=== PATIENT | female | born 1940 | race Caucasian/White ===

== ENCOUNTER 2022-11-15 21:26 | Inpatient (IN) | payer MEDICARE, OTHER, SELFPAY ==
--- NOTE | ~2022-11-15 | XR_ITS ---
EXAMINATION: XR CHEST CLINICAL INFORMATION: Cough COMPARISON: None available. TECHNIQUE: Frontal view of the chest was obtained. FINDINGS: Central density associated with the right hilum. This may represent atelectasis or infiltrate or possibly hilar increase. Central lesion cannot be excluded. The left lung is grossly clear. There is no effusion. No failure. XR/XR chest 1V IMPRESSION: Central density associated with the right hilum could represent central atelectasis or infiltrate. Hilar increase would need to be considered here. Central lesion cannot be excluded. I would in the least recommend a follow-up film after treatment to assess for resolution 4-6 weeks.
--- NOTE | ~2022-11-15 | XR_ITS ---
EXAMINATION: XR KNEE, LEFT CLINICAL INFORMATION: Pain, swelling COMPARISON: None available. TECHNIQUE: Two views of the left knee. FINDINGS: Degenerative changes. Most noted in the patellofemoral compartment. Meniscal calcifications are noted. Some calcification superior to the patellofemoral articulation could represent capsular calcification or loose body formation. Probable small effusion. XR/XR knee LT 2V IMPRESSION: Degenerative changes and probable small effusion. No acute fracture or dislocation. If further evaluation is warranted recommend MR
[2022-11-15 22:06] VITALS: BP 128/60; BP 160/70; PULSE 70; PULSE 81; RESP 18; TEMP 36.9; O2SAT 98; BMI 31.2
--- NOTE | 2022-11-15 22:06 | ECG_ITS ---
Test Reason : FATIGUE Blood Pressure : / mmHG Vent. Rate : 076 BPM Atrial Rate : 076 BPM P-R Int : 166 ms QRS Dur : 124 ms QT Int : 398 ms P-R-T Axes : 054 -29 078 degrees QTc Int : 447 ms Normal sinus rhythm Left ventricular hypertrophy with QRS widening and repolarization abnormality ( R in aVL , Polo product , Romhilt-Barrera ) Abnormal ECG When compared with ECG of 28-FEB-2019 01:11, No significant change was found Referred By: Gabriela Crowe Electronically Signed By:DAMION MAST MD
--- NOTE | 2022-11-15 22:21 | ED.URI ---
HPI - URI/Sore Throat General Chief Complaint: Upper Respiratory Symptoms Stated Complaint: Weakness/ cough Time Seen by Provider: 11/15/22 21:40 Source: patient Mode of arrival: EMS Limitations: no limitations History of Present Illness HPI Narrative: Patient comes to the emergency room complaining of cough for a week. Patient states that she has been coughing cream sputum, denies any significant shortness of breath. Patient denies fever or chills. Patient tried 2 bottles of [id number] [employer] brand cough syrup without any relief. Patient states that she is usually very active, but over last few days, she has been too weak to do her exercises. Today, patient went to use the restroom in the morning, patient was too weak to even sit up which is not like her. Patient called 911, she was helped up, she was offered to come to the hospital but she declined. Then, at night, after the patient spoke with her neighbor, son and the on-call nurse from her insurance, she was urged to come to the emergency room which she did. Related Data Allergies Allergy/AdvReac Type Severity Reaction Status Date / Time aspirin Allergy Unknown Verified 01/20/20 00:00 No Known Allergies Allergy Unverified 03/02/20 17:22 [No Known Allergies*] Review of Systems Review of Systems: Constitutional : No Weight loss, No Fever, No Chills, No Night Sweats, complaining of fatigue ENT/Mouth : No Hearing loss, No Ear Pain, No Nasal Congestion, No Sinus Pain, No Hoarseness, No sore throat, No Rhinorrhea, No Swallowing Difficulty Eyes: No Eye Pain, No Swelling, No Redness, No Foreign Body, No Discharge, No Vision Changes Cardiovascular : No Chest Pain, No SOB, No Dyspnea on Exertion, No Orthopnea, No Edema, No Palpitations Respiratory : Complaining of cough with green sputum, No Wheezing, No Smoke Exposure, No Dyspnea Gastrointestinal : No Nausea, No Vomiting, No Diarrhea, No Constipation, No abdominal Pain, No Hematochezia, No Melena Genitourinary : no irregular bleeding, No Dysuria, No Urinary Frequency, No Hematuria, No Urinary Incontinence, No Urgency, No Flank Pain, No Urinary Flow Changes, No Hesitancy Musculoskeletal : No joint pain, No Myalgias, No Joint Swelling Skin : No Skin Lesions, No rash Neuro : No Weakness, No Numbness, No Paresthesias, No Loss of Consciousness, No Dizziness, No Headache Psych : No Anxiety/Panic, No Depression, No SI/HI/AH/VH, No Social Issues, Heme/Lymph: No Bruising, No Bleeding,No Lymphadenopathy Endocrine : No Polyuria, No Polydipsia, No Temperature Intolerance [facility] Past Medical History Medical History (Updated 11/15/22 @ 23:19 by Gabriela Crowe MD) Hypertension Physical Exam Vital Signs: Vital Signs: Last Vital Signs Temp 98.4 F 11/15/22 22:06 Pulse 81 11/15/22 22:25 Resp 12 11/15/22 22:25 BP 128/60 11/15/22 22:25 Pulse Ox 98 11/15/22 22:25 O2 Del Method Room Air 11/15/22 22:25 BMI result Body Mass Index 31.2 Const: Other: Appearance: Alert. Oriented X3. No acute distress. Eyes: Pupils equal, round and reactive to light. ENT: Pharynx normal. Neck: Normal inspection. Neck supple. No lymph nodes noted. No crepitus CVS: Normal heart rate and rhythm. Pulses normal. Normal S1 and S2 Respiratory: No respiratory distress. Breath sounds normal. No Wheezing. No rales Abdomen: Soft and nontender. No rigidity. No distention. Skin: Skin warm and dry. Normal skin color. Normal skin turgor. Extremities: No lower extremity edema. No Lacerations. No Rash Neuro: Oriented X 3. No motor deficit. No sensory deficit. Moving all extremities. No slurred speech. CN 2 through 12 grossly intact Psych: calm, cooperative, normal affect Course Course Course Narrative: -all of patient's labs and imaging pending Medical Decision Making Medical Decision Making [facility] Narrative: -my interpretation of chest x-ray: Possible pneumonia -patient's white blood cell count 14.7, CT scan shows pneumonia. Patient was given ceftriaxone and azithromycin. Patient does not have a fever, sepsis not suspected. -patient is usually a very active lady, does yoga everyday. Today, she could not even get up from a seated position. -I discussed the patient with Dr. Rausch, patient being admitted Admission/Observation Consideration of admission/observation: Escalation of care including admission/observation considered Consult Healthcare Provider Management of the patient was discussed with: Hospitalist Lab Data [facility] Lab Attestation statement: I reviewed the patient's lab results. 11/15/22 22:39 11/15/22 22:39 Labs: Lab Results 11/15/22 11/15/22 11/15/22 Range/Units 22:39 22:39 22:39 WBC 14.7 H (4.8-10.8) X10*3/uL RBC 3.76 L (4.20-5.50) X10*6/uL Hgb 11.1 L (12.0-16.0) g/dl Hct 33.2 L (37.0-47.0) % MCV 88.3 (80.0-98.0) fL MCH 29.5 (27.0-33.0) pg MCHC 33.4 (31.0-35.0) g/dl RDW 13.8 (11.0-16.0) % Plt Count 215 (160-400) X10*3/uL MPV 9.6 (9.4-12.3) fL Immature Gran % (Auto) 0.7 H (0.0-0.4) % Neut % (Auto) 71.8 (45-73) % Lymph % (Auto) 11.9 L (20-40) % Fountain % (Auto) 13.8 H (2-11) % Eos % (Auto) 1.6 (0-4) % Baso % (Auto) 0.2 (0-2) % Lymph # (Auto) 1.8 (1.2-4.9) X10*3/uL Fountain # (Auto) 2.0 H (0.1-1.2) X10*3/uL Eos # (Auto) 0.2 (0.0-0.4) X10*3/uL Baso # (Auto) 0.0 (0.0-0.2) X10*3/uL Abs Immat Gran (auto) 0.10 H (0.00-0.03) X10*3/uL Absolute Neuts (auto) 10.6 H (2.0-8.3) x10*3/uL Absolute Nucleated RBC 0.000 (0.0-0.012) X10*3/uL Nucleated RBC % (auto) 0.0 (0.0-0.2) /100WBC PT (10.0-13.1) SEC INR (0.9-1.1) VBG pH (7.32-7.43) VBG pCO2 mmHg VBG pO2 mmHg VBG HCO3 (22-26) mmol/L VBG O2 Saturation % VBG Base Excess mmol/L Sodium 129 L (135-145) mmol/L Potassium 4.1 (3.3-5.1) mmol/L Chloride 95 L (96-108) mmol/L Carbon Dioxide 25 (22-29) mmol/L Anion Gap 13 (12-20) BUN 22 H (9-16) mg/dL Creatinine 0.93 (0.5-1.4) mg/dL Estim Creat Clear Calc 40.0 Estimated GFR 57 Random Glucose 108 (60-115) mg/dL Lactic Acid (0.5-2.0) mmol/L Calcium 9.2 (8.4-10.2) mg/dL Troponin I High Sens 7.6 (<3.5-17.0) ng/L B-Natriuretic Peptide (<100) pg/mL 11/15/22 11/15/22 11/15/22 Range/Units 22:39 22:39 22:39 WBC (4.8-10.8) X10*3/uL RBC (4.20-5.50) X10*6/uL Hgb (12.0-16.0) g/dl Hct (37.0-47.0) % MCV (80.0-98.0) fL MCH (27.0-33.0) pg MCHC (31.0-35.0) g/dl RDW (11.0-16.0) % Plt Count (160-400) X10*3/uL MPV (9.4-12.3) fL Immature Gran % (Auto) (0.0-0.4) % Neut % (Auto) (45-73) % Lymph % (Auto) (20-40) % Fountain % (Auto) (2-11) % Eos % (Auto) (0-4) % Baso % (Auto) (0-2) % Lymph # (Auto) (1.2-4.9) X10*3/uL Fountain # (Auto) (0.1-1.2) X10*3/uL Eos # (Auto) (0.0-0.4) X10*3/uL Baso # (Auto) (0.0-0.2) X10*3/uL Abs Immat Gran (auto) (0.00-0.03) X10*3/uL Absolute Neuts (auto) (2.0-8.3) x10*3/uL Absolute Nucleated RBC (0.0-0.012) X10*3/uL Nucleated RBC % (auto) (0.0-0.2) /100WBC PT 13.0 (10.0-13.1) SEC INR 1.1 (0.9-1.1) VBG pH (7.32-7.43) VBG pCO2 mmHg VBG pO2 mmHg VBG HCO3 (22-26) mmol/L VBG O2 Saturation % VBG Base Excess mmol/L Sodium (135-145) mmol/L Potassium (3.3-5.1) mmol/L Chloride (96-108) mmol/L Carbon Dioxide (22-29) mmol/L Anion Gap (12-20) BUN (9-16) mg/dL Creatinine (0.5-1.4) mg/dL Estim Creat Clear Calc Estimated GFR Random Glucose (60-115) mg/dL Lactic Acid 0.7 (0.5-2.0) mmol/L Calcium (8.4-10.2) mg/dL Troponin I High Sens (<3.5-17.0) ng/L B-Natriuretic Peptide 168 H (<100) pg/mL 11/15/22 Range/Units 22:44 WBC (4.8-10.8) X10*3/uL RBC (4.20-5.50) X10*6/uL Hgb (12.0-16.0) g/dl Hct (37.0-47.0) % MCV (80.0-98.0) fL MCH (27.0-33.0) pg MCHC (31.0-35.0) g/dl RDW (11.0-16.0) % Plt Count (160-400) X10*3/uL MPV (9.4-12.3) fL Immature Gran % (Auto) (0.0-0.4) % Neut % (Auto) (45-73) % Lymph % (Auto) (20-40) % Fountain % (Auto) (2-11) % Eos % (Auto) (0-4) % Baso % (Auto) (0-2) % Lymph # (Auto) (1.2-4.9) X10*3/uL Fountain # (Auto) (0.1-1.2) X10*3/uL Eos # (Auto) (0.0-0.4) X10*3/uL Baso # (Auto) (0.0-0.2) X10*3/uL Abs Immat Gran (auto) (0.00-0.03) X10*3/uL Absolute Neuts (auto) (2.0-8.3) x10*3/uL Absolute Nucleated RBC (0.0-0.012) X10*3/uL Nucleated RBC % (auto) (0.0-0.2) /100WBC PT (10.0-13.1) SEC INR (0.9-1.1) VBG pH 7.41 (7.32-7.43) VBG pCO2 44 mmHg VBG pO2 45 mmHg VBG HCO3 28 H (22-26) mmol/L VBG O2 Saturation 74.0 % VBG Base Excess 3.9 mmol/L Sodium (135-145) mmol/L Potassium (3.3-5.1) mmol/L Chloride (96-108) mmol/L Carbon Dioxide (22-29) mmol/L Anion Gap (12-20) BUN (9-16) mg/dL Creatinine (0.5-1.4) mg/dL Estim Creat Clear Calc Estimated GFR Random Glucose (60-115) mg/dL Lactic Acid (0.5-2.0) mmol/L Calcium (8.4-10.2) mg/dL Troponin I High Sens (<3.5-17.0) ng/L B-Natriuretic Peptide (<100) pg/mL Radiology Impression Discussion of test interpretation with radiology: I have reviewed the radiologist's reading. Radiologist Impression: FINDINGS: Central density associated with the right hilum. This may represent atelectasis or infiltrate or possibly hilar increase. Central lesion cannot be excluded. The left lung is grossly clear. There is no effusion. No failure. XR/XR chest 1V IMPRESSION: Central density associated with the right hilum could represent central atelectasis or infiltrate. Hilar increase would need to be considered here. Central lesion cannot be excluded. I would in the least recommend a follow-up film after treatment to assess for resolution 4-6 weeks. Critical Care Time Critical Care Time Critical Care Time: Yes Total Critical Care Time: 60 Attestation: I have personally provided critical care time. Time includes review of lab data, radiology results, discussion with consultants, and monitoring for potential decompensation. Intervention performed as documented. Discharge Plan Discharge Clinical Impression: Pneumonia, Weakness, Chronic hyponatremia Patient Disposition: Admitted As Inpatient
[2022-11-15 22:25] VITALS: BP 128/60; PULSE 81; RESP 12; O2SAT 98
[2022-11-15 22:47] LABS: Basophils Percent Auto 0.2 % (0-2); Eosinophils Absolute Auto 0.2 X10*3/uL (0.0-0.4); Eosinophils Percent Auto 1.6 % (0-4); Hematocrit 33.2 % (37.0-47.0); Hemoglobin 11.1 g/dl (12.0-16.0); Imm Gran Pct Auto 0.7 % (0.0-0.4); Lymphocytes Absolute Auto 1.8 X10*3/uL (1.2-4.9); Lymphocytes Percent Auto 11.9 % (20-40); MANUAL DIFF FLAG SCAN; Mean Corpuscular HGB Conc 33.4 g/dl (31.0-35.0); Mean Corpuscular Hemoglobin 29.5 pg (27.0-33.0); Mean Corpuscular Volume 88.3 fL (80.0-98.0); Mean Platelet Volume 9.6 fL (9.4-12.3); Monocytes Percent Auto 13.8 % (2-11); Neutrophils Absolute Auto 10.6 x10*3/uL (2.0-8.3); Neutrophils Percent Auto 71.8 % (45-73); Platelet Count 215 X10*3/uL (160-400); Red Blood Count 3.76 X10*6/uL (4.20-5.50); Red Cell Distribution Width 13.8 % (11.0-16.0); SCAN SMEAR FLAG 1; White Blood Count 14.7 X10*3/uL (4.8-10.8)
[2022-11-15 22:52] LABS: INTERNATIONAL NORM RATIO 1.1 (0.9-1.1)
[2022-11-15 22:54] LABS: VBG Base Excess 3.9 mmol/L; VBG HCO3 28 mmol/L (22-26); VBG pCO2 44 mmHg; VBG pH 7.41 (7.32-7.43); VBG pO2 45 mmHg
[2022-11-15 23:02] LABS: Lactic Acid 0.7 mmol/L (0.5-2.0)
[2022-11-15 23:05] LABS: Anion Gap 13 (12-20); Blood Urea Nitrogen 22 mg/dL (9-16); Calcium 9.2 mg/dL (8.4-10.2); Carbon Dioxide 25 mmol/L (22-29); Chloride 95 mmol/L (96-108); Estimated Glomerular Filt Rate 57; Glucose Random 108 mg/dL (60-115); Potassium 4.1 mmol/L (3.3-5.1); Sodium 129 mmol/L (135-145)
[2022-11-15 23:06] LABS: Venous Blood Gas Refer to POC result
[2022-11-15 23:09] LABS: B Type Natriuretic Peptide 168 pg/mL (<100); Troponin-I High Sensitivity 7.6 ng/L (<3.5-17.0)
[2022-11-15] MEDS: Benzonatate 100 MG CAPSULE PO (23:19)
[2022-11-15 23:22] LABS: COVID-19 Test Negative (Negative); IDNOW Serial# 08D9AD1C; IDNOW Serial# BCCEAD1C; Influenza A Negative (Negative); Influenza B2 Negative (Negative)
[2022-11-15] MEDS: Azithromycin 500 MG in 0.9 % Sodium Chloride 250 ML 125 MG IV (23:28)
[2022-11-15] MEDS: cefTRIAXone sodium 1 GM in 0.9 % Sodium Chloride 50 ML IV ×2 (23:29→23:33)
[2022-11-15] MEDS: 0.9 % Sodium Chloride 1,000 ML 999 ML IVCONT (23:30)
[2022-11-16 00:01] LABS: SLIDE REVIEW VERIFIED
[2022-11-16 00:09] LABS: Appearance Urine Clear; Color Urine Yellow; Glucose Urine UA Negative (Negative); Leukocyte Esterase Urine Negative (Negative); Nitrite Urine Negative (Negative); PH 5.5 (5.0-9.0); Specific Gravity - Urine <= 1.005 (1.005-1.025); Urine Blood Negative (Negative); Urine Ketones Negative (Negative); Urine Protein Trace mg/dL (Neg-Trace)
[2022-11-16 01:00] VITALS: PULSE 77; O2SAT 98
[2022-11-16 01:04] LABS: Uric Acid 5.3 mg/dL (2.4-5.7)
[2022-11-16 01:53] VITALS: BMI 29.5
--- NOTE | 2022-11-16 02:11 | PC.NURSE ---
Addendum entered by Jaqui Banegas RN 11/16/22 02:27: patient receiving nurse was notified of the medication occurence Original Note: patient report was given to the receiving nurse patient was [id number] patient had no complaints of pain at this time patient was stable and clear to be transferred safely to the receiving unit
--- NOTE | 2022-11-16 02:23 | PC.NURSE ---
Patient received one order of ceftraixone 1g only not two dosages pharmacy was notified of the occurrence pharmacy advised to write a note due to the error could not be corrected at this time infusion began at [id number] 15, 2022 as noted in the mar and please disregard cancelled order for 2329November 15, 2022
[2022-11-16] MEDS: traMADoL HCL 50 MG TABLET PO (02:45)
[2022-11-16] MEDS: traZODone HCL 50 MG TABLET PO ×2 (02:45→21:49)
[2022-11-16] MEDS: guaiFENesin DM 100/10/5 ML 5 ML SYRUP PO ×3 (02:46→12:04)
[2022-11-16] MEDS: Benzonatate 100 MG CAPSULE PO ×4 (02:46→21:49)
[2022-11-16] MEDS: Erythromycin Base 0.5% Oph Oin 1 GM TUBE 1 CM EYE-BOTH ×3 (02:48→21:49)
[2022-11-16 02:59] VITALS: BP 148/64; PULSE 73; RESP 16; TEMP 37.2; O2SAT 96
--- NOTE | 2022-11-16 06:19 | P.HPHOSP_ITS ---
History of Present Illness Date of Service: 11/15/22 Chief Complaint: Cough 82-year-old female with past medical history of hypertension, depression, neurogenic bladder, chronic pain presents the hospital with complaints of cough for the past 1 week. Patient reports that her cough has worsened, she has also had shortness of breath, and worsening weakness to the point that now she has difficulty ambulating from her chair to the kitchen. Patient lives alone, is usually completely independent. Patient denies any fever no chills, no chest pain, no abdominal pain, no nausea or vomiting, no diarrhea constipation, no urinary symptoms, no lower extremity edema. Patient is complaining of left knee pain and swelling, status chronic arthritis On arrival to the ED patient hemodynamically stable no significant abnormal vitals Labs are significant for WBC count of 14.7, hemoglobin of 11.1, hematocrit 33.2, sodium of 129 which is chronically in the same range, BNP of 168, COVID-19, and influenza negative X-ray of the knee shows central density associated with right hilum which can represent infiltrate, mass cannot be ruled out, recommended repeat imaging after resolution of pneumonia and for 6 weeks Review of Systems Review of Systems: Yes all other systems are reviewed and are negative [facility] Medical History Arthritis Chronic pain Hypertension Neurogenic bladder Surgical History (Updated 11/16/22 @ 06:25 by Lizbeth Galdamez MD) Previous back surgery Social History Alcohol intake: never Patient Tobacco Use Status: Never used Tobacco Smoked in Last 30 Days: No Use of substances other than those prescribed or required for medical reasons: No Advance Directives: No Advance Directives Information Provided: Yes Nutrition Risks: No Nutritional Risk Meds Allergies Allergy/AdvReac Type Severity Reaction Status Date / Time aspirin Allergy Unknown Hives Verified 11/15/22 23:25 Active Medications: Current Medications Acetaminophen (Acetaminophen 325 Mg Tablet) 650 mg PO Q6H PRN PRN Reason: Pain, Mild (Pain Scale 1-3) Amlodipine Besylate (Amlodipine Besylate 5 Mg Tablet) 5 mg PO DAILY [facility] Benzonatate (Benzonatate 100 Mg Capsule) 100 mg PO TID [facility] Last Admin: 11/16/22 02:46 Dose: 100 mg Carvedilol (Carvedilol 6.25 Mg Tablet) 6.25 mg PO BID [facility]; Protocol Celecoxib (Celecoxib 200 Mg Capsule) 200 mg PO DAILY [facility] Docusate Sodium (Docusate Sodium 100 Mg Capsule) 100 mg PO DAILY PRN PRN Reason: Constipation Enoxaparin Sodium (Enoxaparin Sodium 40 Mg/0.4 Ml Syringe) 40 mg SUBCUT Q24H [facility] Erythromycin (Erythromycin Base 0.5% Oph Oin 1 Gm Tube) 1 cm EYE-BOTH BID [facility] Last Admin: 11/16/22 02:48 Dose: 1 cm Escitalopram Oxalate (Escitalopram Oxalate 20 Mg Tablet) 20 mg PO DAILY [facility] Guaifenesin/Dextromethorphan (Guaifenesin Dm 100/10/5 Ml 5 Ml Syrup) 5 ml PO Q4H PRN PRN Reason: couh Last Admin: 11/16/22 02:46 Dose: 5 ml Hydralazine HCl (Hydralazine Hcl 10 Mg Tablet) 10 mg PO BID [facility]; Protocol Hydroxyzine HCl (Hydroxyzine Hcl 10 Mg Tablet) 10 mg PO BID [facility] Azithromycin 500 mg/ Sodium (Chloride) 250 mls @ 125 mls/hr IV Q24H [facility] Ceftriaxone Sodium 1 gm/ (Sodium Chloride) 50 mls @ 100 mls/hr IV Q24H [facility] Lisinopril (Lisinopril 20 Mg Tablet) 20 mg PO DAILY [facility] Mirabegron (Mirabegron 50 Mg Tab.Er.24h) 50 mg PO DAILY [facility] Omeprazole (Omeprazole 40 Mg Capsule.Dr) 40 mg PO DAILY [facility] Ondansetron HCl (Ondansetron Hcl 4 Mg/2 Ml Vial) 4 mg IVPUSH Q8H PRN PRN Reason: Nausea and Vomiting Pharmacy Consult (Consult Rx Perform Med Rec) 1 each MISCELLANE ONCE PRN PRN Reason: Consult order Pravastatin Sodium (Pravastatin Sodium 40 Mg Tablet) 40 mg PO DAILY [facility] Sodium Chloride (0.9 % Sodium Chloride Flush 3 Ml Syringe) 3 ml IVFLUSH QSHIFT [facility] Last Admin: 11/16/22 00:27 Dose: Not Given Tramadol HCl (Tramadol Hcl 50 Mg Tablet) 50 mg PO QID PRN PRN Reason: Pain, Severe (Pain Scale 7-10) Last Admin: 11/16/22 02:45 Dose: 50 mg Trazodone HCl (Trazodone Hcl 50 Mg Tablet) 50 mg PO BEDTIME [facility] Last Admin: 11/16/22 02:45 Dose: 50 mg Home Medications Medication Instructions Recorded Confirmed Last Taken Type amlodipine 5 mg-benazepril 20 mg 1 cap PO DAILY 11/16/22 11/16/22 Unknown History capsule benzonatate 100 mg capsule 100 mg PO TID 11/16/22 11/16/22 Unknown History carvedilol 6.25 mg tablet 6.25 mg PO BID 11/16/22 11/16/22 Unknown History celecoxib 200 mg capsule 200 mg PO DAILY 11/16/22 11/16/22 Unknown History citalopram 40 mg tablet 40 mg PO DAILY 11/16/22 11/16/22 Unknown History hydralazine 10 mg tablet 10 mg PO BID 11/16/22 11/16/22 Unknown History hydroxyzine HCl 10 mg tablet 10 mg PO BID 11/16/22 11/16/22 Unknown History ketoconazole 1 % shampoo (Nizoral topical Q3D 11/16/22 Unknown History A-D) mirabegron 50 mg tablet,extended 50 mg PO DAILY 11/16/22 11/16/22 Unknown History release 24 hr (Myrbetriq) omeprazole 40 mg capsule,delayed 40 mg PO DAILY 11/16/22 11/16/22 Unknown History release pravastatin 40 mg tablet 40 mg PO DAILY 11/16/22 11/16/22 Unknown History tramadol 50 mg tablet 50 mg PO QID PRN pain 11/16/22 11/16/22 Unknown History trazodone 50 mg tablet 50 mg PO BEDTIME 11/16/22 11/16/22 Unknown History Physical Exam Vital Signs and Narrative: Vital Signs: Last Vital Signs Temp 99 F 11/16/22 02:59 Pulse 73 11/16/22 02:59 Resp 16 11/16/22 02:59 BP 148/64 H 11/16/22 02:59 Pulse Ox 96 11/16/22 02:59 O2 Del Method Room Air 11/16/22 02:59 BMI result Body Mass Index 29.5 Const: General: cooperative and no acute distress Orientation/consciousness: patient oriented x3 Eyes: General: appearance normal, both eyes and all related structures Resp: Effort & Inspection: normal respiratory effort Auscultation: clear to auscultation bilaterally Cardio: Rate: regular rate Rhythm: regular rhythm GI: Palpation (GI): Soft to palpation Auscultation: normal bowel sounds Skin: General skin exam: no rashes or lesions noted Neuro: General: patient oriented x3 Cognition (Neuro): normal cognition Extrem: Other: Left knee mild tenderness, warm, slightlyedematous, no erythema General: Yes normal to inspection and Yes no pedal edema Results Labs 11/15/22 22:39 11/15/22 22:39 Labs: Laboratory Results - last 24 hr 11/15/22 11/15/22 11/15/22 22:39 22:39 22:39 MCV 88.3 MCH 29.5 MCHC 33.4 RDW 13.8 Plt Count 215 MPV 9.6 Immature Gran % (Auto) 0.7 H Neut % (Auto) 71.8 Lymph % (Auto) 11.9 L [place] % (Auto) 13.8 H Eos % (Auto) 1.6 Baso % (Auto) 0.2 Lymph # (Auto) 1.8 [place] # (Auto) 2.0 H Eos # (Auto) 0.2 Baso # (Auto) 0.0 Abs Immat Gran (auto) 0.10 H Absolute Neuts (auto) 10.6 H Absolute Nucleated RBC 0.000 Nucleated RBC % (auto) 0.0 Smear Tech's Comments VERIFIED PT INR VBG pH VBG pCO2 VBG pO2 VBG HCO3 VBG O2 Saturation VBG Base Excess Anion Gap 13 Estim Creat Clear Calc 40.0 Estimated GFR 57 Random Glucose 108 Lactic Acid Uric Acid Calcium 9.2 Troponin I High Sens 7.6 B-Natriuretic Peptide Urine Color Urine Appearance Urine pH Ur Specific [place] Urine Protein Urine Glucose (UA) Urine Ketones Urine Blood Urine Nitrite Ur Leukocyte Esterase COVID-19 ([facility]) COVID-19 Clin Com Influenza Type A (FITZ) Influenza Type B (FITZ) Influenza A & B Note 11/15/22 11/15/22 11/15/22 22:39 22:39 22:39 MCV MCH MCHC RDW Plt Count MPV Immature Gran % (Auto) Neut % (Auto) Lymph % (Auto) [place] % (Auto) Eos % (Auto) Baso % (Auto) Lymph # (Auto) [place] # (Auto) Eos # (Auto) Baso # (Auto) Abs Immat Gran (auto) Absolute Neuts (auto) Absolute Nucleated RBC Nucleated RBC % (auto) Smear Tech's Comments PT 13.0 INR 1.1 VBG pH VBG pCO2 VBG pO2 VBG HCO3 VBG O2 Saturation VBG Base Excess Anion Gap Estim Creat Clear Calc Estimated GFR Random Glucose Lactic Acid 0.7 Uric Acid Calcium Troponin I High Sens B-Natriuretic Peptide Urine Color Urine Appearance Urine pH Ur Specific [place] Urine Protein Urine Glucose (UA) Urine Ketones Urine Blood Urine Nitrite Ur Leukocyte Esterase COVID-19 ([facility]ANTI) Negative COVID-19 Clin Com See Note Influenza Type A (FITZ) Influenza Type B (FITZ) Influenza A & B Note 11/15/22 11/15/22 11/15/22 22:39 22:39 22:44 MCV MCH MCHC RDW Plt Count MPV Immature Gran % (Auto) Neut % (Auto) Lymph % (Auto) [place] % (Auto) Eos % (Auto) Baso % (Auto) Lymph # (Auto) [place] # (Auto) Eos # (Auto) Baso # (Auto) Abs Immat Gran (auto) Absolute Neuts (auto) Absolute Nucleated RBC Nucleated RBC % (auto) Smear Tech's Comments PT INR VBG pH 7.41 VBG pCO2 44 VBG pO2 45 VBG HCO3 28 H VBG O2 Saturation 74.0 VBG Base Excess 3.9 Anion Gap Estim Creat Clear Calc Estimated GFR Random Glucose Lactic Acid Uric Acid Calcium Troponin I High Sens B-Natriuretic Peptide 168 H Urine Color Urine Appearance Urine pH Ur Specific [place] Urine Protein Urine Glucose (UA) Urine Ketones Urine Blood Urine Nitrite Ur Leukocyte Esterase COVID-19 ([facility]ANTI) COVID-19 Clin Com Influenza Type A (FITZ) Negative Influenza Type B (FITZ) Negative Influenza A & B Note See Note 11/15/22 11/16/22 23:49 00:33 MCV MCH MCHC RDW Plt Count MPV Immature Gran % (Auto) Neut % (Auto) Lymph % (Auto) [place] % (Auto) Eos % (Auto) Baso % (Auto) Lymph # (Auto) [place] # (Auto) Eos # (Auto) Baso # (Auto) Abs Immat Gran (auto) Absolute Neuts (auto) Absolute Nucleated RBC Nucleated RBC % (auto) Smear Tech's Comments PT INR VBG pH VBG pCO2 VBG pO2 VBG HCO3 VBG O2 Saturation VBG Base Excess Anion Gap Estim Creat Clear Calc Estimated GFR Random Glucose Lactic Acid Uric Acid 5.3 Calcium Troponin I High Sens B-Natriuretic Peptide Urine Color Yellow Urine Appearance Clear Urine pH 5.5 Ur Specific [place] <= 1.005 Urine Protein Trace Urine Glucose (UA) Negative Urine Ketones Negative Urine Blood Negative Urine Nitrite Negative Ur Leukocyte Esterase Negative COVID-19 ([facility]ANTI) COVID-19 Clin Com Influenza Type A (FITZ) Influenza Type B (FITZ) Influenza A & B Note Imaging Radiologist's Impressions: Impressions Chest X-Ray 11/15/22 22:14 IMPRESSION: Central density associated with the right hilum could represent central atelectasis or infiltrate. Hilar increase would need to be considered here. Central lesion cannot be excluded. I would in the least recommend a follow-up film after treatment to assess for resolution 4-6 weeks. Knee X-Ray 11/16/22 00:15 IMPRESSION: Degenerative changes and probable small effusion. No acute fracture or dislocation. If further evaluation is warranted recommend MR Chest Xray : XR/XR chest 1V IMPRESSION: Central density associated with the right hilum could represent central atelectasis or infiltrate. Hilar increase would need to be considered here. Central lesion cannot be excluded. I would in the least recommend a follow-up film after treatment to assess for resolution 4-6 weeks. ? Assessment and Plan (1) Pneumonia: Status: Acute (2) Weakness: Status: Acute (3) Chronic hyponatremia: Status: Acute Plan 82-year-old female past medical history of hypertension presents the hospital with complaints cough, shortness of breath found to have pneumonia # community-acquired pneumonia - CURB-62: 2 - no leukocytosis, chest x-ray findings as above - treat with IV antibiotics - follow cultures - recommend repeating x-ray in 4-6 weeks to evaluate for the hilum density # generalized weakness - secondary to acute illness - physical therapy consulted # chronic hyponatremia - started on some NS - follow BMP # knee pain - likely secondary to osteoarthritis - knee x-ray negative, uric acid normal - recommend outpatient follow-up - if continues to have pain while inpatient, can consider ortho evaluation - Tylenol p.r.n. # hypertension - stable - continue home antihypertensives # neurogenic bladder - continue myrbetriq DVT prophylaxis: Lovenox Given patient's need for IV antibiotics as well as evaluation by Physical therapy for significant weakness unable to take care of herself at home patient require minimum 2 nights inpatient hospital stay for further management and monitoring Time Spent With Patient Time: Total time managing care of this patient today ____ minutes. Quality Stroke Does the patient have a stroke diagnosis?: No VTE Prior VTE?: No VTE Risk Level:: Medical - moderate - high VTE Device Contraindication: Treatment Not Indicated VTE Drug Contraindication: N/A - Med Ordered
[2022-11-16 06:32] LABS: Basophils Percent Auto 0.2 % (0-2); Eosinophils Absolute Auto 0.1 X10*3/uL (0.0-0.4); Eosinophils Percent Auto 1.1 % (0-4); Hematocrit 28.2 % (37.0-47.0); Hemoglobin 9.4 g/dl (12.0-16.0); Imm Gran Pct Auto 0.8 % (0.0-0.4); Lymphocytes Absolute Auto 1.6 X10*3/uL (1.2-4.9); Lymphocytes Percent Auto 13.1 % (20-40); MANUAL DIFF FLAG SCAN; Mean Corpuscular HGB Conc 33.3 g/dl (31.0-35.0); Mean Corpuscular Hemoglobin 29.8 pg (27.0-33.0); Mean Corpuscular Volume 89.5 fL (80.0-98.0); Mean Platelet Volume 10.3 fL (9.4-12.3); Monocytes Absolute Auto 1.7 X10*3/uL (0.1-1.2); Monocytes Percent Auto 13.8 % (2-11); Neutrophils Absolute Auto 8.9 x10*3/uL (2.0-8.3); Platelet Count 202 X10*3/uL (160-400); Red Blood Count 3.15 X10*6/uL (4.20-5.50); Red Cell Distribution Width 13.6 % (11.0-16.0); SCAN SMEAR FLAG 1; White Blood Count 12.5 X10*3/uL (4.8-10.8)
[2022-11-16 06:43] LABS: Anion Gap 11 (12-20); Blood Urea Nitrogen 17 mg/dL (9-16); Calcium 8.5 mg/dL (8.4-10.2); Carbon Dioxide 25 mmol/L (22-29); Chloride 101 mmol/L (96-108); Creatinine Clr Calc Pharmacy 48.2; Estimated Glomerular Filt Rate > 60; Glucose Random 109 mg/dL (60-115); Potassium 3.9 mmol/L (3.3-5.1); Sodium 133 mmol/L (135-145)
--- NOTE | 2022-11-16 07:39 | PHA.MEDREC ---
med rec completed by nursing overnight, reviewed by pharmacy Pharmacy Consult ? Medication Reconciliation Pharmacy has completed the medication reconciliation.
[2022-11-16 07:46] VITALS: BP 172/75; PULSE 79; RESP 18; TEMP 36.8; O2SAT 97
[2022-11-16] MEDS: Lidocaine 4 % Patch ADH..PATCH 1 PATCH TRANSDERMA (08:10)
[2022-11-16] MEDS: Acetaminophen 325 MG TABLET 975 MG PO ×2 (08:11→15:39)
[2022-11-16] MEDS: Pravastatin Sodium 40 MG TABLET PO (08:12)
[2022-11-16] MEDS: Celecoxib 200 MG CAPSULE PO (08:12)
[2022-11-16] MEDS: Enoxaparin Sodium 40 MG/0.4 ML SYRINGE SUBCUT (08:12)
[2022-11-16] MEDS: Escitalopram Oxalate 20 MG TABLET PO (08:12)
[2022-11-16] MEDS: Mirabegron 50 MG TAB.ER.24H PO (08:12)
[2022-11-16] MEDS: hydrALAZINE HCl 10 MG TABLET PO ×2 (08:12→21:49)
[2022-11-16] MEDS: Docusate Sodium 100 MG CAPSULE PO (08:12)
[2022-11-16] MEDS: amLODIPine Besylate 5 MG TABLET PO (08:12)
[2022-11-16] MEDS: Omeprazole 40 MG CAPSULE.DR PO (08:13)
[2022-11-16] MEDS: hydrOXYzine HCL 10 MG TABLET PO ×2 (08:13→21:49)
[2022-11-16] MEDS: carvediloL 6.25 MG TABLET PO (08:13)
[2022-11-16] MEDS: 0.9 % Sodium Chloride Flush 3 ML SYRINGE IVFLUSH ×2 (08:13→15:40)
[2022-11-16] MEDS: lisinopriL 20 MG TABLET PO (08:13)
[2022-11-16 09:42] VITALS: BP 172/75; PULSE 79; O2SAT 97
--- NOTE | 2022-11-16 11:29 | P.PNIM_ITS ---
Subjective Subjective Date of Service: 11/16/22 Interval History: community-acquired pneumonia Review of Systems Patient feel shortness of breath with minimal exertion, generalized very weak, has aggressive cough. Denies any chest pain or nausea vomiting or abdominal pain. No fever or chills. Blood pressure elevated. Physical Exam Vital Signs: Vital Signs: Last Vital Signs Temp 98.3 F 11/16/22 07:46 Pulse 79 11/16/22 09:42 Resp 18 11/16/22 07:46 BP 172/75 H 11/16/22 09:42 Pulse Ox 97 11/16/22 09:42 O2 Del Method Room Air 11/16/22 07:46 BMI result Body Mass Index 29.5 Appearance: Alert.? Oriented X3.? cvs: rrr, [id number] . res: Air entry fair, slightly diminished on the right side. No wheezing or rales abd: no rebound or guarding ,nt, bs present. ext pulses present , no cyanosis . neuro: axo3 , nonfocal. Objective Data Active Medications Acetaminophen (Acetaminophen 325 Mg Tablet) 975 mg PO Q8H [facility] Last Admin: 11/16/22 08:11 Dose: 975 mg Documented By: [email or web address].COTEMA Amlodipine Besylate (Amlodipine Besylate 5 Mg Tablet) 5 mg PO DAILY [facility] Last Admin: 11/16/22 08:12 Dose: 5 mg Documented By: AURELIA.COTEMA Benzonatate (Benzonatate 100 Mg Capsule) 100 mg PO TID [facility] Last Admin: 11/16/22 08:13 Dose: 100 mg Documented By: AURELIA.COTEMA Capsaicin (Capsaicin 0.025% Cream 60 Gm Tube) 1 appl TOPICAL TID PRN; Protocol PRN Reason: Pain, Mild (Pain Scale 1-3) Celecoxib (Celecoxib 200 Mg Capsule) 200 mg PO DAILY [facility] Last Admin: 11/16/22 08:12 Dose: 200 mg Documented By: AURELIA.COTEMA Docusate Sodium (Docusate Sodium 100 Mg Capsule) 100 mg PO DAILY PRN PRN Reason: Constipation Last Admin: 11/16/22 08:12 Dose: 100 mg Documented By: AURELIA.COTEMA Enoxaparin Sodium (Enoxaparin Sodium 40 Mg/0.4 Ml Syringe) 40 mg SUBCUT Q24H [facility] Last Admin: 11/16/22 08:12 Dose: 40 mg Documented By: HO.COTEMA Erythromycin (Erythromycin Base 0.5% Oph Oin 1 Gm Tube) 1 cm EYE-BOTH BID [facility] Last Admin: 11/16/22 08:12 Dose: 1 cm Documented By: COTEMA Escitalopram Oxalate (Escitalopram Oxalate 20 Mg Tablet) 20 mg PO DAILY [facility] Last Admin: 11/16/22 08:12 Dose: 20 mg Documented By: COTEMA Guaifenesin/Dextromethorphan (Guaifenesin Dm 100/10/5 Ml 5 Ml Syrup) 5 ml PO Q4H PRN PRN Reason: couh Last Admin: 11/16/22 08:11 Dose: 5 ml Documented By: COTEMA Hydralazine HCl (Hydralazine Hcl 10 Mg Tablet) 10 mg PO BID [facility]; Protocol Last Admin: 11/16/22 08:12 Dose: 10 mg Documented By: AURELIA.COTEMA Hydroxyzine HCl (Hydroxyzine Hcl 10 Mg Tablet) 10 mg PO BID [facility] Last Admin: 11/16/22 08:13 Dose: 10 mg Documented By: COTEMA Azithromycin 500 mg/ Sodium (Chloride) 250 mls @ 125 mls/hr IV Q24H [facility] Ceftriaxone Sodium 1 gm/ (Sodium Chloride) 50 mls @ 100 mls/hr IV Q24H [facility] Lidocaine (Lidocaine 4 % Patch Adh..Patch) 1 patch TRANSDERMA DAILY [facility]; Protocol Last Admin: 11/16/22 08:10 Dose: 1 patch Documented By: COTEMA Lisinopril (Lisinopril 20 Mg Tablet) 20 mg PO DAILY [facility] Last Admin: 11/16/22 08:13 Dose: 20 mg Documented By: COTEMA Mirabegron (Mirabegron 50 Mg Tab.Er.24h) 50 mg PO DAILY [facility] Last Admin: 11/16/22 08:12 Dose: 50 mg Documented By: COTEMA Omeprazole (Omeprazole 40 Mg Capsule.Dr) 40 mg PO DAILY [facility] Last Admin: 11/16/22 08:13 Dose: 40 mg Documented By: COTEMA Ondansetron HCl (Ondansetron Hcl 4 Mg/2 Ml Vial) 4 mg IVPUSH Q8H PRN PRN Reason: Nausea and Vomiting Pharmacy Consult (Consult Rx Perform Med Rec) 1 each MISCELLANE ONCE PRN PRN Reason: Consult order Pravastatin Sodium (Pravastatin Sodium 40 Mg Tablet) 40 mg PO DAILY [facility] Last Admin: 11/16/22 08:12 Dose: 40 mg Documented By: COTEMA Sodium Chloride (0.9 % Sodium Chloride Flush 3 Ml Syringe) 3 ml IVFLUSH QSHIFT [facility] Last Admin: 11/16/22 08:13 Dose: 3 ml Documented By: COTEMA Tramadol HCl (Tramadol Hcl 50 Mg Tablet) 50 mg PO QID PRN PRN Reason: Pain, Severe (Pain Scale 7-10) Last Admin: 11/16/22 02:45 Dose: 50 mg Documented By: JOSE Trazodone HCl (Trazodone Hcl 50 Mg Tablet) 50 mg PO BEDTIME [facility] Last Admin: 11/16/22 02:45 Dose: 50 mg Documented By: JOSE Labs 11/16/22 05:29 11/16/22 05:29 Labs: Laboratory Results - last 24 hr 11/15/22 11/15/22 11/15/22 22:39 22:39 22:39 MCV 88.3 MCH 29.5 MCHC 33.4 RDW 13.8 Plt Count 215 MPV 9.6 Immature Gran % (Auto) 0.7 H Neut % (Auto) 71.8 Lymph % (Auto) 11.9 L [place] % (Auto) 13.8 H Eos % (Auto) 1.6 Baso % (Auto) 0.2 Lymph # (Auto) 1.8 [place] # (Auto) 2.0 H Eos # (Auto) 0.2 Baso # (Auto) 0.0 Abs Immat Gran (auto) 0.10 H Absolute Neuts (auto) 10.6 H Absolute Nucleated RBC 0.000 Nucleated RBC % (auto) 0.0 Smear Tech's Comments VERIFIED PT INR VBG pH VBG pCO2 VBG pO2 VBG HCO3 VBG O2 Saturation VBG Base Excess Anion Gap 13 Estim Creat Clear Calc 40.0 Estimated GFR 57 Random Glucose 108 Lactic Acid Uric Acid Calcium 9.2 Troponin I High Sens 7.6 B-Natriuretic Peptide Urine Color Urine Appearance Urine pH Ur Specific [place] Urine Protein Urine Glucose (UA) Urine Ketones Urine Blood Urine Nitrite Ur Leukocyte Esterase COVID-19 ([facility]) COVID-19 Clin Com Influenza Type A ([facility]) Influenza Type B ([facility]) Influenza A & B Note 11/15/22 11/15/22 11/15/22 22:39 22:39 22:39 MCV MCH MCHC RDW Plt Count MPV Immature Gran % (Auto) Neut % (Auto) Lymph % (Auto) [place] % (Auto) Eos % (Auto) Baso % (Auto) Lymph # (Auto) [place] # (Auto) Eos # (Auto) Baso # (Auto) Abs Immat Gran (auto) Absolute Neuts (auto) Absolute Nucleated RBC Nucleated RBC % (auto) Smear Tech's Comments PT 13.0 INR 1.1 VBG pH VBG pCO2 VBG pO2 VBG HCO3 VBG O2 Saturation VBG Base Excess Anion Gap Estim Creat Clear Calc Estimated GFR Random Glucose Lactic Acid 0.7 Uric Acid Calcium Troponin I High Sens B-Natriuretic Peptide Urine Color Urine Appearance Urine pH Ur Specific [place] Urine Protein Urine Glucose (UA) Urine Ketones Urine Blood Urine Nitrite Ur Leukocyte Esterase COVID-19 ([facility]I) Negative COVID-19 Clin Com See Note Influenza Type A ([facility]Z) Influenza Type B ([facility]) Influenza A & B Note 11/15/22 11/15/22 11/15/22 22:39 22:39 22:44 MCV MCH MCHC RDW Plt Count MPV Immature Gran % (Auto) Neut % (Auto) Lymph % (Auto) [place] % (Auto) Eos % (Auto) Baso % (Auto) Lymph # (Auto) [place] # (Auto) Eos # (Auto) Baso # (Auto) Abs Immat Gran (auto) Absolute Neuts (auto) Absolute Nucleated RBC Nucleated RBC % (auto) Smear Tech's Comments PT INR VBG pH 7.41 VBG pCO2 44 VBG pO2 45 VBG HCO3 28 H VBG O2 Saturation 74.0 VBG Base Excess 3.9 Anion Gap Estim Creat Clear Calc Estimated GFR Random Glucose Lactic Acid Uric Acid Calcium Troponin I High Sens B-Natriuretic Peptide 168 H Urine Color Urine Appearance Urine pH Ur Specific [place] Urine Protein Urine Glucose (UA) Urine Ketones Urine Blood Urine Nitrite Ur Leukocyte Esterase COVID-19 ([facility]I) COVID-19 Clin Com Influenza Type A ([facility]) Negative Influenza Type B ([facility]Z) Negative Influenza A & B Note See Note 11/15/22 11/16/22 11/16/22 23:49 00:33 05:29 MCV 89.5 MCH 29.8 MCHC 33.3 RDW 13.6 Plt Count 202 MPV 10.3 Immature Gran % (Auto) 0.8 H Neut % (Auto) 71.0 Lymph % (Auto) 13.1 L [place] % (Auto) 13.8 H Eos % (Auto) 1.1 Baso % (Auto) 0.2 Lymph # (Auto) 1.6 [place] # (Auto) 1.7 H Eos # (Auto) 0.1 Baso # (Auto) 0.0 Abs Immat Gran (auto) 0.10 H Absolute Neuts (auto) 8.9 H Absolute Nucleated RBC 0.000 Nucleated RBC % (auto) 0.0 Smear Tech's Comments PT INR VBG pH VBG pCO2 VBG pO2 VBG HCO3 VBG O2 Saturation VBG Base Excess Anion Gap Estim Creat Clear Calc Estimated GFR Random Glucose Lactic Acid Uric Acid 5.3 Calcium Troponin I High Sens B-Natriuretic Peptide Urine Color Yellow Urine Appearance Clear Urine pH 5.5 Ur Specific [place] <= 1.005 Urine Protein Trace Urine Glucose (UA) Negative Urine Ketones Negative Urine Blood Negative Urine Nitrite Negative Ur Leukocyte Esterase Negative COVID-19 ([facility]ANTI) COVID-19 Clin Com Influenza Type A ([facility]Z) Influenza Type B ([facility]) Influenza A & B Note 11/16/22 05:29 MCV MCH MCHC RDW Plt Count MPV Immature Gran % (Auto) Neut % (Auto) Lymph % (Auto) [place] % (Auto) Eos % (Auto) Baso % (Auto) Lymph # (Auto) [place] # (Auto) Eos # (Auto) Baso # (Auto) Abs Immat Gran (auto) Absolute Neuts (auto) Absolute Nucleated RBC Nucleated RBC % (auto) Smear Tech's Comments PT INR VBG pH VBG pCO2 VBG pO2 VBG HCO3 VBG O2 Saturation VBG Base Excess Anion Gap 11 L Estim Creat Clear Calc 48.2 Estimated GFR > 60 Random Glucose 109 Lactic Acid Uric Acid Calcium 8.5 D Troponin I High Sens B-Natriuretic Peptide Urine Color Urine Appearance Urine pH Ur Specific [place] Urine Protein Urine Glucose (UA) Urine Ketones Urine Blood Urine Nitrite Ur Leukocyte Esterase COVID-19 (SANTI) COVID-19 Clin Com Influenza Type A (FITZ) Influenza Type B (FITZ) Influenza A & B Note Assessment and Plan (1) Pneumonia: Status: Acute (2) Weakness: Status: Acute Plan 82-year-old female past medical history of hypertension presents the hospital with complaints cough, shortness of breath found to have pneumonia community-acquired pneumonia: curb-1, sob with minimum excersion ,generalised weak. no leukocytosis, chest x-ray : possible pna,blood cultures pending treat with IV antibiotics-ceftriaxone /azithomycin (start date 11/15/22), recommend repeating x-ray in 4-6 weeks to evaluate for the hilum density generalized weakness- secondary to acute illness physical therapy consulted chronic hyponatremia- sodium 133 no need for further fluids,follow BMP as needed. knee pain- thougtht to likely secondary to osteoarthritis knee x-ray negative, uric acid normal recommend outpatient [id number] ,capscian cream/licocaine patch,tramadol prn PT eval. hypertension uncontrolled- adjusted coreg ,comtine ROMERO & amlodipine. neurogenic bladder- continue myrbetriq DVT prophylaxis: Lovenox ongoing inpatient need : pneumonia -not improving -need IV antibiotics as well as evaluation by Physical therapy for significant weakness unable to take care of herself at home . Time Spent With Patient Time: Total time managing care of this patient today ____ minutes. Quality Stroke Does the patient have a stroke diagnosis?: No VTE Prior VTE?: No VTE Risk Level:: Medical - moderate - high VTE Device Contraindication: Treatment Not Indicated VTE Drug Contraindication: N/A - Med Ordered
[2022-11-16 12:22] LABS: Procalcitonin 0.04 ng/mL
[2022-11-16] MEDS: guaiFENesin 100 MG/5 ML LIQUID 10 ML PO ×2 (15:40→21:48)
[2022-11-16 16:10] VITALS: BP 150/66; PULSE 61; RESP 18; TEMP 36.4; O2SAT 97
[2022-11-16 20:00] VITALS: BP 170/77; PULSE 75; RESP 17; TEMP 36.7; O2SAT 98
[2022-11-16] MEDS: carvediloL 12.5 MG TABLET PO (21:49)
[2022-11-16] MEDS: cefTRIAXone sodium 1 GM in 0.9 % Sodium Chloride 50 ML IV (21:50)
[2022-11-16] MEDS: Azithromycin 500 MG in 0.9 % Sodium Chloride 250 ML 125 MG IV (21:51)
[2022-11-17 03:25] VITALS: BP 150/50; PULSE 63; RESP 14; TEMP 36.6; O2SAT 96
[2022-11-17] MEDS: guaiFENesin 100 MG/5 ML LIQUID 10 ML PO ×4 (03:28→20:26)
[2022-11-17 08:00] VITALS: BP 170/60; PULSE 73; RESP 18; TEMP 36.8; O2SAT 97
[2022-11-17] MEDS: Enoxaparin Sodium 40 MG/0.4 ML SYRINGE SUBCUT (08:49)
[2022-11-17] MEDS: Mirabegron 50 MG TAB.ER.24H PO (08:49)
[2022-11-17] MEDS: hydrOXYzine HCL 10 MG TABLET PO ×2 (08:49→20:26)
[2022-11-17] MEDS: Celecoxib 200 MG CAPSULE PO (08:49)
[2022-11-17] MEDS: amLODIPine Besylate 5 MG TABLET PO (08:50)
[2022-11-17] MEDS: hydrALAZINE HCl 10 MG TABLET PO ×2 (08:50→20:26)
[2022-11-17] MEDS: Omeprazole 40 MG CAPSULE.DR PO (08:50)
[2022-11-17] MEDS: Acetaminophen 325 MG TABLET 975 MG PO ×2 (08:50→16:10)
[2022-11-17] MEDS: Pravastatin Sodium 40 MG TABLET PO (08:50)
[2022-11-17] MEDS: Escitalopram Oxalate 20 MG TABLET PO (08:50)
[2022-11-17] MEDS: carvediloL 12.5 MG TABLET PO ×2 (08:50→20:26)
[2022-11-17] MEDS: lisinopriL 20 MG TABLET PO (08:50)
[2022-11-17] MEDS: Erythromycin Base 0.5% Oph Oin 1 GM TUBE 1 CM EYE-BOTH ×2 (08:51→20:27)
[2022-11-17] MEDS: Lidocaine 4 % Patch ADH..PATCH 1 PATCH TRANSDERMA (08:51)
[2022-11-17] MEDS: 0.9 % Sodium Chloride Flush 3 ML SYRINGE IVFLUSH ×2 (09:01→16:11)
[2022-11-17] MEDS: Benzonatate 100 MG CAPSULE PO ×3 (09:01→20:26)
--- NOTE | 2022-11-17 11:47 | MHC.CM.PN ---
PT REPORTS SHE LIVES ALONE AND IS INDEPENDENT WITH CARE SHE HAS NO SERVICES AND USES A CANE TO AMBULATE SHE SAYS HER SON IS HER HCP-COPY REQUESTED PCP: DR DEGROOT IMM DELIVERED CURRENT DC PLAN IS HOME WITH NO SERVICES PT WILL ARRANGE TRANSPORT
--- NOTE | 2022-11-17 12:25 | P.PNIM_ITS ---
Subjective Subjective Date of Service: 11/17/22 Interval History: Pneumonia, cough, uncontrolled hypertension. Review of Systems Patient still feeling generalized weak, denies any fever or chills Having short of breath with minimal exertion, aggressive cough. Physical Exam Vital Signs: Vital Signs: Last Vital Signs Temp 98.2 F 11/17/22 08:00 Pulse 73 11/17/22 08:00 Resp 18 11/17/22 08:00 BP 170/60 H 11/17/22 08:00 Pulse Ox 97 11/17/22 08:00 O2 Del Method Room Air 11/17/22 08:00 BMI result Body Mass Index 29.5 Appearance: Alert.? Oriented X3.? cvs: rrr, [id number] . res:? Air entry fair, slightly diminished on the right side.? No wheezing or rales abd: no rebound or guarding ,nt, bs present. ext pulses present , no cyanosis . neuro: axo3 , nonfocal Objective Data Active Medications Acetaminophen (Acetaminophen 325 Mg Tablet) 975 mg PO Q8H [facility] Last Admin: 11/17/22 08:50 Dose: 975 mg Documented By: LUDA Amlodipine Besylate (Amlodipine Besylate 5 Mg Tablet) 5 mg PO DAILY [facility] Last Admin: 11/17/22 08:50 Dose: 5 mg Documented By: LUDA Benzonatate (Benzonatate 100 Mg Capsule) 100 mg PO TID [facility] Last Admin: 11/17/22 09:01 Dose: 100 mg Documented By: LUDA Capsaicin (Capsaicin 0.025% Cream 60 Gm Tube) 1 appl TOPICAL TID PRN; Protocol PRN Reason: Pain, Mild (Pain Scale 1-3) Carvedilol (Carvedilol 12.5 Mg Tablet) 12.5 mg PO BID [facility]; Protocol Last Admin: 11/17/22 08:50 Dose: 12.5 mg Documented By: LUDA Celecoxib (Celecoxib 200 Mg Capsule) 200 mg PO DAILY [facility] Last Admin: 11/17/22 08:49 Dose: 200 mg Documented By: LUDA Docusate Sodium (Docusate Sodium 100 Mg Capsule) 100 mg PO DAILY PRN PRN Reason: Constipation Last Admin: 11/16/22 08:12 Dose: 100 mg Documented By: COTEMA Enoxaparin Sodium (Enoxaparin Sodium 40 Mg/0.4 Ml Syringe) 40 mg SUBCUT Q24H [facility] Last Admin: 11/17/22 08:49 Dose: 40 mg Documented By: LUDA Erythromycin (Erythromycin Base 0.5% Oph Oin 1 Gm Tube) 1 cm EYE-BOTH BID [facility] Last Admin: 11/17/22 08:51 Dose: 1 cm Documented By: LUDA Escitalopram Oxalate (Escitalopram Oxalate 20 Mg Tablet) 20 mg PO DAILY [facility] Last Admin: 11/17/22 08:50 Dose: 20 mg Documented By: LUDA Guaifenesin (Guaifenesin 100 Mg/5 Ml Liquid) 10 ml PO Q4H [facility] Last Admin: 11/17/22 12:00 Dose: 10 ml Documented By: JOSE FRANCISCO Guaifenesin/Dextromethorphan (Guaifenesin Dm 100/10/5 Ml 5 Ml Syrup) 5 ml PO Q4H PRN PRN Reason: couh Last Admin: 11/16/22 12:04 Dose: 5 ml Documented By: COTNORI Hydralazine HCl (Hydralazine Hcl 10 Mg Tablet) 10 mg PO BID [facility]; Protocol Last Admin: 11/17/22 08:50 Dose: 10 mg Documented By: LUDA Hydroxyzine HCl (Hydroxyzine Hcl 10 Mg Tablet) 10 mg PO BID [facility] Last Admin: 11/17/22 08:49 Dose: 10 mg Documented By: LUDA Azithromycin 500 mg/ Sodium (Chloride) 250 mls @ 125 mls/hr IV Q24H [facility] Last Infusion: 11/17/22 00:57 Dose: 0 mls/hr Documented By: JOSE Ceftriaxone Sodium 1 gm/ (Sodium Chloride) 50 mls @ 100 mls/hr IV Q24H [facility] Last Infusion: 11/16/22 22:56 Dose: 0 mls/hr Documented By: JOSE Lidocaine (Lidocaine 4 % Patch Adh..Patch) 1 patch TRANSDERMA DAILY [facility]; Protocol Last Admin: 11/17/22 08:51 Dose: 1 patch Documented By: LUDA Lisinopril (Lisinopril 20 Mg Tablet) 20 mg PO DAILY [facility] Last Admin: 11/17/22 08:50 Dose: 20 mg Documented By: LUDA Loratadine (Loratadine 10 Mg Tablet) 10 mg PO DAILY [facility] Mirabegron (Mirabegron 50 Mg Tab.Er.24h) 50 mg PO DAILY [facility] Last Admin: 11/17/22 08:49 Dose: 50 mg Documented By: LUDA Omeprazole (Omeprazole 40 Mg Capsule.Dr) 40 mg PO DAILY [facility] Last Admin: 11/17/22 08:50 Dose: 40 mg Documented By: LUDA Ondansetron HCl (Ondansetron Hcl 4 Mg/2 Ml Vial) 4 mg IVPUSH Q8H PRN PRN Reason: Nausea and Vomiting Pharmacy Consult (Consult Rx Perform Med Rec) 1 each MISCELLANE ONCE PRN PRN Reason: Consult order Pravastatin Sodium (Pravastatin Sodium 40 Mg Tablet) 40 mg PO DAILY [facility] Last Admin: 11/17/22 08:50 Dose: 40 mg Documented By: LUDA Sodium Chloride (0.9 % Sodium Chloride Flush 3 Ml Syringe) 3 ml IVFLUSH QSHIFT [facility] Last Admin: 11/17/22 09:01 Dose: 3 ml Documented By: LUDA Tramadol HCl (Tramadol Hcl 50 Mg Tablet) 50 mg PO QID PRN PRN Reason: Pain, Severe (Pain Scale 7-10) Last Admin: 11/16/22 02:45 Dose: 50 mg Documented By: JOSE Trazodone HCl (Trazodone Hcl 50 Mg Tablet) 50 mg PO BEDTIME [facility] Last Admin: 11/16/22 21:49 Dose: 50 mg Documented By: JOSE Labs 11/16/22 05:29 11/16/22 05:29 Microbiology Microbiology Results: Microbiology 11/15/22 23:52 Blood Culture - Preliminary Blood - Venous No growth after 24 hours. 11/15/22 23:52 Blood Culture - Preliminary Blood - Venous No growth after 24 hours. Assessment and Plan (1) Pneumonia: Status: Acute (2) Weakness: Status: Acute Plan 82-year-old female past medical history of hypertension presents the hospital with complaints cough, shortness of breath found to have pneumonia community-acquired pneumonia: curb-1, sob with minimum excersion ,generalised weak. no leukocytosis, chest x-ray : possible pna,blood cultures pending treat with IV antibiotics-ceftriaxone /azithomycin (start date 6/2/23), added loratidine ,cough medication,recommend repeating x-ray in 4-6 weeks to evaluate for the hilum density generalized weakness- secondary to acute illness physical therapy consulted chronic hyponatremia- sodium 133 no need for further fluids,follow BMP as needed. knee pain- thougtht to likely secondary to osteoarthritis knee x-ray negative, uric acid normal recommend outpatient [id number] ,capscian cream/licocaine patch,tramadol prn PT eval. hypertension uncontrolled- adjusted coreg ,comtine ROMERO & amlodipine. neurogenic bladder- continue myrbetriq DVT prophylaxis: Lovenox ongoing inpatient need : pneumonia -not improving -need IV antibiotics as well as evaluation by Physical therapy for significant weakness unable to take care of herself at home . Time Spent With Patient Time: Total time managing care of this patient today ____ minutes. Quality Stroke Does the patient have a stroke diagnosis?: No VTE Prior VTE?: No VTE Risk Level:: Medical - moderate - high VTE Device Contraindication: Treatment Not Indicated VTE Drug Contraindication: N/A - Med Ordered
[2022-11-17] MEDS: amLODIPine Besylate 2.5 MG TABLET PO (13:29)
[2022-11-17] MEDS: guaiFEN/Codeine SF 200/20/10ML 10 ML LIQUID PO (13:36)
[2022-11-17 16:00] VITALS: BP 120/58; TEMP 36.9; O2SAT 97
[2022-11-17 16:15] VITALS: BP 132/50
[2022-11-17 19:21] VITALS: BP 164/50; PULSE 71; RESP 17; TEMP 36.6; O2SAT 98
[2022-11-17] MEDS: traZODone HCL 50 MG TABLET PO (20:26)
[2022-11-17] MEDS: cefTRIAXone sodium 1 GM in 0.9 % Sodium Chloride 50 ML IV (20:51)
[2022-11-17] MEDS: Azithromycin 500 MG in 0.9 % Sodium Chloride 250 ML 125 MG IV (20:53)
[2022-11-17] MEDS: Throat Lozenge, Medicated LOZENGE 1 LOZENGE MUCOUS MEM (22:05)
[2022-11-17] MEDS: traMADoL HCL 50 MG TABLET PO (22:07)
[2022-11-18] MEDS: guaiFENesin 100 MG/5 ML LIQUID 10 ML PO ×3 (02:03→13:12)
[2022-11-18 04:00] VITALS: BP 165/69; PULSE 76; RESP 18; TEMP 36.3; O2SAT 96
[2022-11-18 07:45] VITALS: BP 162/82; PULSE 82; RESP 18; TEMP 37.1; O2SAT 95
[2022-11-18] MEDS: 0.9 % Sodium Chloride Flush 3 ML SYRINGE IVFLUSH (08:10)
[2022-11-18] MEDS: Acetaminophen 325 MG TABLET 975 MG PO (08:11)
[2022-11-18] MEDS: Loratadine 10 MG TABLET PO (08:11)
[2022-11-18] MEDS: Benzonatate 100 MG CAPSULE PO (08:11)
[2022-11-18] MEDS: lisinopriL 20 MG TABLET PO (08:11)
[2022-11-18] MEDS: amLODIPine Besylate 5 MG TABLET PO (08:11)
[2022-11-18] MEDS: Erythromycin Base 0.5% Oph Oin 1 GM TUBE 1 CM EYE-BOTH (08:11)
[2022-11-18] MEDS: Mirabegron 50 MG TAB.ER.24H PO (08:12)
[2022-11-18] MEDS: Omeprazole 40 MG CAPSULE.DR PO (08:12)
[2022-11-18] MEDS: hydrALAZINE HCl 10 MG TABLET PO (08:12)
[2022-11-18] MEDS: Celecoxib 200 MG CAPSULE PO (08:13)
[2022-11-18] MEDS: Pravastatin Sodium 40 MG TABLET PO (08:13)
[2022-11-18] MEDS: Lidocaine 4 % Patch ADH..PATCH 1 PATCH TRANSDERMA (08:13)
[2022-11-18] MEDS: carvediloL 12.5 MG TABLET PO (08:13)
[2022-11-18] MEDS: Escitalopram Oxalate 20 MG TABLET PO (08:13)
[2022-11-18] MEDS: hydrOXYzine HCL 10 MG TABLET PO (08:13)
[2022-11-18] MEDS: Enoxaparin Sodium 40 MG/0.4 ML SYRINGE SUBCUT (08:14)
--- NOTE | 2022-11-18 11:01 | MHC.CM.PN ---
Addendum entered by Jesusita Li RN 11/18/22 11:40: PATIENT ASKS TO SPEAK WITH T/W AGAIN SHE NOW WANTS [facility] REFERRAL. REFERRAL PLACED. Original Note: PATIENT REPORTS THAT SHE DOES NOT WANT ANY P.T. SERVICES IN THE HOME SHE STATES THAT SHE VISITS THE [facility] 4X/WEEK. IF SHE FEELS THE NEED FOR ANY HOME HEALTH AID OR CLEANING SERVICES, SHE CAN ARRANGE THROUGH THE [facility] FRIEND WILL PROVIDE TRANSPORT HOME.
--- NOTE | 2022-11-18 13:15 | MHC.CM.PN ---
[facility] RESPONDED BY [facility]. AGENCY LIKELY TO ACCEPT FOR SERVICES. PATIENT AWARE.
--- NOTE | 2022-11-18 13:26 | W.MHC.F2F ---
Service Date Service Date: 11/18/22 Encounter Date of encounter: 11/18/22 Encounter: PNEUMONIA, GENERALIZED WEAKNESS Reasons for Services Signs and symptoms assessed: Monitor for shortness of breath or cough or any fever. Reason for alf: medication management, medication treatment and teach disease management Reason for physical therapy: home safety and mobility, therapeutic exercises, restore joint function, gait/transfer training, assess need for DME, ADL training, energy conservation and other MD Overseeing Care: Sailaja Shah Homebound: Leaving the home is medically contraindicated at this time without the asist of a device and/or another person due th the listed conditions above and below. Reason homebound: weakness related to hospital stay Homebound supporting statement: Patient has multiple comorbidities came to the hospital because pneumonia, generalized weak post hospitalization stay need help to go to appointments, PT. Certification: Based on the above findings, I certify that this patient is confined to the home and needs intermittent alf care, physical therapy and/or speech therapy, or continues to need occupational therapy. The patient is under my care, and I have initiated the establishment of the plan of care. The patient will be followed by a physician who will periodically review the plan of care. Time Spent With Patient Time: Total time managing care of this patient today ____ minutes.
--- NOTE | 2022-11-18 13:26 | MHC.CM.PN ---
[facility] IS OFFERING RN AND P.T. SKILLS [facility] AND PATIENT MADE AWARE SOC IS FridayNOVEMBER 21, BUT THEY WILL VISIT HER EARLIER IF ABLE
--- NOTE | 2022-11-18 13:33 | MHC.CM.PN ---
PCP IS DR ZELALEM DEGROOT OF [facility]. QUICK TASK UPDATE SENT TO CM OFFICE
--- NOTE | 2022-11-26 12:22 | PM.DS ---
DS: Providers Provider Date of Service: 11/18/22 Date of admission: 11/16/22 06:30 Date of discharge: 11/18/22 Primary care physician: Sailaja Shah MD Attending physician on discharge: Brown Ortiz Discharging clinician: Brown Ortiz DS: Diagnosis Discharge Diagnosis (1) Pneumonia: Status: Acute (2) Weakness: Status: Acute DS: Summary Hospital Course Hospital Course: Date of service and discharge: 11/18/22. 82-year-old female with past medical history of hypertension, depression, neurogenic bladder, chronic pain presents the hospital with complaints of cough for the past 1 week.? Patient reports that her cough has worsened, she has also had shortness of breath, and worsening weakness to the point that now she has difficulty ambulating from her chair to the kitchen.? Patient lives alone, is usually completely independent.? Patient denies any fever no chills, no chest pain, no abdominal pain, no nausea or vomiting, no diarrhea constipation, no urinary symptoms, no lower extremity edema.? Patient is complaining of left knee pain and swelling, status chronic arthritis On arrival to the ED patient hemodynamically stable no significant abnormal vitals Labs are significant for WBC count of 14.7, hemoglobin of 11.1, hematocrit 33.2, sodium of 129 which is chronically in the same range, BNP of 168, COVID-19, and influenza negative X-ray of the knee shows central density associated with right hilum which can represent infiltrate, mass cannot be ruled out, recommended repeat imaging after resolution of pneumonia and for 6 weeks. Hospital course: Patient came to the hospital because of cough, shortness of breath found to have pneumonia-patient was started on IV antibiotics, blood cultures sent. In addition patient has hyponatremia possibly chronic. Knee pain seems to be improved with Tylenol, lidocaine patch. Patient pneumonia brown seems to be improving with antibiotics, blood culture negative at 48 hour, leukocytosis improving , no fevers. Hyponatremia improved with p.o. intake. plan: Patient will go home with 7 days of p.o. antibiotics Ceftin and azithromycin. Monitor BMP out patiently with PCP. htn -adjusted coreg. Follow-up with PCP outpatient for further management, consider repeating chest imaging to see resolution of pneumonia in 3-4 weeks time outpatient. Assessment plan coordination time spent 50 minute. Time Spent with Patient Time attestation: Total time managing care of this patient today ____ minutes. Discharge coordination time: Greater than 30 minutes Quality: Safe Use of Opioids Does Pt have an Active Cancer Diagnosis on the Problem List?: No Quality: Stroke Does the patient have a stroke diagnosis?: No Physical Exam Vital Signs: Vital Signs: Last Vital Signs Temp 98.7 F 11/18/22 07:45 Pulse 82 11/18/22 07:45 Resp 18 11/18/22 07:45 BP 162/82 H 11/18/22 07:45 Pulse Ox 95 11/18/22 07:45 O2 Del Method Room Air 11/18/22 07:45 BMI result Body Mass Index 29.5 Appearance: Alert.? Oriented X3.? cvs: rrr, [id number] . res:? Air entry fair, no rales or wheezing abd: no rebound or guarding ,nt, bs present. ext pulses present , no cyanosis . neuro: axo3 , nonfocal DS: Data Imaging Chest x-ray: Radiologist's impression: ITS Impressions Chest X-Ray 11/15/22 22:14 IMPRESSION: Central density associated with the right hilum could represent central atelectasis or infiltrate. Hilar increase would need to be considered here. Central lesion cannot be excluded. I would in the least recommend a follow-up film after treatment to assess for resolution 4-6 weeks. Knee X-Ray 11/16/22 00:15 IMPRESSION: Degenerative changes and probable small effusion. No acute fracture or dislocation. If further evaluation is warranted recommend MR Discharge Plan Discharge Anticipated Discharge Date/Time: 11/18/22 11:40 Patient Disposition: Home Health Service Discharge Diagnosis: Pneumonia, hyponatremia Referrals: [facility] [Outside] - 1 Week (START OF CARE IS FOR Friday11/21/22. IF AGENCY CAN VISIT EARLIER, THEY WILL CALL AND ARRANGE WITH YOU) Sailaja Shah MD [Primary Care Provider] - 1 Week () Discharge Medications: New cefuroxime axetil 500 mg tablet 500 mg PO BID Qty: 14 0RF azithromycin 500 mg tablet 500 mg PO DAILY 5 Days Qty: 5 0RF loratadine 10 mg Tablet 10 mg PO DAILY Qty: 30 0RF codeine-guaifenesin 10-100 mg/5 mL Liquid 10 ml PO Q4H PRN (Reason: Cough) Qty: 118 0RF acetaminophen 325 mg Tablet 975 mg PO Q8H PRN (Reason: pain) Qty: 14 0RF docusate sodium 100 mg Capsule 100 mg PO DAILY PRN (Reason: Constipation) Qty: 30 0RF lidocaine [Lidocaine Pain Relief] 4 % Adhesive Patch,Medicated 1 patch transdermal DAILY Qty: 1 0RF Protocol: Apply to: Apply to: affected area capsaicin 0.025 % Cream 1 appl topical TID PRN (Reason: Pain, Mild (Pain Scale 1-3)) Qty: 1 0RF Protocol: Apply to: Apply to: pain Continued celecoxib 200 mg capsule 200 mg PO DAILY hydralazine 10 mg tablet 10 mg PO BID citalopram 40 mg tablet 40 mg PO DAILY trazodone 50 mg tablet 50 mg PO BEDTIME pravastatin 40 mg tablet 40 mg PO DAILY omeprazole 40 mg capsule,delayed release(DR/EC) 40 mg PO DAILY tramadol 50 mg tablet 50 mg PO QID PRN (Reason: pain) amlodipine-benazepril 5-20 mg capsule 1 cap PO DAILY benzonatate 100 mg capsule 100 mg PO TID hydroxyzine HCl 10 mg tablet 10 mg PO BID Nizoral A-D 1 % shampoo 1 appl topical Q3D Rx Instructions: TOPICALLY EVERY THIRD DAY OTC Myrbetriq 50 mg tablet extended release 24 hr 50 mg PO DAILY Changed carvedilol 6.25 mg tablet 12.5 mg PO BID Qty: 60 0RF Discharge Orders: Discharge Order (Routine); Ordered 11/18/22 Ordered By: Brown Ortiz Diet: Advance to usual diet Activity on Discharge: As tolerated Stand Alone Forms: Patient Portal Discharge page Care Plan Goals: Patient came to the hospital because of cough, shortness of breath found to have pneumonia-patient was started on IV antibiotics, blood cultures sent. In addition patient has hyponatremia possibly chronic. Knee pain seems to be improved with Tylenol, lidocaine patch. Patient pneumonia brown seems to be improving with antibiotics, blood culture negative at 48 hour, leukocytosis improving , no fevers. Hyponatremia improved with p.o. intake. Health Concerns: Patient will go home with 7 days of p.o. antibiotics Ceftin and azithromycin. Monitor BMP out patiently with PCP Follow-up with PCP outpatient for further management, consider repeating chest imaging to see resolution of pneumonia in 3-4 weeks time outpatient. Plan of Treatment: As above. Assessment: As above. Patient Instructions: Pneumonia (DC) Discharge Date/Time: 11/18/22 15:17
== END 2022-11-18 15:17 | disposition home health service (06) | DRG 194 ==
LOC: HO.ED 23:27 → HO.EDOVER 23:36 → HO.S3 11-16 00:38
PROVIDERS: Admitting Provider Internal Medicine; Emergency Provider Emergency Medicine; PCP Internal Medicine; Visit Provider Internal Medicine
DX: J18.9 Pneumonia, unspecified organism (principal); E87.1 Hypo-osmolality and hyponatremia; I10 Essential (primary) hypertension; M17.12 Unilateral primary osteoarthritis, left knee; N31.9 Neuromuscular dysfunction of bladder, unspecified; Z20.822 Contact with and (suspected) exposure to COVID-19; Z79.899 Other long term (current) drug therapy
CPT/HCPCS: 36415; 71045; 73560; 80048; 81003; 82803; 83605; 83880; 84145; 84484; 84550; 85025; 85610; 87040; 87502; 87635; 93005; 97162; 99285; J0456; J0696; J1650

== ENCOUNTER 2023-03-10 11:02 | Outpatient (AMB) | payer MEDICARE, OTHER, SELFPAY ==
--- NOTE | 2023-03-10 11:24 | AM.OFFWIN_ITS ---
Intake Vital Signs 03/10/23 11:26 Height 5 ft 1 in Weight 132 lb BMI 24.9 BP 146/58 H Blood Pressure Location Rt brachial Position Sitting Pulse 70 Pulse Source Pulse Oximeter Temp 98.0 F Temp Source Temporal Artery Scan Pulse Oximetry (%) 97 Intake Visit Reasons: EP, Left lower arm wound not healing Intake Note: pt is here for c/o left lower arm wound not healing over 2 weeks Patient Tobacco Use Status: Never used Tobacco Allergies aspirin Allergy (Unknown, Verified 03/10/23 12:17) Hives Medication List - Last Reconciled 03/10/23 by Pepe Riojas MD amlodipine-benazepril 5-20 mg 1 cap PO DAILY benzonatate 100 mg PO TID capsaicin 0.025% 1 appl See Protocol topical TID PRN carvedilol 12.5 mg (2 x 6.25 mg) PO BID celecoxib 200 mg PO DAILY citalopram 40 mg PO DAILY codeine-guaifenesin 10-100 mg/5 mL 10 mL PO Q4H PRN docusate sodium 100 mg PO DAILY PRN hydralazine 10 mg PO BID hydroxyzine HCl 10 mg PO BID ketoconazole 1% (Nizoral A-D) 1 appl topical Q3D lidocaine 4% (Lidocaine Pain Relief) 1 patch See Protocol transdermal DAILY loratadine 10 mg PO DAILY mirabegron ER (Myrbetriq) 50 mg PO DAILY omeprazole 40 mg PO DAILY pravastatin 40 mg PO DAILY silver sulfadiazine 1% (Silvadene) 1 appl topical BID tramadol 50 mg PO QID PRN trazodone 50 mg PO BEDTIME Do you need a note to return to daycare/school/sports/work: Yes HPI EP, Left lower arm wound not healing HPI Details 82-year-old female presents to the [facility] for a sick visit. Patient scraped her forearm 2 weeks ago. As she has thin skin, a superficial layer of the skin peeled out. It was bleeding which has subsequently stopped. Patient believes the wound is not healing fast enough. Reports no pain. [facility] Medical History (Updated 03/10/23 @ 12:20 by Pepe Riojas MD) Neurogenic bladder Arthritis Chronic pain Hypertension Surgical History Previous back surgery Social History Alcohol intake: never Patient Tobacco Use Status: Never used Tobacco service: No Current occupational status: retired Physical Exam Vital Signs: Last Vital Signs Temp 98.0 F 03/10/23 11:26 Pulse 70 03/10/23 11:26 BP 146/58 H 03/10/23 11:26 Pulse Ox 97 03/10/23 11:26 BMI result Body Mass Index 24.9 Skin Other: Left forearm: Open area of wound. Healthy granulation tissue. Surrounding edges of the wound are not swollen or edematous. No tenderness. Full range of motion at the elbow joint and wrist joint. Assessment & Plan Assessment & Plan (1) Open wound of left forearm: Code(s): S51.802A - Unspecified open wound of left forearm, initial encounter Qualifiers: Encounter type: initial encounter Qualified Code(s): S51.802A - Unspeci fied open wound of left forearm, initial encounter Plan: Reassurance. Silvadene ointment applied. Keep the area dry and the wound open. Medications: New silver sulfadiazine 1% (Silvadene) apply a 1.5 mm thickness 1 appl topical BID 25 grams 0RF Coding Level of Care Code Est Pt Level 3 (06109) Diagnoses Open wound of left forearm, initial encounter S51.802A Encounter type: initial encounter
[2023-03-10 11:26] VITALS: BP 146/58; PULSE 70; TEMP 36.7; O2SAT 97; BMI 24.9
== END 2023-03-10 12:31 | disposition home or self-care (01) ==
PROVIDERS: PCP Internal Medicine; Visit Provider Internal Medicine
DX: S51.802A Unspecified open wound of left forearm, initial encounter (principal)
CPT/HCPCS: 99213

== ENCOUNTER 2024-03-12 09:51 | Outpatient (AMB) | payer MEDICARE, OTHER, SELFPAY ==
--- NOTE | 2024-03-12 10:57 | AM.OFFWIN_ITS ---
Intake Vital Signs 03/12/24 10:58 Height 5 ft 1 in Weight 136 lb BMI 25.7 BP 110/64 Blood Pressure Location Rt brachial Position Sitting Pulse 68 Pulse Source Pulse Oximeter Pulse Oximetry (%) 98 Oxygen Delivery Method Room Air Intake Visit Reasons: EP-rt ankle pain Intake Note: Patient here because she had a fall about 10 days agp and has a wound with redness around it on right ankle that does not seem to get better. Patient Tobacco Use Status: Never used Tobacco Allergies aspirin Allergy (Unknown, Verified 03/12/24 10:59) Hives Do you need a note to return to daycare/school/sports/work: No HPI HPI Comments History of Present Illness Details This is an 83-year-old female who presented to the walk-in clinic complaining of right ankle pain. Patient states she fell about 10 days ago and scraped her right charles on the porch step. Patient states this was a mechanical fall in which she tripped on 1 step causing her to fall forward. She denies any lightheadedness/dizziness or chest pain/shortness of breath prior to the fall. She denies any head trauma or loss of consciousness. She states she sustained a wound to her right charles, which she has been cleaning with soap and water low the wound is not healing and she started to develop pain, swelling, and erythema of the right leg. She denies any fevers or chills. She reports some mild right ankle pain and somewhat right leg pain. Unrelated, patient is also complaining of an occasionally dry and occasionally productive cough. She denies any shortness of breath. She denies any fevers or chills. She denies any chest pain. She denies any other viral URI symptoms including nasal congestion/rhinorrhea, sore throat, fatigue, or weakness. [facility]LY [facility] Medical History (Updated 03/18/23 @ 00:03 by Loly Rodriguez) Neurogenic bladder Arthritis Chronic pain Hypertension Surgical History Previous back surgery Social History Alcohol intake: never Patient Tobacco Use Status: Never used Tobacco service: No Current occupational status: retired Review of Systems Const All systems reviewed & are unremarkable except as noted in HPI and below Reports no additional complaints Eyes Reports no additional complaints ENT Reports no additional complaints Card Reports no additional complaints Resp Reports no additional complaints GI Reports no additional complaints Reports no additional complaints Musc Reports no additional complaints Skin/Breast Reports system reviewed and no additional complaints, except as documented Neuro Reports no additional complaints Psych Reports no additional complaints Endo Reports no additional complaints Jorge/Lymph Reports no additional complaints Aller/Immun Reports no additional complaints Physical Exam Vital Signs: Last Vital Signs Pulse 68 03/12/24 10:58 BP 110/64 03/12/24 10:58 Pulse Ox 98 03/12/24 10:58 Oxygen Delivery Method Room Air 03/12/24 10:58 BMI result Body Mass Index 25.7 Const Other: Vital signs reviewed. Constitutional: Non-toxic appearing. No acute distress. Well-developed and well-nourished. HEENT: Normocephalic and atraumatic. Skin: There are 2 circular to the anterior right charles with overlying granulation tissue. There is surrounding erythema measuring approximately 9 x 6 cm, which is tender and hot to the touch without fluctuance or induration. Neck: Full and painless range of motion. No cervical lymphadenopathy. Cardio: Regular rate and rhythm. No murmurs, gallops, or rubs. No lower extremity edema. No JVD. Pulmonary: No respiratory distress. No accessory muscle usage. Clear to auscultation bilaterally without wheezing, crackles, or rhonchi. Gastrointestinal: Soft, nontender, and nondistended in all 4 quadrants. Musculoskeletal: There is swelling of the right lower extremity extending from the right ankle up to the right calf. She has tenderness to palpation of the right anterior charles as well as some mild tenderness to palpation of the right lateral/medial malleolus. There is also some tenderness of the right calf. She has full and painless range of motion of the right ankle. No swelling or tenderness to palpation of the right knee. Neuro: Alert and oriented x4. Cranial nerves 2-12 grossly intact. No focal deficits appreciated. Psych: Normal mood and affect. Results Reviewed Results Reviewed: Patient's xray results were reviewed. She has some mild soft tissue edema of the right lower extremity without bony erosion or fracture/dislocation. Her ultrasound was negative for DVT. These results were discussed with the patient in the office prior to her discharge home. Assessment & Plan Assessment & Plan (1) Fall (on) (from) other stairs and steps, initial encounter: Code(s): W10.8XXA - Fall (on) (from) other stairs and steps, initial encounter (2) Wound of right lower extremity: Code(s): S81.801A - Unspecified open wound, right lower leg, initial encounter Qualifiers: Encounter type: initial encounter Qualified Code(s): S81.801A - Unspecified open wound, right lower leg, initial encounter (3) Cellulitis of right lower extremity: Code(s): L03.115 - Cellulitis of right lower limb (4) Cough in adult: Code(s): R05.9 - Cough, unspecified Plan This is an 83-year-old female who presented to the walk-in clinic complaining of a wound, pain, swelling, and erythema of her right lower extremity following a fall that occurred 10 days ago. On physical examination, there are 2 circular wounds to the anterior right charles with overlying granulation tissue with surrounding erythema. She has swelling and tenderness to palpation of the right anterior charles, right calf, and right ankle. Differential diagnoses include fracture versus sprain/strain versus cellulitis versus DVT. Check x-ray of the right tibia/fibula in the right ankle to evaluate for fracture versus deep tissue infection. Check ultrasound venous duplex of the right lower extremity to evaluate for DVT given pain and swelling and recent trauma. Patient sent home on p.o. cephalexin 500 mg 4 times daily x7 days. Patient's wounds were cleansed and wrapped prior to discharge home. She was instructed on how to properly clean and wrap wounds. Patient was instructed to follow-up here in here or proceed directly to the emergency room if she were to develop any development of fevers/chills, any worsening erythema/swelling, or purulent drainage. Patient verbalized understanding and is agreeable with the plan. Patient also complained of an occasional dry and occasionally productive cough for the past 4-5 days. Her lungs are clear to auscultation bilaterally. She denies any fevers or chills or shortness of breath. COVID/flu/RSV. The patient likely has a viral URI. COVID/FLU/RSV sent. Patient presenting with signs and symptoms most consistent with acute respiratory tract infection. Recommended symptomatic management including rest, increased fluids, and over the counter cough suppressants/decongestants. Patient advised to follow up here or go to the emergency room for worsening/persistent symptoms. Patient verbalized understanding and is agreeable with the plan. Orders: Orders XR ankle RT 2V Today M25.571 - Pain in right ankle and joints of right foot US venous duplex LE RT Today M79.89 - Other specified soft tissue disorders XR tibia fibula RT 2V Today M79.604 - Pain in right leg SARS-CoV2/FLU/RSV Today R09.89 - Other specified symptoms and signs involving the circulatory and respiratory systems Medications: New cephalexin 500 mg PO QID 28 caps 0RF 7 days Coding Level of Care Code Est Pt Level 3 (32998) Diagnoses Fall (on) (from) other stairs and steps, initial encounter W10.8XXA Wound of right lower extremity, initial encounter S81.801A Encounter type: initial encounter Cellulitis of right lower extremity L03.115 Cough in adult R05.9
[2024-03-12 10:58] VITALS: BP 110/64; PULSE 68; O2SAT 98; BMI 25.7
== END 2024-03-12 15:27 | disposition home or self-care (01) ==
PROVIDERS: PCP Internal Medicine; Visit Provider Physician Assistant Medical
DX: S81.801A Unspecified open wound, right lower leg, initial encounter (principal); W10.8XXA Fall (on) (from) other stairs and steps, initial encounter; L03.115 Cellulitis of right lower limb; R05.9 Cough, unspecified

== ENCOUNTER → 2024-03-12 09:51 | Outpatient (BNVA) | payer MEDICARE, OTHER, SELFPAY | PROVIDERS: PCP Internal Medicine ==

== ENCOUNTER 2024-03-12 11:42 | Outpatient (REF) | payer MEDICARE, OTHER, SELFPAY ==
--- NOTE | ~2024-03-12 | XR_ITS ---
EXAMINATION: XR ANKLE, RIGHT CLINICAL INFORMATION: Right ankle swelling COMPARISON: None available. TECHNIQUE: AP, lateral, and mortise views of the right ankle. FINDINGS: No fracture. Alignment is anatomic. No erosions. Joint spaces are maintained. Generalized soft tissue edema seen through the distal calf, ankle and foot. Arterial calcinosis is seen within the vessels of the distal calf. XR/XR ankle RT 2V IMPRESSION: No acute osseous process. Soft tissue edema. Electronically signed by: Tyler Perez MD 03/12/2024 01:24 PM EDT RP
--- NOTE | ~2024-03-12 | US_ITS ---
EXAMINATION: US TRIPLEX LOWER EXTREMITY, RIGHT CLINICAL INFORMATION: Right lower extremity swelling, pain COMPARISON: None available. TECHNIQUE: Color-flow triplex imaging with spectral analysis and compression Doppler were performed on the right lower extremity. FINDINGS: Respiratory variation, normal compression and augmented flow are noted throughout the right lower extremity. The visualized common femoral vein, superficial femoral vein, profunda femoral vein, popliteal vein and midcalf peroneal and posterior tibial venous segments show no evidence of deep venous thrombosis. There is no Diamond's cyst. US/US venous duplex LE RT IMPRESSION: No evidence of deep venous thrombosis involving the right lower extremity. Electronically signed by: Tyler Perez MD 03/12/2024 01:23 PM EDT
--- NOTE | ~2024-03-12 | XR_ITS ---
EXAMINATION: XR TIBIA AND FIBULA, RIGHT CLINICAL INFORMATION: Right leg pain and swelling COMPARISON: None available. TECHNIQUE: AP and lateral views of the right tibia and fibula were obtained. FINDINGS: Status post right knee total arthroplasty. Surgical components are well-positioned without evidence of complication. Soft tissue edema is seen within the calf involving the distal two thirds. Osseous structures are otherwise intact XR/XR tibia fibula RT 2V IMPRESSION: Soft tissue edema. No acute osseous process. Electronically signed by: Tyler Perez MD 03/12/2024 01:25 PM EDT RP
[2024-03-12 18:08] LABS: Influenza A PCR NEGATIVE (Negative); Influenza B PCR NEGATIVE (Negative); Resp Syncy Virus RNA Qual PCR NEGATIVE (Negative); SARS COV2 PCR INHOUSE NEGATIVE (Negative)
== END 2024-03-12 11:43 | disposition home or self-care (01) ==
LOC: HO.HMGCX 11:42
PROVIDERS: PCP Internal Medicine; Visit Provider Physician Assistant Medical
DX: M79.89 Other specified soft tissue disorders (principal); M25.571 Pain in right ankle and joints of right foot; M79.604 Pain in right leg; R09.89 Other specified symptoms and signs involving the circulatory and respiratory systems
CPT/HCPCS: 0241U; 73590; 73600; 93971; 99212

== ENCOUNTER 2024-04-01 13:25 | Outpatient (REF) | payer MEDICARE, OTHER, SELFPAY ==
--- NOTE | ~2024-04-01 | MM_ITS ---
EXAMINATION: BONE DENSITOMETRY CLINICAL INDICATION: Osteopenia. COMPARISON: This is the patient's baseline examination. TECHNIQUE: Using a [employer] DXA System (software version: 13.1) manufactured by [employer], dual-energy x-ray absorptiometry was performed of the lumbar spine and left hip. The images are of good technical quality. Summary results are attached. FINDINGS: LEFT FEMUR, NECK: BMD 0.834 g/cm2, Z-score 1.0, T-score -1.5, osteopenia. LEFT FEMUR, TOTAL: BMD 0.857 g/cm2, Z-score 1.2, T-score -1.2, osteopenia. AP SPINE L1-L2 (excluding L3 and L4): The data of L1-L4 has been changed to exclude the L3 and L4 vertebral bodies, because metallic hardware at these levels may cause overestimation of lumbar spine density. BMD 1.049 g/cm2, Z-score 1.1, T-score -1.0, normal. IDENTIFIED RISK FACTORS: Early menopause, secondary osteoporosis, recurrent falls. HISTORY OF FRACTURE: None listed. MEDICATIONS: Calcium, vitamin D. MM/XR DEXA axial skeleton IMPRESSION: 1. DIAGNOSIS: Osteopenia based on the lowest T-score value of -1.5 in the femoral neck applying World Health Organization criteria. 2. 10-YEAR FRACTURE RISK PREDICTION, FRAX: Major osteoporotic fracture (clinical spine, forearm, hip or shoulder) 13.5%. Hip fracture 3.6%. 3. Treatment Recommendations: NOF guidelines recommend consideration for treatment in postmenopausal women and men age 50 and older presenting with the following: -A hip or vertebral (clinical or morphometric) fracture. -T-score less than or equal to -2.5 at the femoral neck or spine after appropriate evaluation to exclude secondary causes. -Low bone mass at the hip or spine and a 10-year fracture probability by FRAX of greater than or equal to 3% for hip fracture or greater than or equal to 20% for major osteoporotic fracture based on the [place] adapted WHO algorithm. 4. Other Recommendations: All treatment decisions require clinical judgment and consideration of individual patient factors, including patient preferences, comorbidities, previous drug use, risk factors not captured in the FRAX model (e.g. frailty, falls, vitamin D deficiency, increased bone turnover, interval significant decline in bone density) and possible under or overestimation of fracture risk by FRAX. Additional medical evaluation for secondary cause of low bone mineral density may be appropriate. FUTURE SCAN RECOMMENDATION: People with diagnosed cases of osteoporosis or at high risk for fracture should have regular bone mineral density tests. For patients eligible for Medicare, routine testing is allowed once every 2 years. The testing frequency can be increased to one year for patients who have rapidly progressing disease, those who are receiving or discontinuing medical therapy to restore bone mass, or have additional risk factors. Electronically signed by: Carlos Smiley MD 04/12/2024 08:07 AM EDT RP
== END 2024-04-01 13:26 | disposition home or self-care (01) ==
LOC: HO.MAMMO 13:25
PROVIDERS: Visit Provider Internal Medicine Rheumatology
DX: Z13.820 Encounter for screening for osteoporosis (principal); M85.89 Other specified disorders of bone density and structure, multiple sites
CPT/HCPCS: 77080

== ENCOUNTER 2024-11-30 12:03 | Outpatient (AMB) | payer MEDICARE, OTHER, SELFPAY ==
[2024-11-30 12:05] VITALS: BP 124/68; PULSE 74; TEMP 36.6; O2SAT 96; BMI 24.6
--- NOTE | 2024-11-30 12:05 | MHC.OFFWIV ---
Intake Vital Signs 11/30/24 12:05 Height 5 ft 1 in Weight 130 lb BMI 24.6 BP 124/68 Blood Pressure Location Lt brachial Position Sitting Pulse 74 Pulse Source Pulse Oximeter Temp 97.8 F Temp Source Oral Pulse Oximetry (%) 96 Oxygen Delivery Method Room Air Intake Visit Reasons: EP-cough, chest/sinus congestion Intake Note: Pt presents to the office today for c/o cough,chest and sinus congestion x3 weeks. Patient Tobacco Use Status: Never used Tobacco Allergies aspirin Allergy (Unknown, Verified 11/30/24 12:05) Hives HPI HPI Comments History of Present Illness Details Patient is an 84-year-old female with a past medical history of hypertension, arthritis and neurogenic bladder complaining of 3 weeks of a cough, chest congestion and constant runny nose. Denies Fevers, ear pain, fatigue or sinus pain. Denies wheezing or shortness of breath. She denies sick contacts Has been taking tylenol with no relief Went to a wedding 3 weeks ago and has been sick since. denies hx of asthma or COPD PFSH Medical History (Updated 11/30/24 @ 12:21 by Ariela Gross PA-C) Neurogenic bladder Arthritis Chronic pain Hypertension Surgical History Previous back surgery Social History Alcohol intake: never Patient Tobacco Use Status: Never used Tobacco service: No Current occupational status: retired Review of Systems Const All systems reviewed & are unremarkable except as noted in HPI and below Physical Exam Vital Signs: Last Vital Signs Temp 97.8 F 11/30/24 12:05 Pulse 74 11/30/24 12:05 BP 124/68 11/30/24 12:05 Pulse Ox 96 11/30/24 12:05 Oxygen Delivery Method Room Air 11/30/24 12:05 BMI result Body Mass Index 24.6 Const General: cooperative, healthy appearing, comfortable and no acute distress Orientation/consciousness: patient oriented x3 Limitations: no limitations HEENT Head: Yes normal to inspection Ears: hearing grossly normal bilaterally, external ears normal and TM's normal bilaterally General nose exam: Normal external nose present, Normal nares present and No nasal discharge present Face and sinus: Yes normal facial exam and Yes sinuses nontender Mouth: Normal oral and palatal mucosa present and moist mucous membranes Throat: Yes tonsils normal, Yes uvula midline and Yes posterior oropharynx abnormal (Erythema) Eyes General: appearance normal, both eyes and all related structures Neck Neck: Yes normal visual inspection Resp Effort & Inspection: normal respiratory effort, able to speak in complete sentences, Actively coughing, no respiratory distress, not tachypneic, no tripod positioning and no use of accessory muscles Auscultation: clear to auscultation bilaterally Cardio Rate: regular rate Rhythm: regular rhythm Heart sounds: normal S1 and S2 Skin General skin exam: no rashes or lesions noted Neuro General: patient oriented x3 Extrem General: Yes normal to inspection and Yes no clubbing, cyanosis or edema Assessment & Plan Assessment & Plan (1) Lower respiratory infection (e.g., bronchitis, pneumonia, pneumonitis, pulmonitis): Code(s): J22 - Unspecified acute lower respiratory infection Plan: Vital signs are stable, patient well-appearing and physical exam unremarkable. No indication for a chest x-ray. Due to the amount of time she has been sick, I will treat her for bacterial respiratory infection with Augmentin. Recommended she use Tessalon Perles at night so she can stop coughing and get some rest. Also recommended she check with her pharmacist to see which allergy pill would not be contraindicated with her medications. As there is likely an allergy component. Medications: New amoxicillin-pot clavulanate 875-125 mg 1 tab PO Q12H 14 tabs 0RF benzonatate 200 mg PO BEDTIME PRN 10 caps 0RF cough Coding Level of Care Code New Pt Level 4 (04765) Diagnoses Lower respiratory infection (e.g., bronchitis, pneumonia, pneumonitis, pulmonitis) J22
--- OUTSIDE RECORDS SUMMARY | 2024-11-30 13:43 | XMS_ITS | Patient Health Record ---
Author Organization [facility] Address [address] [place] [address] Care Team Providers Care Asp Net Developer Name Role Phone Sailaja Shah MD Primary Care Provider Ariadne Mendez Unavailable [phone] Allergies Allergen (clinical drug ingredient) Drug/Non Drug Allergy documented on EMR Reaction Allergy Type Onset Date Status aspirin Aspirin hives Drug Allergy Active erythromycin Erythromycin hives Drug Allergy A ctive Substance with sulfonamide structure and antibacterial mechanism of action (substance) Sulfa Antibiotics hives Drug Allergy Active Reason For Referral No Information Medications Medication SIG (Take, Route, Frequency, Duration) Notes Start Date End Date Status Celecoxib 200 MG 1 capsule with food Orally Once a day Not-Taking Citalopram Hydrobromide 40 MG 0.5 tablet Orally Once a day Active Omeprazole 40 MG 1 capsule 30 minutes before morning meal Orally Once a day Active Pravastatin Sodium 40 MG 1 tablet Orally Once a day Active hydrOXYzine HCl 10 MG 1 tablet as needed Orally Once a day Active Vitamin B12 Active traZODone HCl 50 MG 1 tablet at bedtime as needed Orally Once a day Active Vitamin D3 Active Myrbetriq 50 MG 1 tablet Orally Once a day Active PreserVision AREDS A ctive Benazepril HCl Activ e Multi Vitamin - 1 tablet Orally Once a day Active amLODIPine Benzoate Active Fish Oil 1000 MG 1 capsule Orally Three times a day Active Carvedilol 12.5 MG 1 tablet with food Orally Twice a day Active Spironolactone 25 MG/5ML as directed Orally Active traMADol HCl 50 MG 1 tablet as needed Orally Once a day 4 a day Active traZODone HCl 50 MG 1 tablet at bedtime as needed Orally Once a day Active Social History Tobacco Use: Social History Observation Description Date Details (start date - stop date) Never Smoker NA - NA Alcohol Screen Question Answer Notes Did you have a drink containing alcohol in the p ast year? No Points 0 Interpretation Negative Tobacco use other than smoking: Question Answer Notes Are you an other tobacco user? 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 confirmed Vital Signs Height 5 ft 2 in in 08/31/2024 Weight 130 lbs 08/31/2024 BMI 23.77 kg/m2 08/31/2024 Encounters Encounter Location Date Provider Diagnosis [address] [address] 02/03/2024 Ariadne Perica Fungal infection of nail B35.1 ; Pain in right toe(s) M79.674 and Pain in left toe(s) M79.[address] [address] 05/04/2024 Ariadne Perica Onychomycosis B35.1 ; Pain in right toe(s) M79.674 and Pain in left toe(s) M79.[address] [address] 08/31/2024 Ariadne Perica Onychomycosis B35.1 ; Osteoarthritis of midtarsal joint of left foot M19.072 ; Pain in right toe(s) M79.674 ; Pain in left toe(s) M79.675 ; Pain in left foot M79.672 ; Pain in left ankle and joints of left foot M25.572 and Bursitis of left foot M77.52 Assessments Encounter Date Diagnosis (ICD Code) Assessment Notes Treatment Notes Treatment Clinical Notes Section Notes 02/03/2024 Pain in right toe(s) (ICD-10 - M79.674) 02/03/2024 Fungal infection of nail (ICD-10 - B35.1) 05/04/2024 Pain in right toe(s) (ICD-10 - M79.674) 05/04/2024 Onychomycosis (ICD-10 - B35.1) 08/31/2024 Onychomycosis (ICD-10 - B35.1) 08/31/2024 Osteoarthritis of midtarsal joint of left foot (ICD-10 - M19.072) 05/04/2024 Pain in left toe(s) (ICD-10 - M79.675) 02/03/2024 Pain in left toe(s) (ICD-10 - M79.675) 08/31/2024 Pain in right toe(s) (ICD-10 - M79.674) 08/31/2024 Pain in left toe(s) (ICD-10 - M79.675) 08/31/2024 Pain in left foot (ICD-10 - M79.672) 08/31/2024 Pain in left ankle and joints of left foot (ICD-10 - M25.572) 08/31/2024 Bursitis of left foot (ICD-10 - M77.52) Plan Of Treatment Next Appt Details Provider Name:Ariadne sunshine, 12/28/2024 11:30:00 AM, [address] [facility], [place], [address], Insurance Providers Payer Name Payer Address Payer Phone Subscriber Number Group Number Insured Name Patient Relationship to Insured Coverage Start Date Coverage End Date Medicare [employer] [address] [facility] [place] [address] [id number] [id number] Mitzi Abraham Self - patient is the insured [facility] [address] [place] [address] [id number] Mitzi Abraham Self - patient is the insured Medical (General) History Medical History History ICD Code Arthritis Measles Mumps Chicken pox Joint implants/screws Surgical History Surgery Date(Month/Year) knee replacement 2005 back surgery / Lumbar 2012 back surgery / Lumbar 2013 back surgery / Lumbar 2015
== END 2024-11-30 12:33 | disposition home or self-care (01) ==
PROVIDERS: PCP Internal Medicine; Visit Provider Physician Assistant
DX: J22 Unspecified acute lower respiratory infection (principal)

== ENCOUNTER → 2024-11-30 12:03 | Outpatient (BNVA) | payer MEDICARE, OTHER, SELFPAY | PROVIDERS: PCP Internal Medicine; Visit Provider Physician Assistant | DX: J22 Unspecified acute lower respiratory infection (principal) | CPT/HCPCS: 99202 ==

== ENCOUNTER 2025-05-30 13:05 | Inpatient (IN) | payer MEDICARE, OTHER, SELFPAY ==
--- OUTSIDE RECORDS SUMMARY | 2025-05-28 23:59 | XMS_ITS | Continuity of Care Document ---
Author Organization [facility] Address [address] [place] [address]- Care Team Providers Care Food And Beverage Controller Name Role Phone Alyssa ARORA, Sailaja Primary Care Physician Encounter [facility] Date(s): 04/28/25 - 05/28/25 [facility] [address] [place] [address]- Encounter Type: Triage Allergies, Adverse Reactions, Alerts Substance Criticality Severity Reaction Reaction Severity Status aspirin Active Immunizations Given and Recorded Vaccine Date Status Refusal Reason influenza virus vaccine, inactivated 04/05/24 Give n influenza virus vaccine, inactivated 03/07/23 Bud rded influenza virus vaccine, inactivated 04/14/22 Bud rded influenza virus vaccine, inactivated 03/16/21 Bud rded influenza virus vaccine, inactivated 02/22/21 Bud rded influenza virus vaccine, inactivated 1 03/27/18 Re corded influenza virus vaccine, inactivated 03/20/18 Bud rded influenza virus vaccine, inactivated 2 03/16/17 Re corded influenza virus vaccine, inactivated 03/26/16 Give n influenza virus vaccine, inactivated 3 03/06/15 Re corded influenza virus vaccine, inactivated 03/09/13 Give n influenza virus vaccine, inactivated 4 03/09/12 Gi asha influenza virus vaccine, inactivated 5 03/13/11 Gi asha influenza virus vaccine, inactivated 04/03/10 Give n RSV vaccine preF3, recombinant 04/30/23 Recorded SARS-CoV-2(COVID-19)mRNA-LNP vac([id number]) 03/17/23 Recorded [id number] 12y+ bivalent booster vax 03/20/22 Recorded zoster vaccine, inactivated 02/23/22 Recorded zoster vaccine, inactivated 08/21/21 Recorded SARS-CoV-2 mRNA ([id number]) vax 12/06/21 Recorded SARS-CoV-2 (COVID-19) mRNA BNT-162b2 vac 03/26/21 Recorded SARS-CoV-2 (COVID-19) mRNA BNT-162b2 vac 08/16/20 Recorded SARS-CoV-2 (COVID-19) mRNA BNT-162b2 vac 07/26/20 Recorded Influenza Virus Vaccine (oldterm) 6 03/21/20 Recor ded Influenza Virus Vaccine (oldterm) 03/19/19 Recorde d Influenza Virus Vaccine (oldterm) 7 04/05/08 Given Influenza Virus Vaccine (oldterm) 8 03/31/07 Given Influenza Virus Vaccine (oldterm) 04/18/06 Given Influenza Virus Vaccine (oldterm) 03/18/05 Given tetanus-diphtheria toxoids (Td) 09/01/18 Recorded tetanus-diphtheria toxoids (Td) 08/17/13 Given tetanus-diphtheria toxoids (Td) 10/17/03 Given pneumococcal 13-valent vaccine 05/30/15 Given influ virus vac, H1N1, inactive(oldterm) 07/12/09 Given FluLaval (oldterm) 9 03/03/09 Given Zoster Vaccine Live 10 10/13/07 Given Pneumococcal Vaccine (oldterm) 05/18/04 Given 1Result Comment: [04/27/2018] [facility] 2Result Comment: [03/19/2017] done at [facility] form received HIGH DOSE 3Result Comment: [03/08/2015] high dose given at [facility] form received 4Admin Note: MANUFACTURE BIOMEDICAL VIS SHEET GIVEN (01/08/2011) GIVEN W/O INCIDENT 5Admin Note: given w/o incident 6Result Comment: [facility] 7Admin Note: [employer] 8Admin Note: [employer] 9Admin Note: given w/o incident 10Admin Note: vaccine mixed w/sterile diluent lot #[id number], exp 10/23, inj given w/out incident Medications amlodipine-benazepril 5 mg-40 mg oral capsule 1 capsule, By Mouth, Daily, # 90 capsule, 0 Refills, Maintenance, 05/05/25 4:35:00 PM EST, [facility]/pharmacy #[id number], 90, 1 capsule By Mouth Daily, 154.9, cm, 09/19/25 11:20:00 EDT, Height, 63.4, kg, 03/04/25 11:20:00 EDT, Dry Weight Start Date: 05/05/25 Status: Ordered Medication Dispense Status: Completed Quantity: 90.0 Unit: capsule Total Allowed Fills: 1 Fills Dispensed: 0 carvedilol 12.5 mg oral tablet 1, tablet, By Mouth, 2 times a day, # 180 tablet, Refills 1, Maintenance, 02/03/25 7:28:00 PM EDT, Route to Pharmacy Electronically, [id number], 154.9, cm, 12/13/24 11:38:00 EDT, Height, 62.3, kg, 12/13/24 11:38:00 EDT, Dry Weight Start Date: 02/03/25 Status: Ordered Medication Dispense Status: Completed Quantity: 180.0 Unit: tablet Total Allowed Fills: 1 Fills Dispensed: 0 celecoxib 200 mg oral capsule 0 Refills, 07/02/19 11:06:00 AM EST Start Date: 07/02/19 Status: Ordered Medication Dispense Status: Completed Total Allowed Fills: 1 Fills Dispensed: 0 Centrum Silver By Mouth, Daily, 0 Refills, Maintenance, 12/04/21 10:51:00 AM EDT, Partial fill upon patient requestif the prescription is for a schedule II opioid drug. Start Date: 12/04/21 Status: Ordered Medication Dispense Status: Completed Total Allowed Fills: 1 Fills Dispensed: 0 citalopram 40 mg oral tablet 1 tablet, By Mouth, Daily, # 90 tablet, 1 Refills, Maintenance, 04/09/25 8:18:00 PM EDT, [id number], 154.9, cm, 03/04/25 11:20:00 EDT, Height, 63.4, kg, 03/04/25 11:20:00 EDT, Dry Weight Start Date: 04/09/25 Status: Ordered Medication Dispense Status: Completed Quantity: 90.0 Unit: tablet Total Allowed Fills: 1 Fills Dispensed: 0 Fish Oil By Mouth, 0 Refills, Maintenance, 12/04/21 10:55:00 AM EDT, Partial fill upon patient request if theprescription is for a schedule II opioid drug. Start Date: 12/04/21 Status: Ordered Medication Dispense Status: Completed Total Allowed Fills: 1 Fills Dispensed: 0 hydrOXYzine hydrochloride 10 mg oral tablet 1 tablet, By Mouth, 2 times a day, # 180 tablet, 3 Refills, Maintenance, 02/09/24 2:48:00 PM EDT, [id number], 154.9, cm, 12/30/23 12:42:00 EDT, Height, 64.5, kg, 04/11/22 14:19:00 EDT, Dry Weight Start Date: 02/09/24 Status: Ordered Medication Dispense Status: Completed Quantity: 180.0 Unit: tablet Total Allowed Fills: 1 Fills Dispensed: 0 Myrbetriq 50 mg oral tablet, extended release 1 tablet, By Mouth, Daily, DO NOT CRUSH OR CHEW. PLEASE MAKE APPT TO RECIEVE FURTHER REFILLS, # 90 tablet, 3 Refills, Maintenance, 07/20/24 10:50:00 AM EST, [facility]/pharmacy #[id number], 154.9, cm, 04/05/24 12:48:00 EDT, Height, 62.7, kg, 07/20/24 10:15:00 EST, Dry Weight Start Date: 07/20/24 Status: Ordered Medication Dispense Status: Completed Quantity: 90.0 Unit: tablet Total Allowed Fills: 4 Fills Dispensed: 0 NIZORAL A-D 1% SHAMPOO NIZORAL A-D 1% SHAMPOO, See Instructions, # 125 mL, 0 Refills, Maintenance, TOPICALLY EVERY THIRD DAY OTC, 05/05/23 3:58:00 PM EST, 154.9, cm, 04/22/23 13:05:00 EST, Height, 64.5, kg, 04/11/22 14:19:00 EDT, Dry Weight Start Date: 05/05/23 Status: Ordered Medication Dispense Status: Completed Quantity: 125.0 Unit: mL Total Allowed Fills: 1 Fills Dispensed: 0 omeprazole 40 mg oral enteric coated capsule 1 capsule, By Mouth, Daily, # 90 capsule, 1 Refills, Maintenance, 12/29/24 5:32:00 AM EDT, [id number], 154.9, cm, 12/13/24 11:38:00 EDT, Height, 62.3, kg, 12/13/24 11:38:00 EDT, Dry Weight Start Date: 12/29/24 Status: Ordered Medication Dispense Status: Completed Quantity: 90.0 Unit: capsule Total Allowed Fills: 1 Fills Dispensed: 0 pravastatin 40 mg oral tablet 1 tablet, By Mouth, Daily, # 90 tablet, 1 Refills, Maintenance, 12/24/24 9:45:00 AM EDT, [facility]/pharmacy #[id number], 154.9, cm, 12/13/24 11:38:00 EDT, Height, 62.3, kg, 12/13/24 11:38:00 EDT, Dry Weight Start Date: 12/24/24 Status: Ordered Medication Dispense Status: Completed Quantity: 90.0 Unit: tablet Total Allowed Fills: 2 Fills Dispensed: 0 PreserVision AREDS 2 oral capsule 1 capsule, By Mouth, Daily, 0 Refills, Maintenance, 12/24/18 3:02:31 PM EDT Start Date: 12/24/18 Status: Ordered Medication Dispense Status: Completed Total Allowed Fills: 1 Fills Dispensed: 0 spironolactone 25 mg oral tablet 1, tablet, By Mouth, Daily, # 90 tablet, Refills 1, Maintenance, 12/29/24 5:32:00 AM EDT, Route to Pharmacy Electronically, [id number], 154.9, cm, 12/13/24 11:38:00 EDT, Height, 62.3, kg, 12/13/24 11:38:00 EDT, Dry Weight Start Date: 12/29/24 Status: Ordered Medication Dispense Status: Completed Quantity: 90.0 Unit: tablet Total Allowed Fills: 1 Fills Dispensed: 0 Tramadol = 50 mg, By Mouth, Every 6 hours, 0 Refills, Maintenance, 01/04/16 11:48:04 AM EDT Start Date: 01/04/16 Status: Ordered Medication Dispense Status: Completed Total Allowed Fills: 1 Fills Dispensed: 0 traZODone 50 mg oral tablet 1, tablet, By Mouth, Daily at bedtime, # 90 tablet, Refills 1, Maintenance, 05/25/25 11:20:00 AM EST, Route to Pharmacy Electronically, [id number], 154.9, cm, 03/04/25 11:20:00 EDT, Height, 63.4, kg, 03/04/25 11:20:00 EDT, Dry Weight Start Date: 05/25/25 Status: Ordered Medication Dispense Status: Completed Quantity: 90.0 Unit: tablet Total Allowed Fills: 1 Fills Dispensed: 0 Vitamin D3 2000 intl units oral capsule 1 capsule = 2,000 International_Units, By Mouth, Daily, 0 Refills, Maintenance, 11/26/10 3:00:26 PM EDT Start Date: 11/26/10 Status: Ordered Medication Dispense Status: Completed Total Allowed Fills: 1 Fills Dispensed: 0 Problem List Condition Confirmation Course Effective Dates Status Health Status Informant 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 Active Anxiety depression Confirmed Active Carpal tunnel syndrome Confirmed Active Common migraine Confirmed Active Hypercholesterolemia Confirmed 09/08/12 Active HLD (hyperlipidemia) Confirmed Active Hypertension Confirmed Active IBS - Irritable bowel syndrome Confirmed Active Mixed incontinence Confirmed Active Major depression Confirmed Active Nocturia Confirmed Active Ocular migraine Confirmed Active Osteoarthritis Confirmed Active Spinal stenosis s/p L3-L5 LUMBER DECOMPRESSION at [facility] 1 Confirmed Active Synovial cyst of lumbar spine 2 Confirmed Active Varicose vein Confirmed Active 1s/p L3-4 Laminectomy and spinal fusion 2L3-4 s/p l34 hemilaminectomy, partial facetectomy, repair of incidental duratomy Social History Social History Type Response Sexual Sexually involved in last 6 months: No. Smoking Status Never smoker entered on: 02/21/14 Sex Sex Representation Female (finding) Patient Care team information Care Team Personnel Name: Sailaja Shah MD Position: [facility] Physician - Primary Care Member Role: PCP Address: [address] [place] [address] [facility] [address] Telecom: Care Team Related Persons Name: MALINI COOPER Insurance Providers Guarantor name: ABDON COOPER Health Plan Information #: 1 Payer: MEDICARE B Payer Identifier: PRIMITIVO Member Number: [id number] Group Number: [id number] Subscriber Identifier: PRIMITIVO Relationship to Subscriber: self Coverage Type: NA Coverage Verification Date: NA Telecom: NA Address: NA Health Plan Information #: 2 [facility] Payer Identifier: PRIMITIVO Member Number: [id number] Group Number: [id number] Subscriber Identifier: NA Relationship to Subscriber: self Coverage Type: Commercial Indemnity Coverage Verification Date: NA Telecom: NA Address: NA
--- NOTE | ~2025-05-30 | XR_ITS ---
EXAMINATION: XR HIP, RIGHT CLINICAL INFORMATION: pain, injury COMPARISON: None available. TECHNIQUE: AP pelvis, AP supine, and frog-leg lateral views of the right hip. FINDINGS: There is severe axial joint space narrowing in the right hip with visible chondrocalcinosis involving lateral articular cartilage of the femoral head. There are minute marginal osteophytes involving fovea, femoral head, and acetabular roof. Left hip demonstrates subtle axial joint space narrowing and chondrocalcinosis lateral to the hip joint. There is also chondrocalcinosis in the pubic symphysis joint. Again seen is a fracture on the lateral view involving the distal right femur. XR/XR hip RT w PEL1V IMPRESSION: Nondisplaced fracture of the distal right femur. 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 Mild left hip osteoarthritis also likely secondary to CPPD arthropathy. Electronically signed by: Maurizio Donis MD 05/30/2025 02:52 PM EST
--- NOTE | ~2025-05-30 | XR_ITS ---
EXAMINATION: XR CHEST CLINICAL INFORMATION: pre-op COMPARISON: None available. TECHNIQUE: Frontal view of the chest was obtained. FINDINGS: The cardiac, hilar, and mediastinal contours are normal. Aortic mural calcifications. The lungs are clear bilaterally. No pneumothorax or effusion. No focal osseous or soft tissue abnormality. XR/XR chest 1V IMPRESSION: No active pulmonary disease. Electronically signed by: Brandon Spears MD 05/30/2025 02:48 PM EST
--- NOTE | ~2025-05-30 | XR_ITS ---
EXAMINATION: XR FEMUR, RIGHT CLINICAL INFORMATION: pain, injury COMPARISON: None available. TECHNIQUE: AP and lateral views of the right femur were obtained. FINDINGS: The right hip is mostly imaged. There is moderate to severe axial joint space narrowing, minimal marginal sites, and chondrocalcinosis. Total knee arthroplasty has been performed. There is an osseous fragment along the deep proximal portion of patella, likely chronic. On lateral view, there is subtle lucency obliquely extending from the anterior distal femur, just cephalad to the femoral prosthesis, and exiting posteriorly at the junction of the mid third and distal third femoral diaphysis. Fracture line is not clearly evident on the frontal view. XR/XR femur RT 2V IMPRESSION: There is a nondisplaced oblique fracture through the distal femoral diaphysis is visible in the lateral view. It extends from the anterior distal cortex, just deep to the superior pole patella, and exits posterior mid third to distal third diaphysis of the femur. Electronically signed by: Maurizio Donis MD 05/30/2025 02:49 PM MATIAS
--- NOTE | ~2025-05-30 | XR_ITS ---
EXAMINATION: XR KNEE, RIGHT CLINICAL INFORMATION: pain, injury, right femur fracture COMPARISON: None available. TECHNIQUE: AP and lateral with bilateral oblique views of the right knee. FINDINGS: Total knee arthroplasty has been performed. No visible loosening of hardware is identified. There is a fracture line extending deep to the cortex just cephalad to the femoral component in the anterior distal femur. Fracture line courses obliquely in a cephalad direction extending the posterior cortex of the junction of middle third and distal third femur. On the frontal x-ray, fracture line extends from the midline of the femoral metaphysis toward the lateral side. There is a joint effusion. XR/XR knee RT 4V IMPRESSION: There is an acute fracture of the distal right femur that extends to the anterior superior margin of the femoral component of the total knee arthroplasty. Fracture traverses in a cephalad direction exiting the posterior femoral cortex of the junction of middle third and distal third diaphysis. There is also lucency in the posterior cortex in the middle third diaphysis of the femur extending to junction with the proximal third diaphysis femur. This could represent extension of the fracture into the proximal femur versus a vascular channel. Knee joint effusion. Electronically signed by: Maurizio Donis MD 05/30/2025 03:01 PM [facility]
--- NOTE | ~2025-05-30 | FL_ITS ---
EXAMINATION: XR FLUOROSCOPY WITH IMAGES CLINICAL INFORMATION: Fracture right femur COMPARISON: None available. TECHNIQUE: DAP: 11.1 mGy Images: 4 FINDINGS: Fluoroscopy provided for internal fixation of a femoral fracture. No radiologist present. FL/FL guidance in OR IMPRESSION: Fluoroscopy provided for procedure. See surgical report for details. Electronically signed by: Alfred Leonard MD 06/01/2025 07:41 AM EST
--- NOTE | ~2025-05-30 | CT_ITS ---
EXAMINATION: CT ABDOMEN AND PELVIS WITHOUT CONTRAST CLINICAL INFORMATION: Diarrhea and abdominal pain. COMPARISON: No prior CT available. TECHNIQUE: Multidetector volumetric imaging was performed from the superior aspect of the liver through the pubic symphysis. Sagittal and coronal reformatted images were obtained on the technologist's workstation. This CT examination was performed using dose optimization techniques as appropriate, variously including the following: *Automated exposure control *Adjustment of mA and/or kV according to patient size (this includes techniques or standardized protocols for targeted exams where dose is matched to indication/reason for exam; i.e. extremities or head) *Use of iterative reconstruction technique FINDINGS: LUNG BASES: Lung bases are clear. There is a calcified granuloma in the medial right lower lobe. Heart size is normal. There are heavy coronary calcifications present, and there is heavy mitral annular calcification present. No effusions are present. LIVER, GALLBLADDER, AND BILIARY TREE: The unenhanced liver is normal in size, shape, and attenuation. No focal hepatic lesion or biliary ductal dilatation is present. The gallbladder is somewhat contracted but grossly has a normal appearance. There is trace perihepatic ascites in the subhepatic recess. PANCREAS: Unenhanced pancreas is grossly unremarkable. SPLEEN: Unenhanced spleen is normal. There is a small volume of perisplenic ascites. ADRENAL GLANDS: Mild hyperplasia of the left. The right appears normal. KIDNEYS AND URETERS: The kidneys are normal in size, shape, and attenuation. No hydronephrosis, hydroureter, or calculi seen. No perinephric stranding. BLADDER: Well-distended and normal in appearance. GASTROINTESTINAL TRACT: Beginning in the mid transverse colon, there is wall thickening and inflammation of the colon, extending to involve the splenic flexure, descending colon, most proximal sigmoid colon. Findings are consistent with segmental colitis. There is mild to moderate diverticulosis of the sigmoid colon. There is no rectal abnormality. There is minimal dilation of small bowel with some fluid-filled loops, most likely on the basis of ileus given the process in the left colon. No small bowel obstruction is apparent. There is no evidence of appendicitis. A mobile cecum is incidentally noted. PERITONEUM/RETROPERITONEUM: There is no free intraperitoneal air. There is small volume intraperitoneal ascites most notable in the pelvic recesses. ABDOMINAL WALL: No significant hernia or mass. Minimum anasarca of the flank regions is present. There is probable pelvic floor weakness. There has been prior lumbar surgery. LYMPH NODES: No pathologic lymphadenopathy is present. VASCULAR: There is no aneurysm. There is moderate to heavy calcification of the aorta and iliac arteries. PELVIC VISCERA: The senescent uterus and adnexa are unremarkable. OSSEOUS STRUCTURES: There is no suspicious lytic or blastic bone lesion. There are spinal degenerative changes. And there are moderate hip joint degenerative changes present with chondrocalcinosis bilaterally. Extensive postop changes are present in the lower lumbar spine with fusion of L3-S1 with transpedicular screws and posterior connecting rods. The hardware creates significant streak artifact, obscuring locally adjacent structures. There appear to have been associated laminectomies of L3-S1. CT/CT abdomen pelvis wo IV con IMPRESSION: 1. Segmental colitis involving the mid transverse colon, splenic flexure, descending colon and proximal sigmoid colon. This could be infectious, inflammatory, or possibly ischemic in etiology given distribution of involvement. 2. There is small volume intraperitoneal ascites. 3. There are heavy vascular calcifications present, including coronary calcifications. 4. There are ancillary findings as discussed in the body of the report. Electronically signed by: Brandon Spears MD 06/03/2025 11:19 AM [facility]
--- NOTE | ~2025-05-30 | XR_ITS ---
EXAMINATION: XR KNEE, RIGHT CLINICAL INFORMATION: post op COMPARISON: X-ray 05/30/2025. Fluoroscopy 05/31/2025 TECHNIQUE: Two views of the right knee. FINDINGS: Postsurgical changes from internal fixation of a distal femoral fracture. Hardware is intact. Fracture alignment is anatomic. Redemonstrated total knee arthroplasty, with expected positioning and alignment of the arthroplastic components. There are skin kody along the lateral and anterior aspect of the knee. Mild soft tissue swelling. No significant joint effusion is seen. XR/XR knee RT 2V IMPRESSION: Postsurgical changes from internal fixation of a distal femoral fracture. Electronically signed by: Alfred Leonard MD 06/02/2025 11:32 AM [facility]
[2025-05-30 13:49] VITALS: BP 176/84; BP 198/81; PULSE 58; PULSE 68; RESP 16; TEMP 36.7; O2SAT 98; BMI 27.3
[2025-05-30 14:51] VITALS: BP 211/84; PULSE 66; RESP 18; TEMP 37.1
[2025-05-30 14:54] LABS: MANUAL DIFF FLAG NO
[2025-05-30 14:56] LABS: Hematocrit 35.8 % (37.0-47.0); Hemoglobin 11.7 g/dl (12.0-16.0); Imm Gran Abs Auto 0.04 X10*3/uL (0.00-0.03); Imm Gran Pct Auto 0.3 % (0.0-0.4); Lymphocytes Absolute Auto 1.7 X10*3/uL (1.2-4.9); Mean Corpuscular HGB Conc 32.7 g/dl (31.0-35.0); Mean Corpuscular Hemoglobin 30.9 pg (27.0-33.0); Mean Corpuscular Volume 94.5 fL (80.0-98.0); NRBC Abs Auto 0.000 X10*3/uL (0.0-0.012); NRBC Pct Auto 0.0 /100WBC (0.0-0.2); Platelet Count 242 X10*3/uL (160-400); Red Blood Count 3.79 X10*6/uL (4.20-5.50); White Blood Count 11.6 X10*3/uL (4.8-10.8)
[2025-05-30 15:02] LABS: INTERNATIONAL NORM RATIO 1.0 (0.9-1.1); Prothrombin Time 12.6 SEC (11.2-13.5)
[2025-05-30 15:10] LABS: Alanine Aminotransferase 20 U/L (0-31); Albumin Level 4.7 g/dL (3.5-5.0); Alkaline Phosphatase 75 U/L (39-117); Anion Gap 12 (12-20); Aspartate Amino Transferase 28 U/L (5-31); Blood Urea Nitrogen 24 mg/dL (9-16); Calcium 10.2 mg/dL (8.4-10.2); Carbon Dioxide 26 mmol/L (22-29); Chloride 105 mmol/L (96-108); Creatinine Clr Calc Pharmacy 37.9; Estimated Glomerular Filt Rate 55; Potassium 5.1 mmol/L (3.3-5.1); Sodium 138 mmol/L (135-145); Total Protein 7.1 g/dL (6.5-8.0)
--- NOTE | 2025-05-30 16:06 | ED.FALL ---
HPI - Fall General Chief Complaint: Fall Stated Complaint: FALL/OUTSIDE,R KNEE PAIN/SWELLING,-THINNER,-HS Time Seen by Provider: 05/30/25 15:07 Source: patient, RN notes reviewed and old records reviewed Mode of arrival: EMS Limitations: no limitations History of Present Illness ED Provider: MARIA DEL ROSARIO Jackson HPI Narrative: 84-year-old female with medical history of osteoarthritis, hypertension, neurogenic bladder presents to the ED after a mechanical slip and fall on her garage stairs. Patient states she fell onto her R knee and leg and pushed her life alert for assistance as she could not get up or bear weight on the R leg due to severe pain. Patient states she did not hit her head or loose consciousness. Patient reports she did not experience lightheadedness, dizziness, syncope prior to the fall and simply tripped over the stairs. Patient denies chest pain, shortness of breath, abdominal pain, nausea, vomiting, dizziness, lightheadedness, headaches, visual changes, confusion, urinary symptoms Related Data Home Medications ?Medication ?Instructions ?Recorded ?Confirmed amlodipine 5 mg-benazepril 20 mg 1 cap PO DAILY 11/16/22 11/16/22 capsule citalopram 40 mg tablet 40 mg PO DAILY 11/16/22 11/16/22 hydralazine 10 mg tablet 10 mg PO BID 11/16/22 11/16/22 hydroxyzine HCl 10 mg tablet 10 mg PO BID 11/16/22 11/16/22 ketoconazole 1 % shampoo (Nizoral 1 appl topical Q3D 11/16/22 11/16/22 A-D) mirabegron 50 mg tablet,extended 50 mg PO DAILY 11/16/22 11/16/22 release 24 hr (Myrbetriq) omeprazole 40 mg capsule,delayed 40 mg PO DAILY 11/16/22 11/16/22 release pravastatin 40 mg tablet 40 mg PO DAILY 11/16/22 11/16/22 tramadol 50 mg tablet 50 mg PO QID PRN pain 11/16/22 11/16/22 trazodone 50 mg tablet 50 mg PO BEDTIME 11/16/22 11/16/22 spironolactone 25 mg tablet 25 mg PO DAILY 03/12/24 Previous Rx's ?Medication ?Instructions ?Recorded capsaicin 0.025 % topical cream 1 appl topical TID PRN Pain, Mild 11/18/22 (Pain Scale 1-3) #1 g carvedilol 6.25 mg tablet 12.5 mg (2 x 6.25 mg) PO BID #60 11/18/22 tabs docusate sodium 100 mg capsule 100 mg PO DAILY PRN Constipation 11/18/22 #30 caps lidocaine 4 % topical patch 1 patch transdermal DAILY #1 ea 11/18/22 (Lidocaine Pain Relief) loratadine 10 mg tablet 10 mg PO DAILY #30 tabs 11/18/22 silver sulfadiazine 1 % topical 1 appl topical BID #25 grams 03/10/23 cream (Silvadene) amoxicillin 875 mg-potassium 1 tab PO Q12H #14 tabs 11/30/24 clavulanate 125 mg tablet benzonatate 200 mg capsule 200 mg PO BEDTIME PRN cough #10 11/30/24 caps Allergies Allergy/AdvReac Type Severity Reaction Status Date / Time aspirin Allergy Unknown Hives Verified 05/30/25 13:52 Review of Systems Review of Systems: Yes all other systems are reviewed and are negative PMFSH Past Medical History Attestation statement: The following information was validated with the patient. Source: old records reviewed and nursing notes reviewed Medical History Neurogenic bladder Arthritis Chronic pain Hypertension Surgical History Previous back surgery Social History Social History Alcohol intake: never Patient Tobacco Use Status: Never used Tobacco Smoked in Last 30 Days: No Use of substances other than those prescribed or required for medical reasons: No Advance Directives: Yes Advance Directives Information Provided: Yes Advance Directives on File: No service: No Current occupational status: retired Physical Exam Vital Signs: Vital Signs: Last Vital Signs Temp 98.7 F 05/30/25 14:51 Pulse 66 05/30/25 14:51 Resp 18 05/30/25 14:51 BP 211/84 H 05/30/25 14:51 Pulse Ox 98 05/30/25 13:49 O2 Del Method Room Air 05/30/25 13:49 BMI result Body Mass Index 27.3 GENERAL APPEARANCE: ?AxOx4, generally well-appearing, no acute distress. HEENT: ?NC, AT. MMM. EOMI, clear conjunctiva, oropharynx clear. NECK: ?Supple without lymphadenopathy.? No stiffness or restricted ROM. HEART:? Normal rate and regular rhythm, normal S1/S2, no m/r/g LUNGS:? CTAB, moving air well. No crackles or wheezes are heard. ABDOMEN: ?Soft, nontender, nondistended BACK: No CVAT, no obvious deformity. EXTREMITIES: ?Without cyanosis, clubbing or edema. TTP of L superior knee into the distal femur, with moderate edema, no ecchymosis, erythema or warmth to the limb, the limb is neurovascularly intact, patient has pain with ROM NEUROLOGICAL: ?Grossly nonfocal. Alert and oriented, moving all 4 extremities. Observed to ambulate with normal gait. Skin: ?Warm and dry without any rash. Medical Decision Making Medical Decision Making MDM Narrative: 84-year-old female with medical history of osteoarthritis, hypertension, neurogenic bladder presents to the ED after a mechanical slip and fall on her garage stairs falling onto the R knee/leg and was unable to get up due to pain. Patient was sitting on her steps for about 10 minutes after she pushed her life alert. Denies dizziness, lightheadedness, syncope before her fall. VS on initial observation-BP 211/84, pulse rate of 66, respiratory rate of 18, afebrile with oral temp of 98.7?, O2 saturation 98% on room air. On physical exam patient is well-appearing, the head is normocephalic and atraumatic, EOMI, no tenderness of the cervical spine, no tenderness of the thoracic or lumbar spine, patient has tenderness to the right superior patella and of the distal femur, with mild edema, no ecchymosis, erythema or warmth to the area, reduced ROM due to pain Plan: Labs, XR R femur, XR R hip, XR R knee, XR chest Labs reveal leukocytosis of 11.6 with a left shift of 74.8, normocytic stable anemia with a hemoglobin of 11.7, and hematocrit of 35.8, no electrolyte abnormalities XR imaging reveals nondisplaced oblique fracture through the distal femoral diaphysis. Lab Data 05/30/25 14:45 05/30/25 14:45 Labs: Lab Results 05/30/25 Range/Units 14:45 WBC 11.6 H (4.8-10.8) X10*3/uL RBC 3.79 L D (4.20-5.50) X10*6/uL Hgb 11.7 L D (12.0-16.0) g/dl Hct 35.8 L D (37.0-47.0) % MCV 94.5 (80.0-98.0) fL MCH 30.9 (27.0-33.0) pg MCHC 32.7 (31.0-35.0) g/dl RDW 13.2 (11.0-16.0) % Plt Count 242 (160-400) X10*3/uL MPV 9.1 L (9.4-12.3) fL Immature Gran % (Auto) 0.3 (0.0-0.4) % Neut % (Auto) 74.8 H (45-73) % Lymph % (Auto) 14.8 L (20-40) % Guthrie % (Auto) 7.4 (2-11) % Eos % (Auto) 2.3 (0-4) % Baso % (Auto) 0.4 (0-2) % Lymph # (Auto) 1.7 (1.2-4.9) X10*3/uL Guthrie # (Auto) 0.9 (0.1-1.2) X10*3/uL Eos # (Auto) 0.3 (0.0-0.4) X10*3/uL Baso # (Auto) 0.1 (0.0-0.2) X10*3/uL Abs Immat Gran (auto) 0.04 H (0.00-0.03) X10*3/uL Absolute Neuts (auto) 8.7 H (2.0-8.3) x10*3/uL Absolute Nucleated RBC 0.000 (0.0-0.012) X10*3/uL Nucleated RBC % (auto) 0.0 (0.0-0.2) /100WBC PT 12.6 (11.2-13.5) SEC INR 1.0 (0.9-1.1) Sodium 138 (135-145) mmol/L Potassium 5.1 (3.3-5.1) mmol/L Chloride 105 (96-108) mmol/L Carbon Dioxide 26 (22-29) mmol/L Anion Gap 12 (12-20) BUN 24 H (9-16) mg/dL Creatinine 0.96 (0.5-1.4) mg/dL Estim Creat Clear Calc 37.9 Estimated GFR 55 Random Glucose 111 (60-115) mg/dL Calcium 10.2 D (8.4-10.2) mg/dL Total Bilirubin 0.5 (0.0-1.0) mg/dL AST 28 (5-31) U/L ALT 20 (0-31) U/L Alkaline Phosphatase 75 (39-117) U/L Total Protein 7.1 (6.5-8.0) g/dL Albumin 4.7 (3.5-5.0) g/dL Blood Type A Positive Antibody Screen NEGATIVE Discharge Plan Discharge Prescriptions: No Action hydralazine 10 mg tablet 10 mg PO BID citalopram 40 mg tablet 40 mg PO DAILY trazodone 50 mg tablet 50 mg PO BEDTIME pravastatin 40 mg tablet 40 mg PO DAILY omeprazole 40 mg capsule,delayed release(DR/EC) 40 mg PO DAILY tramadol 50 mg tablet 50 mg PO QID PRN (Reason: pain) amlodipine-benazepril 5-20 mg capsule 1 cap PO DAILY hydroxyzine HCl 10 mg tablet 10 mg PO BID Nizoral A-D 1 % shampoo 1 appl topical Q3D Rx Instructions: TOPICALLY EVERY THIRD DAY OTC Myrbetriq 50 mg tablet extended release 24 hr 50 mg PO DAILY loratadine 10 mg Tablet 10 mg PO DAILY Qty: 30 0RF carvedilol 6.25 mg tablet 12.5 mg PO BID Qty: 60 0RF docusate sodium 100 mg Capsule 100 mg PO DAILY PRN (Reason: Constipation) Qty: 30 0RF lidocaine [Lidocaine Pain Relief] 4 % Adhesive Patch,Medicated 1 patch transdermal DAILY Qty: 1 0RF Protocol: Apply to: Apply to: affected area capsaicin 0.025 % Cream 1 appl topical TID PRN (Reason: Pain, Mild (Pain Scale 1-3)) Qty: 1 0RF Protocol: Apply to: Apply to: pain silver sulfadiazine [Silvadene] 1 % cream 1 appl topical BID Qty: 25 0RF Rx Instructions: apply a 1.5 mm thickness spironolactone 25 mg tablet 25 mg PO DAILY amoxicillin-pot clavulanate 875-125 mg tablet 1 tab PO Q12H Qty: 14 0RF benzonatate 200 mg capsule 200 mg PO BEDTIME PRN (Reason: cough) Qty: 10 0RF Print Language: Pakistani
[2025-05-30 16:58] VITALS: BP 184/65; PULSE 68; RESP 18; TEMP 37.2; O2SAT 95
--- NOTE | 2025-05-30 17:17 | PM.IMHP ---
History of Present Illness Date of Service: 05/30/25 Chief Complaint: Fall 84-year-old female with medical history of osteoarthritis, hypertension, neurogenic bladder presented to the ED after a mechanical slip and fall on her garage stairs. She was about to open the door and she fell to the side. She denied LOC or head trauma. She was able to use her medical alert button and called EMS. Patient denied chest pain, shortness of breath, nausea, vomiting, diarrhea, recent illness, sick contacts. She reports that she lives alone and has family but none live in town. She is very independent and still drives. At this time she reports pain only with movement. Hip and pelvis x-ray shows nondisplaced fracture of the distal right femur. Blood pressure is noted to be elevated and probably pain is contributing to this. Plan will be to admit patient for further management and treatment of acute femur fracture. Review of Systems Review of Systems: Denies any recent fever chills or decrease in appetite respiratory denies any shortness of breath or cough cardiovascular denied chest pain gastrointestinal denies any dysphagia abdominal pain nausea vomiting or diarrhea genitourinary denies any dysuria frequency or hematuria musculoskeletal see HPI neuropsych denies any weakness or seizures all other systems reviewed are negative [facility] Medical History (Updated 05/30/25 @ 17:52 by Rula Can NP) Depression Neurogenic bladder Arthritis Chronic pain Hypertension Surgical History Previous back surgery Social History Alcohol intake: never Patient Tobacco Use Status: Never used Tobacco Smoked in Last 30 Days: No Use of substances other than those prescribed or required for medical reasons: No Advance Directives: Yes Advance Directives Information Provided: Yes Advance Directives on File: No Nutrition Risks: No Nutritional Risk service: No Current occupational status: retired Meds Allergies Allergy/AdvReac Type Severity Reaction Status Date / Time aspirin Allergy Unknown Hives Verified 05/30/25 13:52 Home Medications ?Medication ?Instructions ?Recorded ?Confirmed ?Last Taken ?Type amlodipine 5 mg-benazepril 20 mg 1 cap PO DAILY 11/16/22 11/16/22 Unknown History capsule citalopram 40 mg tablet 40 mg PO DAILY 11/16/22 11/16/22 Unknown History hydralazine 10 mg tablet 10 mg PO BID 11/16/22 11/16/22 Unknown History hydroxyzine HCl 10 mg tablet 10 mg PO BID 11/16/22 11/16/22 Unknown History ketoconazole 1 % shampoo (Nizoral 1 appl topical Q3D 11/16/22 11/16/22 Unknown History A-D) mirabegron 50 mg tablet,extended 50 mg PO DAILY 11/16/22 11/16/22 Unknown History release 24 hr (Myrbetriq) omeprazole 40 mg capsule,delayed 40 mg PO DAILY 11/16/22 11/16/22 Unknown History release pravastatin 40 mg tablet 40 mg PO DAILY 11/16/22 11/16/22 Unknown History tramadol 50 mg tablet 50 mg PO QID PRN pain 11/16/22 11/16/22 Unknown History trazodone 50 mg tablet 50 mg PO BEDTIME 11/16/22 11/16/22 Unknown History spironolactone 25 mg tablet 25 mg PO DAILY 03/12/24 Unknown History Physical Exam Vital Signs and Narrative: Vital Signs: Last Vital Signs Temp 98.9 F 05/30/25 16:58 Pulse 68 05/30/25 16:58 Resp 18 05/30/25 16:58 BP 184/65 H 05/30/25 16:58 Pulse Ox 95 05/30/25 16:58 O2 Del Method Room Air 05/30/25 16:58 BMI result Body Mass Index 27.3 Appearing in no acute distress head is normocephalic atraumatic eyes pupils are PERRLA sclera is anicteric mouth throat mucous membranes are intact and moist neck is supple no lymphadenopathy, no JVD noted lung sounds are clear to auscultation heart regular rate rhythm, clear S1, S2 positive bowel sounds, abdomen is soft, nontender neuro patient is alert x3, no focal deficits Results Labs 05/30/25 14:45 05/30/25 14:45 Labs: Laboratory Results - last 24 hr 05/30/25 14:45 MCV 94.5 MCH 30.9 MCHC 32.7 RDW 13.2 Plt Count 242 MPV 9.1 L Immature Gran % (Auto) 0.3 Neut % (Auto) 74.8 H Lymph % (Auto) 14.8 L [place] % (Auto) 7.4 Eos % (Auto) 2.3 Baso % (Auto) 0.4 Lymph # (Auto) 1.7 [place] # (Auto) 0.9 Eos # (Auto) 0.3 Baso # (Auto) 0.1 Abs Immat Gran (auto) 0.04 H Absolute Neuts (auto) 8.7 H Absolute Nucleated RBC 0.000 Nucleated RBC % (auto) 0.0 PT 12.6 INR 1.0 Anion Gap 12 Estim Creat Clear Calc 37.9 Estimated GFR 55 Random Glucose 111 Calcium 10.2 D Total Bilirubin 0.5 AST 28 ALT 20 Alkaline Phosphatase 75 Total Protein 7.1 Albumin 4.7 Blood Type A Positive Antibody Screen NEGATIVE Imaging Radiologist's Impressions: Impressions Chest X-Ray 05/30/25 14:30 IMPRESSION: No active pulmonary disease. Electronically signed by: Brandon Spears MD 05/30/2025 02:48 PM EST RP Knee X-Ray 05/30/25 14:30 IMPRESSION: There is an acute fracture of the distal right femur that extends to the anterior superior margin of the femoral component of the total knee arthroplasty. Fracture traverses in a cephalad direction exiting the posterior femoral cortex of the junction of middle third and distal third diaphysis. There is also lucency in the posterior cortex in the middle third diaphysis of the femur extending to junction with the proximal third diaphysis femur. This could represent extension of the fracture into the proximal femur versus a vascular channel. Knee joint effusion. Electronically signed by: Maurizio Donis MD 05/30/2025 03:01 PM EST RP Hip/Pelvis X-Ray 05/30/25 14:33 IMPRESSION: Nondisplaced fracture of the distal right femur. 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 Mild left hip osteoarthritis also likely secondary to CPPD arthropathy. Electronically signed by: Maurizio Donis MD 05/30/2025 02:52 PM EST RP Femur X-Ray 05/30/25 14:34 IMPRESSION: There is a nondisplaced oblique fracture through the distal femoral diaphysis is visible in the lateral view. It extends from the anterior distal cortex, just deep to the superior pole patella, and exits posterior mid third to distal third diaphysis of the femur. Electronically signed by: Maurizio Donis MD 05/30/2025 02:49 PM EST Assessment and Plan (1) Femur fracture: Status: Acute Plan 84 year old women admitted after a fall and sustaining a femur fracture Femur fracture secondary to Fall nondisplaced oblique fracture Orthopedic consultation Pain management bed rest NPO Fall no LOC PT consultation after surgical procedure Hypertension with elevated blood pressure readings Pain contributing continue home medications hydralazine IV for SBP >190 Neurogenic bladder continue Myrbetric GERD PPI HLD Hold statin Mental health continue home medications DVT prophylaxis with SCD boots Full code Quality Stroke Does the patient have a stroke diagnosis?: No VTE Prior VTE?: No VTE Risk Level:: Medical - moderate - high VTE Device Contraindication: N/A - Device Ordered VTE Drug Contraindication: Treatment Not Indicated
--- NOTE | 2025-05-30 19:23 | PHA.MEDREC ---
Pharmacy Consult ? Medication Reconciliation Pharmacy has completed the medication reconciliation. Spoke to patient at bedside, she had a written list but it was dated 2023. She said if it's not on the list, she isn't taking it. Also confirmed the 2 eyedrops, even though they weren't on the list.
[2025-05-30 19:32] VITALS: BP 157/50; PULSE 78; RESP 18; TEMP 36.4; O2SAT 96
[2025-05-30 22:02] VITALS: BP 149/60; PULSE 76; RESP 18; TEMP 37.3; O2SAT 97
--- OUTSIDE RECORDS SUMMARY | 2025-05-30 22:20 | XMS_ITS | Patient Health Record ---
[facility] Organization [facility] Address [address] [place] [address] Care Team Providers Care Care Management Associate Name Role Phone Sailaja Shah MD Primary Care Provider UnavailAriadne Todd Unavailable [phone] Allergies Allergen (clinical drug ingredient) Drug/Non Drug [...] Duration) Notes Start Date End Date Status Spironolactone 25 MG/5ML as directed Orally Active Celecoxib 200 MG 1 capsule with food Orally Once a day Not-Taking traZODone HCl 50 MG 1 tablet at bedtime as needed Orally Once a day Active Citalopram Hydrobromide 40 MG 0.5 tablet Orally Once a day Active Omeprazole 40 MG 1 capsule 30 minutes before morning meal Orally Once a day Active Carvedilol 12.5 MG 1 tablet with food Orally Twice a day Active Fish Oil 1000 MG 1 capsule Orally Three times a day Active traMADol HCl 50 MG 1 tablet as needed Orally Once a day 4 a day Active PreserVision AREDS A ctive amLODIPine Benzoate Active Multi Vitamin - 1 tablet Orally Once a day Active Pravastatin Sodium 40 MG 1 tablet Orally Once a day Active hydrOXYzine HCl 10 MG 1 tablet as needed Orally Once a day Active Vitamin B12 Active Myrbetriq 50 MG 1 tablet Orally Once a day Active Vitamin D3 Active Benazepril HCl Activ e Immunizations Vaccine Route Administration Date Status Comme nts Influenza Unknown 04/08/2024 Administered Influenza Unknown 02/14/2025 Administered Social History Tobacco Use: Social History Observation Description Date Details (start date - stop date) Never Smoker NA - NA Tobacco use other than smoking: Question Answer Notes Are you an other tobacco user? No Tobacco Control (Standard) Question Answer Notes Tobacco use: Nonsmoker Additional Findings: Tobacco non-user Current no nsmoker AUDIT-C (Standard) Question Answer Notes Did you have a drink containing alcohol in the p ast year? No Points 0 Interpretation Negative Problems Problem Type SNOMED Code ICD Code Onset Dates Problem Status W/U Status Risk Notes Problem Osteoarthritis of midtarsal joint of left foot (8285949148073286 ) Osteoarthritis of midtarsal joint of left foot (M19.072) Active confirmed Vital Signs Blood pressure diastolic 76 mm Hg 05/03/2025 Height 5 ft 2 in in 05/03/2025 Blood pressure systolic 120 mm Hg 05/03/2025 Weight 136 lbs 05/03/2025 BMI 24.87 kg/m2 05/03/2025 Encounters Encounter Location Date Provider Diagnosis [address] [address] 08/31/2024 Ariadne Perica Onychomycosis B35.1 ; Osteoarthritis of midtarsal joint of left foot M19.072 ; Pain in right toe(s) M79.674 ; Pain in left toe(s) M79.675 ; Pain in left foot M79.672 ; Pain in left ankle and joints of left foot M25.572 and Bursitis of left foot M77.[address] [address] 12/28/2024 Ariadne Perica Pain in right toe(s) M79.674 ; Onychomycosis B35.1 and Pain in left toe(s) M79.[address] [address] 05/03/2025 Ariadne Perica Pain in right toe(s) M79.674 ; Onychomycosis B35.1 and Pain in left toe(s) M79.[address] [address] 02/23/2025 Ariadne Perica Assessments Encounter Date Diagnosis (ICD Code) Assessment Notes Treatment Notes Treatment Clinical Notes Section Notes 08/31/2024 Onychomycosis (ICD-10 - B35.1) 08/31/2024 Osteoarthritis of midtarsal joint of left foot (ICD-10 - M19.072) 12/28/2024 Pain in right toe(s) (ICD-10 - M79.674) 05/03/2025 Pain in right toe(s) (ICD-10 - M79.674) 05/03/2025 Onychomycosis (ICD-10 - B35.1) 12/28/2024 Onychomycosis (ICD-10 - B35.1) 08/31/2024 Pain in right toe(s) (ICD-10 - M79.674) 08/31/2024 Pain in left toe(s) (ICD-10 - M79.675) 05/03/2025 Pain in left toe(s) (ICD-10 - M79.675) 12/28/2024 Pain in left toe(s) (ICD-10 - M79.675) 08/31/2024 Pain in left foot (ICD-10 - M79.672) 08/31/2024 Pain in left ankle and joints of left foot (ICD-10 - M25.572) 08/31/2024 Bursitis of left foot (ICD-10 - M77.52) Plan Of Treatment Next Appt Details Provider Name:Ariadne sunshine, 08/09/2025 11:30:00 AM, [address] [place], [address], Insurance Providers Payer Name Payer Address Payer Phone Subscriber Number Group Number Insured Name Patient Relationship to Insured Coverage Start Date Coverage End Date Medicare [employer] [facility] [address] [place] [address] [id number] Mitzi Abraham Self - patient is the insured [facility] [address] [place] [address] [id number] Mitzi Abraham Self - patient is the insured Medical (General) History Medical History History ICD Code Arthritis Measles Mumps Chicken pox Joint implants/screws Surgical History Surgery Date(Month/Year) knee replacement 2004 back surgery / Lumbar 2011 back surgery / Lumbar 2012 back surgery / Lumbar 2015
--- OUTSIDE RECORDS SUMMARY | 2025-05-30 22:20 | XMS_ITS | Data Portability ---
Author Organization [facility], [address] Address [address] [place] [address] Assessment No assessment recorded. Plan of Treatment Reminders Order Date Submit Date Provider Last Modified By Organization Details Last Modified Time Details Appointments None recorded. Lab rapid SARS CoV 2 Ag, QL IA, respiratory specimen 2022 023 [email or web address] [facility], [facility] [place], [address], 13:06:42 Referral None recorded. Procedures None recorded. Surgeries None recorded. Imaging None recorded. Medication Orders benzonatate 100 mg capsule 2022 023 [facility] #[id number], [address] [facility] [place], [address], 13:06:44 Patient TargetsNo targets recorded. Patient Instructions Encounter Date Encounter Id Patient Instructions Last Modified By Organization Details Last Modified Time 11/12/2022 [id number] cough: care instructions [place] [id number] Not available 11/12/2022 13:06:42 Reason for Referral None Reported. Results Created Date Observation Date Name Description Value Unit Range Abnormal Flag Note LastModifiedBy Organization Detail LastModifiedTime 11/13/1911/12/2022 rapid SARS CoV 2 Ag, QL IA, respi rator y speci men Unknown Analyte Normal =Negat dany Not Available [facility] [place], [address], 11/12/2022 12:24:04 11/13/19 23 11/12/2022 rapid SARS CoV 2 Ag, QL IA, respi rator y speci men Unknown Analyte negati ve Not Available [address] [facility], [place], [address], 11/12/2022 12:24:04 Result Notes None recorded. Problems Name Problem SNOMED Code Status Onset Date Resolution Date Notes Provider Name and Address Organization Details Recorded Time Hypertensive disorder 34606753 Active 2022 MAXIMO WADE null, [place] - [facility] 12:22:05 Gastroesophage al reflux disease 899482147 Active 2022 MAXIMO WADE null, [place] - [facility] 12:22:19 Hyperlipidemia 53796010 Active 2022 MAXIMO WADE null, [place] - [facility] 12:22:31 Anxiety 04825999 Active 2022 MAXIMO WADE null, [place] - [facility] 3 12:22:46 Arthritis 4124227 Active 2022 MAXIMO WADE null, [place] - [facility] 12:26:15 Problem Notes None recorded. Procedures Surgical History Date Name Laterality Status Provider Name and Address Organization Details Recorded Time procedure on back completed MAXIMO WADE PA - [facility] 11/12/2022 12:23:27 [facility] 11/12/2022 12:23:41 extraction of cataract [facility] 11/12/2022 12:23:57 section completed MAXIMO WADE PA - [facility] 11/12/2022 12:24:14 Imaging Results None recorded. Procedure Notes None recorded. Medical Equipment None Reported. Allergies Allergen ID Allergen Name Allergen Category Reaction Reaction Severity Criticality Documentation Date Start Date Code Code System Note Provider Name and Address Organization Details Recorded Time 710415 aspirin medicatio n hives Not available Not available 11/12/2022 1191 RxNorm MAXIMO WADE null, [place] - [facility] 12:18:57 Medications Name Sig Start Date Stop Date Status Note LastModified by Organization Details LastModified Time celecoxib 200 mg capsule TAKE 1 CAPSULE BY MOUTH EVERY DAY 11/12 completed Not Available Not Available Not Available hydralazine 10 mg tablet TAKE 1 TABLET BY MOUTH 2 TIMES A DAY. STOP TRIAM/HCT Z. active Not Available Not Available No t Available carvedilol 6.25 mg tablet TAKE 1 TABLET BY MOUTH TWICE A DAY active Not Available Not Available No t Available prednisone 10 mg tablet TAKE 2 TABS BY MOUTH DAILY X 7 DAYS, THEN TAKE 1 TAB BY MOUTH DAILY X 7 DAYS 11/12 completed Not Available Not Available Not Available Nizoral A-D 1 % shampoo TOPICALLY EVERY THIRD DAY OTC active Not Available Not Available No t Available citalopram 40 mg tablet TAKE 1 TABLET BY MOUTH EVERY DAY active Not Available Not Available No t Available trazodone 50 mg tablet TAKE 1 TABLET BY MOUTH EVERYDAY AT BEDTIME active Not Available Not Available No t Available pravastatin 40 mg tablet TAKE 1 TABLET BY MOUTH EVERY DAY active Not Available Not Available No t Available omeprazole 40 mg capsule,del ayed release TAKE 1 CAPSULE BY MOUTH EVERY DAY active Not Available Not Available No t Available tramadol 50 mg tablet TAKE 1 TABLET BY MOUTH FOUR TIMES A DAY NEEDED FOR PAIN active Not Available Not Available No t Available amlodipine 5 mg-benazepr il 20 mg capsule TAKE 1 CAPSULE BY MOUTH EVERY DAY active Not Available Not Available No t Available benzonatate 100 mg capsule Take 1 capsule 3 times a day by oral route for 5 days. 2022 active Not Available Not Available Not Avai lable hydroxyzine HCl 10 mg tablet TAKE 1 TABLET BY MOUTH TWICE A DAY active Not Available Not Available No t Available Vitamin D3 active Not Available Not Av ailable Not Available Myrbetriq 50 mg tablet,exte nded release TAKE 1 TABLET BY MOUTH EVERY DAY DO NOT CRUSH OR CHEW active Not Available Not Available No t Available Vitals Date Recorded Body height Body mass index (BMI) Body weight Pain severity - 0-10 verbal numeric rating [Score] - Reported Respiratory rate Oxygen saturation Heart rate Body temperature Systolic And Diastolic Provider Name and Address Organization Details Last Updated DateTime 3 154.94 cm 25.7 kg/m2 55460.5 6 g 0 19 /min 97 % 70 /min 98.5 [degF] 143/64 mm[Hg] MAXIMO QUEZADA - [facility] 12:25:34 Social History Question Answer Notes LastModified by Organizat [facility] Details LastModified Time Tobacco Smoking Status Never Smoker [facility] 11/12/2022 12:23:00 Have You Recently Traveled Abroad? No [email or web address] Information not available 11/12/2022 Sex: Unknown Functional Status Question Answer Note LastModified by Organizat [facility] Details LastModified Time Do you use any illicit or recreational drugs? No [email or web address] Information not available 11/12/2022 Do you or have you ever used any other forms of tobacco or nicotine? No [email or web address] Information not available 11/12/2022 What is your level of alcohol consumption? None [email or web address] Information not available 11/12/2022 Mental Status None recorded. Family History Relationship Description Onset Age of this Age Resolved Age Notes LastModified by Organization Details LastModified Time Father No current problems or disability [email or web address] Not available 11/12 12:22:49 Mother No current problems or disability [email or web address] Not available 11/12 12:22:49 Medical History No medical history recorded. Gynecological HistoryNo gynecological history recorded. Obstetrics History GPAL:G 0 P 0 0 0 0 Past Encounters Encounter ID Performer Location Encounter Start Date Encounter Closed Date Diagnosis/Indication Diagnosis SNOMED-CT Code Diagnosis ICD10 Code Diagnosis IMO Codes Diagnosis Note [id number] [address] [place] [address] 07/14/2019 19:37:26 07/14/2019 20:19:08 [id number] [address] [place] [address] 07/23/2019 12:49:20 07/23/2019 13:35:05 [id number] Jaswinder Sweeney MD [address] [place] [address] 11/12/2022 11:42:05 11/12/2022 13:11:46 Upper respiratory infection 97162546 J06.9 Please follow up with PCP or Urgent Care in 3-5 days if no improvemen t or if any new symptoms occur that are concerning .Call 911 or go to nearest ER if you develop any shortness of breath, chest pain, severe headache, dizziness, or other concerning symptoms Health Concerns Section Related Observation LastModified by Organization Detai ls LastModified Time None Recorded Concern Status LastModified by Organization Details LastModified Time None Recorded Advance Directives Directive None Recorded Payers Insurance Date Sequence Insurance Name Policy Number Policy Thompson Covered Member ID Thompson Member ID Guarantor Name 11/12/2022 1 [place]ICARE [place]: [employer] Mitzi M Leigh [id number] Mitzi Abraham 11/12/2022 2 [facility] [id number] 2 Mitzi Arnold Leigh [id number] Mitzi Abraham Notes Date Note Type Note Provider Name and Address Organization Details Recorded Time 11/12/2022 text/html CoughReported by PatientHPIFor associated symptoms, patient reportspost nasal dripbut reportsno fever,no chills,no chest pain,no nausea, andno vomiting. For quality, patient reportsintermittent . For severity, patient reportsmild. For duration, patient reportsconstant. For timing, patient reportsgradual(wors e at night). Jaswinder Sweeney MD [address] [place], [address], [place] - [facility] 11/13/2022 08:30:11 OBGyn Episode No OBEpisode recorded.
--- NOTE | 2025-05-30 22:48 | PC.NURSE ---
Pt reporting /10 rt leg pain/back Pt medicated per aug Pillow placed under pts rt knee per pt request. Plan of care ongoing.
--- NOTE | 2025-05-30 23:44 | HO.NURTONUR ---
Pt presents from home where she lives alone s/p fall. Pt presents with right femur fracture. At baseline pt is A&Ox4 although does require occasional repetition. She has a #20 to the Left AC, received IVP morphine within the hour and is unable to currently score her pain as she reports well it doesn't hurt if i don't move it . Pt has been transferred into a hospital bed and is utilizing a purewick. She is aware of need for NPO status at 0000.
[2025-05-31] VITALS (19 sets, daily range): BP systolic 151–187; BP diastolic 48–93; PULSE 62–74; RESP 12–18; TEMP 36.2–37.3; O2SAT 92–99; BMI 26.3
[2025-05-31] MEDS: 0.9 % Sodium Chloride Flush 3 ML SYRINGE IVFLUSH ×2 (01:22→11:40)
[2025-05-31 06:16] LABS: Hematocrit 30.8 % (37.0-47.0); Hemoglobin 10.2 g/dl (12.0-16.0); Mean Corpuscular HGB Conc 33.1 g/dl (31.0-35.0); Mean Corpuscular Hemoglobin 30.7 pg (27.0-33.0); Mean Corpuscular Volume 92.8 fL (80.0-98.0); NRBC Abs Auto 0.000 X10*3/uL (0.0-0.012); NRBC Pct Auto 0.0 /100WBC (0.0-0.2); Platelet Count 225 X10*3/uL (160-400); Red Blood Count 3.32 X10*6/uL (4.20-5.50); White Blood Count 11.3 X10*3/uL (4.8-10.8)
[2025-05-31 06:23] LABS: Anion Gap 11 (12-20); Blood Urea Nitrogen 27 mg/dL (9-16); Calcium 10.0 mg/dL (8.4-10.2); Carbon Dioxide 24 mmol/L (22-29); Chloride 104 mmol/L (96-108); Creatinine Clr Calc Pharmacy 32.2; Estimated Glomerular Filt Rate 47; Potassium 4.4 mmol/L (3.3-5.1); Sodium 135 mmol/L (135-145)
--- NOTE | 2025-05-31 07:29 | PM.CNOR ---
History of Present Illness HPI Consult date: 05/31/25 <Tere Scott PA-C - Last Filed: 05/31/25 07:55> Chief complaint: HIP FRACTURE <Tere Scott PA-C - Last Filed: 05/31/25 07:55> Narrative: 84-year-old female with medical history of osteoarthritis, hypertension, neurogenic bladder presents to the ED after a mechanical slip and fall on her garage stairs. Patient states she fell onto her R knee and leg and pushed her life alert for assistance as she could not get up or bear weight on the R leg due to severe pain. She states she lives alone and does her own daily chores. She does have a residential housekeeper that comes every couples weeks. She does not use assistive device for ambulation. She drives. She had a RT TKA at [facility] approx 2000 without complications. <Tere Scott PA-C - Last Filed: 05/31/25 07:55> Review of Systems Review of Systems: Yes all other systems are reviewed and are negative <Tere Scott PA-C - Last Filed: 05/31/25 07:55> [facility] Past Medical History Medical History: Medical History Depression Neurogenic bladder Arthritis Chronic pain Hypertension <Tere Scott PA-C - Last Filed: 05/31/25 07:55> Surgical History Surgical History: Surgical History Previous back surgery <Tere Scott PA-C - Last Filed: 05/31/25 07:55> Social History Social History: Social History Household Members: None Housing: Condominium Do you presently have visiting nurse or other home services: No Alcohol intake: never Patient Tobacco Use Status: Never used Tobacco Smoked in Last 30 Days: No Use of substances other than those prescribed or required for medical reasons: No Currently Displaying Signs/Symptoms of Drug Intoxication Withdrawal: No Have you been hit, kicked, punched, or otherwise hurt by someone within the past year? If so, by whom?: No Do you feel safe in your current relationship?: No Current Relationship Is there a partner from a previous relationship who is making you feel unsafe now?: No Are you made to feel afraid or neglected: No Advance Directives: Yes Advance Directives Information Provided: Yes Advance Directives on File: No Advance Directives Date on File: 05/31/25 Do you have a plan to hurt others: No Plan Recently lost weight without trying: No Nutrition Risks: No Nutritional Risk Patient : No service: No Current occupational status: retired <Tere Scott PA-C - Last Filed: 05/31/25 07:55> Meds Allergies/Adverse reactions: Allergies Allergy/AdvReac Type Severity Reaction Status Date / Time aspirin Allergy Unknown Hives Verified 05/30/25 13:52 <Tere Scott PA-C - Last Filed: 05/31/25 07:55> Active Medications: Current Medications Acetaminophen (Acetaminophen 325 Mg Tablet) 650 mg PO Q6H PRN PRN Reason: Pain, Mild 1-3,fever,headache Calcium Carbonate (Calcium Carbonate 750 Mg Tab.Chew) 750 mg PO Q4H PRN PRN Reason: Heartburn Hydralazine HCl (Hydralazine Hcl 20 Mg/Ml Vial) 5 mg IVPUSH Q6H PRN; Protocol PRN Reason: SBP>190 Cefazolin Sodium/Dextrose (Ancef) 2 gm in 50 mls @ 100 mls/hr IV PREOP ONE Stop: 05/31/25 07:40 Ketorolac Tromethamine (Ketorolac Tromethamine 30 Mg/Ml Vial) 30 mg IVPUSH Q6H PRN PRN Reason: Pain, Mild (Pain Scale 1-3) Stop: 06/04/25 17:22 Last Admin: 05/31/25 02:04 Dose: 30 mg Magnesium Hydroxide (Milk Of Magnesia 30 Ml Oral.Susp) 30 ml PO DAILY PRN PRN Reason: Constipation Melatonin (Melatonin 3 Mg Tablet) 6 mg PO BEDTIME PRN PRN Reason: Insomnia Last Admin: 05/31/25 02:04 Dose: 6 mg Morphine Sulfate (Morphine Sulfate 4 Mg/Ml Cartridge) 2 mg IVPUSH Q4H PRN; Protocol PRN Reason: Pain, Severe (Pain Scale 7-10) Last Admin: 05/30/25 22:45 Dose: 2 mg Ondansetron HCl (Ondansetron Hcl 4 Mg/2 Ml Vial) 4 mg IVPUSH Q8H PRN PRN Reason: Nausea and Vomiting Polyethylene Glycol (Polyethylene Glycol 3350 17 Gm Powd.Pack) 17 gm PO DAILY PRN PRN Reason: Constipation Sodium Chloride (0.9 % Sodium Chloride Flush 3 Ml Syringe) 3 ml IVFLUSH QSHIFT [facility] Last Admin: 05/31/25 01:22 Dose: 3 ml <Ta-Rebeca Scott PA-C - Last Filed: 05/31/25 07:55> Home medications: Home Medications ?Medication ?Instructions ?Recorded ?Confirmed ?Last Taken ?Type amlodipine 5 mg-benazepril 20 mg 1 cap PO DAILY 11/16/22 05/30/25 05/30/25 09:00 History capsule citalopram 40 mg tablet 40 mg PO DAILY 11/16/22 05/30/25 05/30/25 09:00 History hydroxyzine HCl 10 mg tablet 10 mg PO BID 11/16/22 05/30/25 05/30/25 09:00 History mirabegron 50 mg tablet,extended 50 mg PO DAILY 11/16/22 05/30/25 05/30/25 09:00 History release 24 hr (Myrbetriq) omeprazole 40 mg capsule,delayed 40 mg PO DAILY 11/16/22 05/30/25 05/30/25 09:00 History release pravastatin 40 mg tablet 40 mg PO DAILY 11/16/22 05/30/25 05/30/25 09:00 History tramadol 50 mg tablet 50 mg PO QID PRN pain 11/16/22 05/30/25 05/30/25 09:00 History trazodone 50 mg tablet 50 mg PO BEDTIME 11/16/22 05/30/25 05/30/25 09:00 History spironolactone 25 mg tablet 25 mg PO DAILY 03/12/24 05/30/25 05/30/25 09:00 History brinzolamide 1 %-brimonidine 0.2 % 1 drp ophthalmic (eye) TID 05/30/25 05/30/25 05/30/25 09:00 History eye drops,suspension (Simbrinza) cholecalciferol (vitamin D3) 25 25 mcg PO DAILY 05/30/25 05/30/25 05/30/25 09:00 History mcg (1,000 unit) tablet cyanocobalamin (vitamin B-12) 50 50 mcg PO DAILY 05/30/25 05/30/25 05/30/25 09:00 History mcg tablet (Vitamin B-12) latanoprost 0.005 % eye drops 1 drp BEDTIME 05/30/25 05/30/25 05/30/25 09:00 History eyjwdfbu-tlen-xmac 8 mg-folic 400 1 tab PO DAILY 05/30/25 05/30/25 05/30/25 09:00 History mcg-K 50 mcg-lutein 300 mcg tablet (Centrum Silver Women) omega-3 fatty acids-fish oil 684 1 cap PO DAILY 05/30/25 05/30/25 05/30/25 09:00 History mg-1,200 mg capsule,delayed release vit C 250 mg-vit E 90 mg-zinc 40 1 tab PO BID 05/30/25 05/30/25 05/30/25 09:00 History mg-copper 1 bd-brjzgx-ayppal capsule (PreserVision AREDS-2) <Tere Scott PA-C - Last Filed: 05/31/25 07:55> Physical Exam Vital Signs: Vital Signs: Last Vital Signs Temp 97.6 F 05/31/25 03:13 Pulse 73 05/31/25 03:13 Resp 16 05/31/25 03:13 BP 159/93 H 05/31/25 03:13 Pulse Ox 96 05/31/25 03:13 O2 Del Method Room Air 05/31/25 03:13 BMI result Body Mass Index 26.3 <Tere Scott PA-C - Last Filed: 05/31/25 07:55> Const: General: cooperative, healthy appearing, comfortable and no acute distress <Tere Scott PA-C - Last Filed: 05/31/25 07:55> Extrem: Other: Right knee surgical scar present. No erythema, mild swelling distal femur with mild tenderness to palpation. Calf is supple non tender She is able to plantar and dorsi flex the foot and ankle NVI <Tere Scott PA-C - Last Filed: 05/31/25 07:55> Results Labs Result Diagrams: 05/31/25 05:09 05/31/25 05:09 <MARIA DEL ROSARIO Cam Last Filed: 05/31/25 07:55> Labs: Abnormal lab results 05/30/25 05/31/25 Range/Units 14:45 05:09 WBC 11.6 H 11.3 H (4.8-10.8) X10*3/uL RBC 3.79 L D 3.32 L (4.20-5.50) X10*6/uL Hgb 11.7 L D 10.2 L (12.0-16.0) g/dl Hct 35.8 L D 30.8 L (37.0-47.0) % MPV 9.1 L (9.4-12.3) fL Neut % (Auto) 74.8 H (45-73) % Lymph % (Auto) 14.8 L (20-40) % Abs Immat Gran (auto) 0.04 H (0.00-0.03) X10*3/uL Absolute Neuts (auto) 8.7 H (2.0-8.3) x10*3/uL Anion Gap 11 L (12-20) BUN 24 H 27 H (9-16) mg/dL H & H 05/30/25 05/31/25 Range/Units 14:45 05:09 Hgb 11.7 L D 10.2 L (12.0-16.0) g/dl Hct 35.8 L D 30.8 L (37.0-47.0) % Coagulation 05/30/25 Range/Units 14:45 INR 1.0 (0.9-1.1) All other labs normal. <MARIA DEL ROSARIO Cam Last Filed: 05/31/25 07:55> Diagnostic results Knee x-ray: image reviewed (Xrays show non displaced distal femur periprosthetic fx . Knee prosthesis stable) <MARIA DEL ROSARIO Cam Last Filed: 05/31/25 07:55> Assessment and Plan (1) Femur fracture: Status: Acute <MARIA DEL ROSARIO Cam Last Filed: 05/31/25 07:55> I explained to the patient the extent of her injury which would benefit from surgical intervention for optimal functioning. The patient does understand nonsurgical intervention would result in significantly limited function including bed bound for anywhere from 8-12 weeks at least. Given the patient's activity level and she is independent with ADL's, it would be recommended to pursue surgical intervention. We discussed the procedure in detail along with the risks benefits and alternatives. Risks including but not limited to infection, injury to surrounding nerves and tissue and bone, small and large vessels, stiffness,need for further surgery, DVT/PE along with intraoperative complications including but not limited to . We discussed postoperative recovery which includes Home with VNA vs STR. I explained typical recovery is often ambulation with a walker for approximately 6 weeks,but overall recovery could be anywhere from 6-12 months. The patient does express understanding and would like to proceed with Operative fixation of the right distal femur with Dr. Reid. The patient will be booked accordingly. NPO and medical clearance obtained. <Tere Scott PA-C - Last Filed: 05/31/25 07:55> Procedures Date of Service Date of Service: 05/31/25 <Tere Scott PA-C - Last Filed: 05/31/25 07:55> 05/31/25 <Robe Reid MD - Last Filed: 05/31/25 11:54>
--- NOTE | 2025-05-31 08:12 | HO.ANESPROP2 ---
Documented by User: Marysol Bravo NP 05/31/25 08:43 HPI - Anesthesia Eval Consult details Narrative: 84 yr old female for right IM nailing. Pt seen 06/10/25, denies any cardiac hx, no CP or SOB; she is quite active, drives, goes to the [employer] [facility] for exercise classes several days per week. No recent illness. PMFSH Active Problems Active Problems: All Active Problems (Updated 05/31/25 @ 01:02 by Jia Bhatia) Closed right hip fracture (Acute) Femur fracture (Acute) Lower respiratory infection (e.g., bronchitis, pneumonia, pneumonitis, pulmonitis) (Acute) Open wound of left forearm (Acute) Knee pain (Acute) Pneumonia (Acute) Weakness (Acute) Chronic hyponatremia (Acute) Past Medical History Medical History Depression Neurogenic bladder Arthritis Chronic pain Hypertension Family History Family history of problems with anesthesia: No Surgical History Surgical History Previous back surgery History of Problems with Anesthesia: No Social History Social History Household Members: None Housing: Condominium Do you presently have visiting nurse or other home services: No Alcohol intake: never Patient Tobacco Use Status: Never used Tobacco Smoked in Last 30 Days: No Use of substances other than those prescribed or required for medical reasons: No Currently Displaying Signs/Symptoms of Drug Intoxication Withdrawal: No Have you been hit, kicked, punched, or otherwise hurt by someone within the past year? If so, by whom?: No Do you feel safe in your current relationship?: No Current Relationship Is there a partner from a previous relationship who is making you feel unsafe now?: No Are you made to feel afraid or neglected: No Advance Directives: Yes Advance Directives Information Provided: Yes Advance Directives on File: No Advance Directives Date on File: 05/31/25 Do you have a plan to hurt others: No Plan Recently lost weight without trying: No Nutrition Risks: No Nutritional Risk Patient : No service: No Current occupational status: retired Meds Allergies Allergy/AdvReac Type Severity Reaction Status Date / Time aspirin Allergy Unknown Hives Verified 05/30/25 13:52 Active Medications: Current Medications Acetaminophen (Acetaminophen 325 Mg Tablet) 650 mg PO Q6H PRN PRN Reason: Pain, Mild 1-3,fever,headache Calcium Carbonate (Calcium Carbonate 750 Mg Tab.Chew) 750 mg PO Q4H PRN PRN Reason: Heartburn Hydralazine HCl (Hydralazine Hcl 20 Mg/Ml Vial) 5 mg IVPUSH Q6H PRN; Protocol PRN Reason: SBP>190 Ketorolac Tromethamine (Ketorolac Tromethamine 30 Mg/Ml Vial) 30 mg IVPUSH Q6H PRN PRN Reason: Pain, Mild (Pain Scale 1-3) Stop: 06/04/25 17:22 Last Admin: 05/31/25 02:04 Dose: 30 mg Magnesium Hydroxide (Milk Of Magnesia 30 Ml Oral.Susp) 30 ml PO DAILY PRN PRN Reason: Constipation Melatonin (Melatonin 3 Mg Tablet) 6 mg PO BEDTIME PRN PRN Reason: Insomnia Last Admin: 05/31/25 02:04 Dose: 6 mg Morphine Sulfate (Morphine Sulfate 4 Mg/Ml Cartridge) 2 mg IVPUSH Q4H PRN; Protocol PRN Reason: Pain, Severe (Pain Scale 7-10) Last Admin: 05/30/25 22:45 Dose: 2 mg Ondansetron HCl (Ondansetron Hcl 4 Mg/2 Ml Vial) 4 mg IVPUSH Q8H PRN PRN Reason: Nausea and Vomiting Polyethylene Glycol (Polyethylene Glycol 3350 17 Gm Powd.Pack) 17 gm PO DAILY PRN PRN Reason: Constipation Sodium Chloride (0.9 % Sodium Chloride Flush 3 Ml Syringe) 3 ml [facility] Last Admin: 05/31/25 01:22 Dose: 3 ml Home Medications ?Medication ?Instructions ?Recorded ?Confirmed ?Last Taken ?Type amlodipine 5 mg-benazepril 20 mg 1 cap PO DAILY 11/16/22 05/30/25 05/30/25 09:00 History capsule citalopram 40 mg tablet 40 mg PO DAILY 11/16/22 05/30/25 05/30/25 09:00 History hydroxyzine HCl 10 mg tablet 10 mg PO BID 11/16/22 05/30/25 05/30/25 09:00 History mirabegron 50 mg tablet,extended 50 mg PO DAILY 11/16/22 05/30/25 05/30/25 09:00 History release 24 hr (Myrbetriq) omeprazole 40 mg capsule,delayed 40 mg PO DAILY 11/16/22 05/30/25 05/30/25 09:00 History release pravastatin 40 mg tablet 40 mg PO DAILY 11/16/22 05/30/25 05/30/25 09:00 History tramadol 50 mg tablet 50 mg PO QID PRN pain 11/16/22 05/30/25 05/30/25 09:00 History trazodone 50 mg tablet 50 mg PO BEDTIME 11/16/22 05/30/25 05/30/25 09:00 History spironolactone 25 mg tablet 25 mg PO DAILY 03/12/24 05/30/25 05/30/25 09:00 History brinzolamide 1 %-brimonidine 0.2 % 1 drp ophthalmic (eye) TID 05/30/25 05/30/25 05/30/25 09:00 History eye drops,suspension (Simbrinza) cholecalciferol (vitamin D3) 25 25 mcg PO DAILY 05/30/25 05/30/25 05/30/25 09:00 History mcg (1,000 unit) tablet cyanocobalamin (vitamin B-12) 50 50 mcg PO DAILY 05/30/25 05/30/25 05/30/25 09:00 History mcg tablet (Vitamin B-12) latanoprost 0.005 % eye drops 1 drp BEDTIME 05/30/25 05/30/25 05/30/25 09:00 History qagwdyul-yuce-glqk 8 mg-folic 400 1 tab PO DAILY 05/30/25 05/30/25 05/30/25 09:00 History mcg-K 50 mcg-lutein 300 mcg tablet (Centrum Silver Women) omega-3 fatty acids-fish oil 684 1 cap PO DAILY 05/30/25 05/30/25 05/30/25 09:00 History mg-1,200 mg capsule,delayed release vit C 250 mg-vit E 90 mg-zinc 40 1 tab PO BID 05/30/25 05/30/25 05/30/25 09:00 History mg-copper 1 nv-iyxejs-mzjffs capsule (PreserVision AREDS-2) Exam Height,Weight and Vital Signs: Height 5 ft 2 in Weight 65.2 kg Last Vital Signs Temp 97.6 F 05/31/25 03:13 Pulse 73 05/31/25 03:13 Resp 16 05/31/25 03:13 BP 159/93 H 05/31/25 03:13 Pulse Ox 96 05/31/25 03:13 O2 Del Method Room Air 05/31/25 03:13 Pertinent Lab Results Pertinent Lab Results: Laboratory Tests 05/30/25 05/31/25 14:45 05:09 WBC 11.6 H 11.3 H RBC 3.79 L D 3.32 L Hgb 11.7 L D 10.2 L Hct 35.8 L D 30.8 L MCV 94.5 92.8 MCH 30.9 30.7 MCHC 32.7 33.1 RDW 13.2 13.0 Plt Count 242 225 MPV 9.1 L 9.7 Immature Gran % (Auto) 0.3 Neut % (Auto) 74.8 H Lymph % (Auto) 14.8 L [place] % (Auto) 7.4 Eos % (Auto) 2.3 Baso % (Auto) 0.4 Lymph # (Auto) 1.7 [place] # (Auto) 0.9 Eos # (Auto) 0.3 Baso # (Auto) 0.1 Abs Immat Gran (auto) 0.04 H Absolute Neuts (auto) 8.7 H Absolute Nucleated RBC 0.000 0.000 Nucleated RBC % (auto) 0.0 0.0 PT 12.6 INR 1.0 Sodium 138 135 Potassium 5.1 4.4 Chloride 105 104 Carbon Dioxide 26 24 Anion Gap 12 11 L BUN 24 H 27 H Creatinine 0.96 1.11 Estim Creat Clear Calc 37.9 32.2 Estimated GFR 55 47 Random Glucose 111 99 Calcium 10.2 D 10.0 Total Bilirubin 0.5 AST 28 ALT 20 Alkaline Phosphatase 75 Total Protein 7.1 Albumin 4.7 Blood Type A Positive Antibody Screen NEGATIVE Narrative Narrative: ECHO 09/2023 The left ventricle is mildly dilated. Wall thickness is mildly increased. Systolic function is preserved. EF is 55-60% No defiinte wall motion abnormalities detected but cannot be excluded. Grade II diastolic dysfunction. The left atrium is moderately to severely dilated. Moderate aortic regurgitation. Mild to moderate mitral regurgitation. The right ventricle is normal in size. Function appears borderline preserved. The right atrium is dilated. The pulmonary artery systolic pressure estimation is 30-35 mmHg. Airway Mallampati Class: III TM Dist: >3cm Neck ROM: Full Denture: Upper and Lower Assessment and Plan Final Anesthetic Review Family History of Problems with Anesthesia: No History of Problems with Anesthesia: No Documented by User: Sabine Bartlett MD 05/31/25 12:52 [facility] Past Medical History Medical History Depression Neurogenic bladder Arthritis Chronic pain Hypertension Surgical History Surgical History Previous back surgery Social History Social History Household Members: None Housing: Condominium Do you presently have visiting nurse or other home services: No Alcohol intake: never Patient Tobacco Use Status: Never used Tobacco Smoked in Last 30 Days: No Use of substances other than those prescribed or required for medical reasons: No Currently Displaying Signs/Symptoms of Drug Intoxication Withdrawal: No Have you been hit, kicked, punched, or otherwise hurt by someone within the past year? If so, by whom?: No Do you feel safe in your current relationship?: No Current Relationship Is there a partner from a previous relationship who is making you feel unsafe now?: No Are you made to feel afraid or neglected: No Advance Directives: Yes Advance Directives Information Provided: Yes Advance Directives on File: No Advance Directives Date on File: 05/31/25 Do you have a plan to hurt others: No Plan Recently lost weight without trying: No Nutrition Risks: No Nutritional Risk Patient : No service: No Current occupational status: retired Meds Allergies Allergy/AdvReac Type Severity Reaction Status Date / Time aspirin Allergy Unknown Hives Verified 05/30/25 13:52 Home Medications ?Medication ?Instructions ?Recorded ?Confirmed ?Last Taken ?Type amlodipine 5 mg-benazepril 20 mg 1 cap PO DAILY 11/16/22 05/30/25 05/30/25 09:00 History capsule citalopram 40 mg tablet 40 mg PO DAILY 11/16/22 05/30/25 05/30/25 09:00 History hydroxyzine HCl 10 mg tablet 10 mg PO BID 11/16/22 05/30/25 05/30/25 09:00 History mirabegron 50 mg tablet,extended 50 mg PO DAILY 11/16/22 05/30/25 05/30/25 09:00 History release 24 hr (Myrbetriq) omeprazole 40 mg capsule,delayed 40 mg PO DAILY 11/16/22 05/30/25 05/30/25 09:00 History release pravastatin 40 mg tablet 40 mg PO DAILY 11/16/22 05/30/25 05/30/25 09:00 History tramadol 50 mg tablet 50 mg PO QID PRN pain 11/16/22 05/30/25 05/30/25 09:00 History trazodone 50 mg tablet 50 mg PO BEDTIME 11/16/22 05/30/25 05/30/25 09:00 History spironolactone 25 mg tablet 25 mg PO DAILY 03/12/24 05/30/25 05/30/25 09:00 History brinzolamide 1 %-brimonidine 0.2 % 1 drp ophthalmic (eye) TID 05/30/25 05/30/25 05/30/25 09:00 History eye drops,suspension (Simbrinza) cholecalciferol (vitamin D3) 25 25 mcg PO DAILY 05/30/25 05/30/25 05/30/25 09:00 History mcg (1,000 unit) tablet cyanocobalamin (vitamin B-12) 50 50 mcg PO DAILY 05/30/25 05/30/25 05/30/25 09:00 History mcg tablet (Vitamin B-12) latanoprost 0.005 % eye drops 1 drp BEDTIME 05/30/25 05/30/25 05/30/25 09:00 History irpflwnx-ikvt-wnoe 8 mg-folic 400 1 tab PO DAILY 05/30/25 05/30/25 05/30/25 09:00 History mcg-K 50 mcg-lutein 300 mcg tablet (Centrum Silver Women) omega-3 fatty acids-fish oil 684 1 cap PO DAILY 05/30/25 05/30/25 05/30/25 09:00 History mg-1,200 mg capsule,delayed release vit C 250 mg-vit E 90 mg-zinc 40 1 tab PO BID 05/30/25 05/30/25 05/30/25 09:00 History mg-copper 1 ey-xngnza-tzhdeq capsule (PreserVision AREDS-2) Exam Airway Heart: rrr Lungs: cta Assessment and Plan Assessment Anesthesia Assessment: Anesthesia Plan Discussed and Chart Reviewed Final Anesthetic Review NPO: Yes ASA Class: III Final Preanesthetic Review: No Changes in Pt Med Stat, Meds/Allgs Chart Reviewed, Consent Obtained/Reviewed and Anes Risks/Benef Reviewed Patient Risk: Intermediate Procedure Risk: Intermediate Anesthetic Plan Anesthetic Plan: GA and Agree w/ Assess. and Plan Disposition: Standard PACU
--- NOTE | 2025-05-31 10:43 | P.PNIM_ITS ---
Subjective Subjective Date of Service: 05/31/25 Review of Systems Follow up femur fx pain with movement plan for OR today Physical Exam 2 Exam: Exam: Appearing in no acute distress head is normocephalic atraumatic eyes pupils are PERRLA sclera is anicteric mouth throat mucous membranes are intact and moist neck is supple no lymphadenopathy, no JVD noted lung sounds are clear to auscultation heart regular rate rhythm, clear S1, S2 positive bowel sounds, abdomen is soft, nontender neuro patient is alert x3, no focal deficits Vital Signs: Vital Signs: Last Vital Signs Temp 97.2 F 05/31/25 08:00 Pulse 69 05/31/25 08:00 Resp 14 05/31/25 08:00 BP 153/66 H 05/31/25 08:00 Pulse Ox 95 05/31/25 08:00 O2 Del Method Room Air 05/31/25 08:00 BMI result Body Mass Index 26.3 Objective Data Active Medications Acetaminophen (Acetaminophen 325 Mg Tablet) 650 mg PO Q6H PRN PRN Reason: Pain, Mild 1-3,fever,headache Calcium Carbonate (Calcium Carbonate 750 Mg Tab.Chew) 750 mg PO Q4H PRN PRN Reason: Heartburn Hydralazine HCl (Hydralazine Hcl 20 Mg/Ml Vial) 5 mg IVPUSH Q6H PRN; Protocol PRN Reason: SBP>190 Ketorolac Tromethamine (Ketorolac Tromethamine 30 Mg/Ml Vial) 30 mg IVPUSH Q6H PRN PRN Reason: Pain, Mild (Pain Scale 1-3) Stop: 06/04/25 17:22 Last Admin: 05/31/25 02:04 Dose: 30 mg Documented By: GREY Magnesium Hydroxide (Milk Of Magnesia 30 Ml Oral.Susp) 30 ml PO DAILY PRN PRN Reason: Constipation Melatonin (Melatonin 3 Mg Tablet) 6 mg PO BEDTIME PRN PRN Reason: Insomnia Last Admin: 05/31/25 02:04 Dose: 6 mg Documented By: GREY Morphine Sulfate (Morphine Sulfate 4 Mg/Ml Cartridge) 2 mg IVPUSH Q4H PRN; Protocol PRN Reason: Pain, Severe (Pain Scale 7-10) Last Admin: 05/30/25 22:45 Dose: 2 mg Documented By: OLIVIA Ondansetron HCl (Ondansetron Hcl 4 Mg/2 Ml Vial) 4 mg IVPUSH Q8H PRN PRN Reason: Nausea and Vomiting Polyethylene Glycol (Polyethylene Glycol 3350 17 Gm Powd.Pack) 17 gm PO DAILY PRN PRN Reason: Constipation Sodium Chloride (0.9 % Sodium Chloride Flush 3 Ml Syringe) 3 ml IVFLUSH QSHIFT DANIAL Last Admin: 05/31/25 01:22 Dose: 3 ml Documented By: GREY Labs 05/31/25 05:09 05/31/25 05:09 Labs: Laboratory Results - last 24 hr 05/30/25 05/31/25 14:45 05:09 MCV 94.5 92.8 MCH 30.9 30.7 MCHC 32.7 33.1 RDW 13.2 13.0 Plt Count 242 225 MPV 9.1 L 9.7 Immature Gran % (Auto) 0.3 Neut % (Auto) 74.8 H Lymph % (Auto) 14.8 L [place] % (Auto) 7.4 Eos % (Auto) 2.3 Baso % (Auto) 0.4 Lymph # (Auto) 1.7 [place] # (Auto) 0.9 Eos # (Auto) 0.3 Baso # (Auto) 0.1 Abs Immat Gran (auto) 0.04 H Absolute Neuts (auto) 8.7 H Absolute Nucleated RBC 0.000 0.000 Nucleated RBC % (auto) 0.0 0.0 PT 12.6 INR 1.0 Anion Gap 12 11 L Estim Creat Clear Calc 37.9 32.2 Estimated GFR 55 47 Random Glucose 111 99 Calcium 10.2 D 10.0 Total Bilirubin 0.5 AST 28 ALT 20 Alkaline Phosphatase 75 Total Protein 7.1 Albumin 4.7 Blood Type A Positive Antibody Screen NEGATIVE Assessment and Plan (1) Closed right hip fracture: Status: Acute Plan 84 year old women admitted after a fall and sustaining a femur fracture Femur fracture secondary to Fall nondisplaced oblique fracture Orthopedic consultation>OR today Pain management bed rest NPO Fall no LOC PT consultation after surgical procedure Hypertension with elevated blood pressure readings Pain contributing continue home medications hydralazine IV for SBP >190 Neurogenic bladder continue Myrbetric GERD PPI HLD Hold statin Mental health continue home medications DVT prophylaxis with SCD boots Full code Quality Stroke Does the patient have a stroke diagnosis?: No VTE Prior VTE?: No VTE Risk Level:: Medical - moderate - high VTE Device Contraindication: N/A - Device Ordered VTE Drug Contraindication: Treatment Not Indicated
--- NOTE | 2025-05-31 12:00 | MHC.SHP ---
Pre-Procedural Eval Section A - 24 Hr Update-Section A only Date of Service: 05/31/25 The patient is an INPATIENT: Yes Changes since office visit: No Cold of Flu in the past 2 weeks, No New Medical Problems, No Changes in Medication and No Patient answered all questions The patient has been examined within 24 hours of the surgical procedure. The History & Physical has been completed within 30 days and I have reviewed it.: Yes Section B - Complete if H&P > 30 days Chief Complaint: HIP FRACTURE Allergies: Allergies Allergy/AdvReac Type Severity Reaction Status Date / Time aspirin Allergy Unknown Hives Verified 05/30/25 13:52 Plan I have reviewed the history and physical and performed a pertinent physical examination on my patient. No changes have occurred unless specified. Time Spent With Patient Time: Total time managing care of this patient today ____ minutes.
--- NOTE | 2025-05-31 13:30 | MHC.CM.PN ---
Patient off unit for procedure. Will reattempt CM assessment tomorrow.
--- NOTE | 2025-05-31 15:23 | P.BOP_ITS ---
Brief Operative Note Date of Service: 05/31/25 Pre-op diagnosis: Right periprosthetic femur fracture Post-op diagnosis: same Procedure: Right femoral retrograde IMN Implants: Adin retrograde [id number] with 2 distal interlocking and one proximal interlocking Surgeon: Robe Reid MD Anesthesia: GETA Was an Aircraft Engine Mechanic Supervisor used for this Procedure?: Yes Aircraft Engine Mechanic Supervisor: Tere Scott Estimated blood loss (mL): 100 IV fluids (mL): 500 Pathology: none sent Condition: stable Disposition: PACU
--- NOTE | 2025-05-31 15:51 | PM.EVENT ---
Event Note Date of Service: 05/31/25 Event Note: Patient status post right femoral retrograde IMN. Apparently during the surgical procedure patient had a 6-8 seconds episode of asystole. During the drilling procedure she was also having episodes of no P waves. We will consult Cardiology echocardiogram Time Spent With Patient Time: Total time managing care of this patient today ____ minutes.
--- NOTE | 2025-06-01 | ECG_ITS ---
Test Reason : post op pauses during surgery Blood Pressure : */* mmHG Vent. Rate : 66 BPM Atrial Rate : 66 BPM P-R Int : 166 ms QRS Dur : 126 ms QT Int : 408 ms P-R-T Axes : 81 -14 78 degrees QTcB Int : 427 ms Normal sinus rhythm Left ventricular hypertrophy with QRS widening ( R in aVL , [place] product ) Abnormal ECG When compared with ECG of 16-Nov-2022 00:03, Nonspecific T wave abnormality has replaced inverted T waves in Lateral leads Referred By: Lamont Marlow Electronically Signed By: Lamont Marlow
[2025-06-01 03:43] VITALS: BP 155/58; PULSE 65; RESP 18; TEMP 36.4; O2SAT 93
[2025-06-01] MEDS: 0.9 % Sodium Chloride Flush 3 ML SYRINGE IVFLUSH ×3 (05:05→17:52)
[2025-06-01 07:13] VITALS: BP 167/92; PULSE 67; RESP 18; TEMP 37.3; O2SAT 92
--- NOTE | 2025-06-01 07:26 | PM.PNORT ---
Subjective Subjective Date of Service: 06/01/25 Interval history: POD1 s/p right femur retrograde IM Nail Patient is resting in bed comfortably No overnight events Pain is managed No additional complaints Physical Exam Vital Signs: Vital Signs: Last Vital Signs Temp 99.1 F 06/01/25 07:13 Pulse 67 06/01/25 07:13 Resp 18 06/01/25 07:13 BP 167/92 H 06/01/25 07:13 Pulse Ox 92 06/01/25 07:13 O2 Del Method Room Air 06/01/25 07:13 O2 Flow Rate 2 05/31/25 16:35 BMI result Body Mass Index 26.3 Const: General: cooperative, healthy appearing and no acute distress Resp: Effort & Inspection: normal respiratory effort and able to speak in complete sentences Extrem: Other: right lower extremity dressing is c/d/i. Able to dorsi/plantar flex. Calf is supple and nontender. Sensation intact. Pedal pulse intact. Psych: Appearance: grossly normal Mental Status: mental status grossly normal Attitude: cooperative Procedures Date of Service Date of Service: 06/01/25 Progress Note: A&P Assessment and plan (1) Femur fracture: Status: Acute Plan Continue pain mgmnt Begin Lovenox for dvt ppx begin PT/OT for right femur retrograde IM Nail - WBAT Dispo planning-Pending PT eval, pain mgmnt, pending cardiology consult Time Spent With Patient Time: Total time managing care of this patient today ____ minutes. Quality Stroke Does the patient have a stroke diagnosis?: No VTE Prior VTE?: No VTE Risk Level:: Medical - moderate - high VTE Device Contraindication: N/A - Device Ordered VTE Drug Contraindication: Treatment Not Indicated
--- NOTE | 2025-06-01 07:30 | CA_ITS ---
Transthoracic Echocardiogram Patient (Last, First, Middle): Mitzi Abraham, Gender: Female Date of : 1940 Age: 84 Procedure Date: 06/01/2025 Procedure Type: Transthoracic Echocardiogram Location: [facility] Height: 157.48 cm Weight: 64.86 kg BSA: 1.66 m2 Heart Rate: 64 bpm BP: 167 / 92 mmHg Veneer Glue Jointer Feedback: SB Referring MD: Rula Can NP Symptoms: pauses during surgical procedure Study Quality: Adequate ECG Rhythm: Sinus Conclusions: - Normal left ventricular size and systolic function. The visually estimated ejection fraction is between 55-60%. - E/E prime ratio is >15, consistent with elevated filling pressures. - Normal right ventricular cavity size and systolic function. - There is mild aortic valve stenosis. Findings Left Ventricle Normal left ventricular size and systolic function. The visually estimated ejection fraction is between 55-60%. There is no evidence of regional wall motion abnormalities. Abnormal diastolic function is noted. Spectral Doppler is indicative of an impaired relaxation filling pattern. E/E prime ratio is >15, consistent with elevated filling pressures. There is moderate septal asymmetric hypertrophy. Right Ventricle Normal right ventricular cavity size and systolic function. Atria The left atrium is normal in size. The right atrium is normal in size. Aortic Valve There is a normal trileaflet aortic valve. There is moderate calcification of the aortic valve. There is mild aortic valve stenosis. The peak aortic velocity is 2.08 m/s. The mean gradient is 10 mmHg. There is mild aortic valve regurgitation. Mitral Valve The mitral valve appears normal. There is moderate mitral annular calcification. There is trace mitral valve regurgitation. There is no mitral valve stenosis. Pulmonic Valve The pulmonic valve is likely normal. Tricuspid Valve Normal tricuspid valve structure. There is trace tricuspid valve regurgitation. Tricuspid regurgitation envelope is inadequate for calculation of right ventricular systolic pressure. Normal right atrial pressure. Great Vessels All visible segments of the aorta are normal in size. The visualized portions of the pulmonary artery and branches are normal. Venous The inferior vena cava is normal in size and collapses greater than 50% with inspiration. Pericardium/Pleural There is no evidence of pericardial effusion. Prior Study Comparison No prior study available for comparison. Measurements 2D Linear Measurements IVSd: 1.01 0.6-0.9/0.6-1.0 cm LVIDd: 4.82 3.9-5.3/4.2-5.9 cm LVIDd Index: 2.90 2.4-3.2/2.2-3.1 cm/m2 LVIDs: 3.26 2.0-3.6 cm LVPWd: 0.78 0.7-1.1 cm LA Diam: 3.40 2.7-3.8/3.0-4.0 cm LAIDs Index: 2.05 1.5-2.3 cm/m2 LV Mass: 184.31 67-162/88-224 g LV Mass Index: 111.03 43-95/49-115 g/m2 LVOT Diam: 1.90 3.0+(-)1.3 cm 2D Systolic Function EF 4C: 53.40 >55% EF 2C: 59.50 >55% EF BiP: 57.60 >55% Mitral Valve MV VTI: 0.27 MV Pk Tommy: 1.24 MV Mn Tommy: 0.60 MV Pk Grad: 6.00 MV Mn Grad: 2.00 MV Pk E: 0.86 MV PK A: 1.08 MV Decel Time: 201.00 E/A: 0.80 E'Lateral: 4.79 E'Medial: 4.46 E/E' Med: 19.20 E/E' Lat: 17.90 PHT: 59.00 MVA PHT: 3.73 MVA Continuity: 2.70 Decel [place]: 4.27 Aortic Valve AoV Pk Tommy: 2.08 AoV Mn Tommy: 1.51 AoV VTI: 0.48 AoV Pk Grad: 17.00 Aov Mn Grad: 10.00 BRIAN Cont.VTI: 1.52 AI Pk Tommy: 3.72 AI VTI: 1.71 AI [place]: 2.64 LVOT LVOT Pk Tommy: 1.19 LVOT Mn Tommy: 0.76 LVOT VTI: 0.26 LVOT Pk Grad: 6.00 LVOT Mn Grad: 3.00 LVOT Diam: 1.90 LVOT Area: 2.84 Diastolic Function MV Pk E: 0.86 MV Pk A: 1.08 E/A: 0.80 E'Medial: 4.46 E/E' Med: 19.20 E' Laterial: 4.79 E/E' Lat: 17.90 Right Ventricle TAPSE (mm): 17.10 TVS' Tommy: 11.20 Tricuspid Valve TR Pk Tommy: 2.64 TR Pk Grad: 28.00 RA Press: 3.00 Great Vessels Aorta Sinus of Valsalva: 3.40 2.0-3.5 cm Ao Asc: 3.70 2.1-3.4 cm Ao Arch: 2.40 Pulmonary Veins Pulm Vein S/D 1.90 Pulmonary Valve PV Pk Tommy: 0.89 Peak PV Grad: 3.00 Updated in Other Vendor System with Status of Final Lamont Marlow MD electronically signed on 06/01/2025 8:57:51 PM with status of Final
[2025-06-01] MEDS: Mirabegron 50 MG TAB.ER.24H PO (07:57)
[2025-06-01 08:34] VITALS: BP 146/62
--- NOTE | 2025-06-01 08:47 | MHC.CM.PN ---
IMM was addressed with Patient. Patient lives alone in a condo and required no services nor DME TILE PICKER. Patient will benefit from a PT Eval to assist with disposition; Patient has agreed to a local SNF search with [facility] her first choice. CM has initiated and will follow for dc planning/Patient is likely to require BLS transport at dc. PCP is Dr. Sailaja Shah and Son/Miguel Ángel is the HCP.
--- NOTE | 2025-06-01 09:05 | P.PNIM_ITS ---
Subjective Subjective Date of Service: 06/01/25 Review of Systems F/U s/p right femur retrograde IM Nail Patient is resting in bed comfortably No overnight events Pain is managed Reports feeling good today no complaints Review of Systems: Yes all other systems are reviewed and are negative Physical Exam 2 Vital Signs: Vital Signs: Last Vital Signs Temp 99.1 F 06/01/25 07:13 Pulse 67 06/01/25 07:13 Resp 18 06/01/25 07:13 BP 146/62 H 06/01/25 08:34 Pulse Ox 92 06/01/25 07:13 O2 Del Method Room Air 06/01/25 07:13 O2 Flow Rate 2 05/31/25 16:35 BMI result Body Mass Index 26.3 Appearing in no acute distress head is normocephalic atraumatic eyes pupils are PERRLA sclera is anicteric mouth throat mucous membranes are intact and moist neck is supple no lymphadenopathy, no JVD noted lung sounds are clear to auscultation heart regular rate rhythm, clear S1, S2 positive bowel sounds, abdomen is soft, nontender Musculoskeletal: right lower extremity dressing is c/d/i. Able to dorsi/plantar flex. Calf is supple and nontender. Sensation intact. Pedal pulse present neuro patient is alert x3, no focal deficits Objective Data Active Medications Acetaminophen (Acetaminophen 325 Mg Tablet) 650 mg PO Q6H PRN PRN Reason: Pain, Mild 1-3,fever,headache Amlodipine Besylate (Amlodipine Besylate 5 Mg Tablet) 5 mg PO DAILY [facility] Last Admin: 06/01/25 07:57 Dose: 5 mg Documented By: PATRICIA Calcium Carbonate (Calcium Carbonate 750 Mg Tab.Chew) 750 mg PO Q4H PRN PRN Reason: Heartburn Carvedilol (Carvedilol 12.5 Mg Tablet) 12.5 mg PO BID [facility]; Protocol Last Admin: 06/01/25 07:57 Dose: 12.5 mg Documented By: PATRICIA Docusate Sodium (Docusate Sodium 100 Mg Capsule) 100 mg PO DAILY PRN PRN Reason: Constipation Enoxaparin Sodium (Enoxaparin Sodium 40 Mg/0.4 Ml Syringe) 40 mg SUBCUT Q24H [facility] Escitalopram Oxalate (Escitalopram Oxalate 20 Mg Tablet) 20 mg PO DAILY [facility] Last Admin: 06/01/25 07:57 Dose: 20 mg Documented By: PATRICIA Hydralazine HCl (Hydralazine Hcl 20 Mg/Ml Vial) 5 mg IVPUSH Q6H PRN; Protocol PRN Reason: SBP>190 Hydroxyzine HCl (Hydroxyzine Hcl 10 Mg Tablet) 10 mg PO BID [facility] Last Admin: 06/01/25 07:57 Dose: 10 mg Documented By: PATRICIA Cefazolin Sodium/Dextrose (Ancef) 2 gm in 50 mls @ 100 mls/hr IV POSTOP [facility] Ketorolac Tromethamine (Ketorolac Tromethamine 30 Mg/Ml Vial) 30 mg IVPUSH Q6H PRN PRN Reason: Pain, Mild (Pain Scale 1-3) Stop: 06/04/25 17:22 Last Admin: 06/01/25 08:28 Dose: 30 mg Documented By: PATRICIA Latanoprost (Latanoprost 0.005 % Ophth Bruna 2.5 Ml Drops) 1 drop EYE-BOTH BEDTIME [facility] Last Admin: 05/31/25 22:16 Dose: Not Given Documented By: MARIAELENA Non-Admin Reason: Med Not Available Lisinopril (Lisinopril 20 Mg Tablet) 20 mg PO DAILY [facility] Last Admin: 06/01/25 07:57 Dose: 20 mg Documented By: PATRICIA Magnesium Hydroxide (Milk Of Magnesia 30 Ml Oral.Susp) 30 ml PO DAILY PRN PRN Reason: Constipation Melatonin (Melatonin 3 Mg Tablet) 6 mg PO BEDTIME PRN PRN Reason: Insomnia Last Admin: 05/31/25 02:04 Dose: 6 mg Documented By: GREY Mirabegron (Mirabegron 50 Mg Tab.Er.24h) 50 mg PO DAILY [facility] Last Admin: 06/01/25 07:57 Dose: 50 mg Documented By: PARTICIA Morphine Sulfate (Morphine Sulfate 4 Mg/Ml Cartridge) 2 mg IVPUSH Q4H PRN; Protocol PRN Reason: Pain, Severe (Pain Scale 7-10) Last Admin: 05/30/25 22:45 Dose: 2 mg Documented By: OLIVIA Non-Formulary Medication (Brinzolamide-Brimonidine [Simbrinza]) 1 drop EYE-BOTH TID [facility] Omeprazole (Omeprazole 40 Mg Kana.) 40 mg PO DAILY@0630 [facility] Last Admin: 06/01/25 05:33 Dose: 40 mg Documented By: MARIAELENA Ondansetron HCl (Ondansetron Hcl 4 Mg/2 Ml Vial) 4 mg IVPUSH Q8H PRN PRN Reason: Nausea and Vomiting Polyethylene Glycol (Polyethylene Glycol 3350 17 Gm Powd.Pack) 17 gm PO DAILY PRN PRN Reason: Constipation Pravastatin Sodium (Pravastatin Sodium 40 Mg Tablet) 40 mg PO DAILY [facility] Last Admin: 06/01/25 07:57 Dose: 40 mg Documented By: PATRICIA Sodium Chloride (0.9 % Sodium Chloride Flush 3 Ml Syringe) 3 ml IVFLUSH QSHIFT [facility] Last Admin: 06/01/25 07:58 Dose: 3 ml Documented By: PATRICIA Spironolactone (Spironolactone 25 Mg Tablet) 25 mg PO DAILY [facility]; Protocol Last Admin: 06/01/25 07:57 Dose: 25 mg Documented By: PATRICIA Trazodone HCl (Trazodone Hcl 50 Mg Tablet) 50 mg PO BEDTIME [facility] Last Admin: 05/31/25 20:28 Dose: 50 mg Documented By: MARIAELENA Labs 05/31/25 05:09 05/31/25 05:09 Assessment and Plan (1) Femur fracture: Status: Acute Plan 84 year old women admitted after a fall and sustaining a right femur fracture. s/p right femur retrograde IM Nail 05/31 Right Femur fracture secondary to Fall nondisplaced oblique fracture s/p right femur retrograde IM Nail 05/31 Orthopedic f/u Continue pain mgmnt Begin Lovenox for dvt ppx begin PT/OT for right femur retrograde IM Nail - WBAT Dispo planning-PT rec STR Sinus pause Pt had 6-8 seconds episode of asystole during right femur retrograde IM Nail procedure no further episodes discussed cardiology, monitor overnight on telemetry plan for holter monitor o/p Hypertension with elevated blood pressure readings Pain management continue home medications hydralazine IV for SBP >190 Neurogenic bladder continue Myrbetric GERD PPI HLD Hold statin Mental health continue home medications DVT prophylaxis with lovenox 4 weeks post op Full code Quality Stroke Does the patient have a stroke diagnosis?: No VTE Prior VTE?: No VTE Risk Level:: Medical - moderate - high VTE Device Contraindication: N/A - Device Ordered VTE Drug Contraindication: Treatment Not Indicated
--- NOTE | 2025-06-01 09:33 | HO.POSTANES ---
Post Anesthesia Evaluation Post Anesthesia Evaluation Date of Service: 06/01/25 Vital Signs: Vital Signs Temp Pulse Resp BP Pulse Ox O2 Del Method 06/01/25 08:34 146/62 H 06/01/25 07:13 99.1 F 67 18 167/92 H 92 Room Air 06/01/25 03:43 97.6 F 65 18 155/58 H 93 Room Air 05/31/25 23:40 97.5 F 70 18 151/71 H 92 Room Air Anesthesia: General Mental Status: Awake Pain Control: Satisfactory Nausea/Vomiting: None Hydration: Adequate Anesthesia-Related Issues: No Anes. Related Issues
--- NOTE | 2025-06-01 12:34 | PM.CNCAR ---
History of Present Illness History of Present Illness Date of Service: 06/01/25 Chief complaint: HIP FRACTURE Narrative: [age] year female who presented with fall and femur fracture. She was taken for surgery and as per the Anesthesiologist during surgery she had pauses which were proximally 6-8 seconds. The patient was under general anesthesia at that time. No intervention was done and this improved. The patient is a good historian in his saying that she did not have any blackout or passing-out episode when she fell. Her telemetry also has not shown any significant arrhythmia so far. She is denying any symptoms. Denying any cardiovascular issues in the past. No chest pain or shortness of breath previously. No syncope in the past. [facility] Past Medical History Medical History (Updated 06/01/25 @ 14:38 by Lamont Marlow MD) Bilateral cataracts Aortic stenosis Depression Neurogenic bladder Arthritis Chronic pain Hypertension Surgical History Surgical History History of tonsillectomy Previous back surgery Social History Social History Household Members: None Housing: Condominium Do you presently have visiting nurse or other home services: No Alcohol intake: never Patient Tobacco Use Status: Never used Tobacco Smoked in Last 30 Days: No Use of substances other than those prescribed or required for medical reasons: No Currently Displaying Signs/Symptoms of Drug Intoxication Withdrawal: No Have you been hit, kicked, punched, or otherwise hurt by someone within the past year? If so, by whom?: No Do you feel safe in your current relationship?: No Current Relationship Is there a partner from a previous relationship who is making you feel unsafe now?: No Are you made to feel afraid or neglected: No Are you DNR?: No Advance Directives: Yes Advance Directives Information Provided: Yes Advance Directives on File: No Advance Directives Date on File: 05/31/25 Do you have a plan to hurt others: No Plan Recently lost weight without trying: No Nutrition Risks: No Nutritional Risk Patient : No : No service: No Current occupational status: retired Meds Allergies Allergy/AdvReac Type Severity Reaction Status Date / Time aspirin Allergy Unknown Hives Verified 05/30/25 13:52 Active Medications: Current Medications Acetaminophen (Acetaminophen 325 Mg Tablet) 650 mg PO Q6H PRN PRN Reason: Pain, Mild 1-3,fever,headache Amlodipine Besylate (Amlodipine Besylate 5 Mg Tablet) 5 mg PO DAILY [facility] Last Admin: 06/01/25 07:57 Dose: 5 mg Calcium Carbonate (Calcium Carbonate 750 Mg Tab.Chew) 750 mg PO Q4H PRN PRN Reason: Heartburn Carvedilol (Carvedilol 12.5 Mg Tablet) 12.5 mg PO BID [facility]; Protocol Last Admin: 06/01/25 07:57 Dose: 12.5 mg Docusate Sodium (Docusate Sodium 100 Mg Capsule) 100 mg PO DAILY PRN PRN Reason: Constipation Enoxaparin Sodium (Enoxaparin Sodium 40 Mg/0.4 Ml Syringe) 40 mg SUBCUT Q24H [facility] Escitalopram Oxalate (Escitalopram Oxalate 20 Mg Tablet) 20 mg PO DAILY [facility] Last Admin: 06/01/25 07:57 Dose: 20 mg Hydralazine HCl (Hydralazine Hcl 20 Mg/Ml Vial) 5 mg IVPUSH Q6H PRN; Protocol PRN Reason: SBP>190 Hydroxyzine HCl (Hydroxyzine Hcl 10 Mg Tablet) 10 mg PO BID [facility] Last Admin: 06/01/25 07:57 Dose: 10 mg Cefazolin Sodium/Dextrose (Ancef) 2 gm in 50 mls @ 100 mls/hr IV POSTOP@1000 [facility] Last Infusion: 06/01/25 12:17 Dose: Infused Ketorolac Tromethamine (Ketorolac Tromethamine 30 Mg/Ml Vial) 30 mg IVPUSH Q6H PRN PRN Reason: Pain, Mild (Pain Scale 1-3) Stop: 06/04/25 17:22 Last Admin: 06/01/25 08:28 Dose: 30 mg Latanoprost (Latanoprost 0.005 % Ophth Bruna 2.5 Ml Drops) 1 drop EYE-BOTH BEDTIME [facility] Last Admin: 05/31/25 22:16 Dose: Not Given Lisinopril (Lisinopril 20 Mg Tablet) 20 mg PO DAILY [facility] Last Admin: 06/01/25 07:57 Dose: 20 mg Magnesium Hydroxide (Milk Of Magnesia 30 Ml Oral.Susp) 30 ml PO DAILY PRN PRN Reason: Constipation Melatonin (Melatonin 3 Mg Tablet) 6 mg PO BEDTIME PRN PRN Reason: Insomnia Last Admin: 05/31/25 02:04 Dose: 6 mg Mirabegron (Mirabegron 50 Mg Tab.Er.24h) 50 mg PO DAILY [facility] Last Admin: 06/01/25 07:57 Dose: 50 mg Morphine Sulfate (Morphine Sulfate 4 Mg/Ml Cartridge) 2 mg IVPUSH Q4H PRN; Protocol PRN Reason: Pain, Severe (Pain Scale 7-10) Last Admin: 05/30/25 22:45 Dose: 2 mg Non-Formulary Medication (Brinzolamide-Brimonidine [Simbrinza]) 1 drop EYE-BOTH TID [facility] Omeprazole (Omeprazole 40 Mg Capsule.Dr) 40 mg PO DAILY@0630 [facility] Last Admin: 06/01/25 05:33 Dose: 40 mg Ondansetron HCl (Ondansetron Hcl 4 Mg/2 Ml Vial) 4 mg IVPUSH Q8H PRN PRN Reason: Nausea and Vomiting Polyethylene Glycol (Polyethylene Glycol 3350 17 Gm Powd.Pack) 17 gm PO DAILY PRN PRN Reason: Constipation Pravastatin Sodium (Pravastatin Sodium 40 Mg Tablet) 40 mg PO DAILY [facility] Last Admin: 06/01/25 07:57 Dose: 40 mg Sodium Chloride (0.9 % Sodium Chloride Flush 3 Ml Syringe) 3 ml IVFLUSH QSHIFT [facility] Last Admin: 06/01/25 07:58 Dose: 3 ml Spironolactone (Spironolactone 25 Mg Tablet) 25 mg PO DAILY [facility]; Protocol Last Admin: 06/01/25 07:57 Dose: 25 mg Trazodone HCl (Trazodone Hcl 50 Mg Tablet) 50 mg PO BEDTIME [facility] Last Admin: 05/31/25 20:28 Dose: 50 mg Home Medications ?Medication ?Instructions ?Recorded ?Confirmed ?Last Taken ?Type amlodipine 5 mg-benazepril 20 mg 1 cap PO DAILY 11/16/22 05/30/25 05/30/25 09:00 History capsule citalopram 40 mg tablet 40 mg PO DAILY 11/16/22 05/30/25 05/30/25 09:00 History hydroxyzine HCl 10 mg tablet 10 mg PO BID 11/16/22 05/30/25 05/30/25 09:00 History mirabegron 50 mg tablet,extended 50 mg PO DAILY 11/16/22 05/30/25 05/30/25 09:00 History release 24 hr (Myrbetriq) omeprazole 40 mg capsule,delayed 40 mg PO DAILY 11/16/22 05/30/25 05/30/25 09:00 History release pravastatin 40 mg tablet 40 mg PO DAILY 11/16/22 05/30/25 05/30/25 09:00 History tramadol 50 mg tablet 50 mg PO QID PRN pain 11/16/22 05/30/25 05/30/25 09:00 History trazodone 50 mg tablet 50 mg PO BEDTIME 11/16/22 05/30/25 05/30/25 09:00 History spironolactone 25 mg tablet 25 mg PO DAILY 03/12/24 05/30/25 05/30/25 09:00 History brinzolamide 1 %-brimonidine 0.2 % 1 drp ophthalmic (eye) TID 05/30/25 05/30/25 05/30/25 09:00 History eye drops,suspension (Simbrinza) cholecalciferol (vitamin D3) 25 25 mcg PO DAILY 05/30/25 05/30/25 05/30/25 09:00 History mcg (1,000 unit) tablet cyanocobalamin (vitamin B-12) 50 50 mcg PO DAILY 05/30/25 05/30/25 05/30/25 09:00 History mcg tablet (Vitamin B-12) latanoprost 0.005 % eye drops 1 drp BEDTIME 05/30/25 05/30/25 05/30/25 09:00 History cyxnmqgp-poye-dzlz 8 mg-folic 400 1 tab PO DAILY 05/30/25 05/30/25 05/30/25 09:00 History mcg-K 50 mcg-lutein 300 mcg tablet (Centrum Silver Women) omega-3 fatty acids-fish oil 684 1 cap PO DAILY 05/30/25 05/30/25 05/30/25 09:00 History mg-1,200 mg capsule,delayed release vit C 250 mg-vit E 90 mg-zinc 40 1 tab PO BID 05/30/25 05/30/25 05/30/25 09:00 History mg-copper 1 kq-rjcxhn-fbfxmv capsule (PreserVision AREDS-2) Physical Exam Vital Signs: Vital Signs: Last Vital Signs Temp 99.1 F 06/01/25 07:13 Pulse 67 06/01/25 07:13 Resp 18 06/01/25 07:13 BP 146/62 H 06/01/25 08:34 Pulse Ox 92 06/01/25 07:13 O2 Del Method Room Air 06/01/25 07:13 O2 Flow Rate 2 05/31/25 16:35 BMI result Body Mass Index 26.3 GENERAL APPEARANCE: in no acute distress, pleasant. NECK: no carotid bruit, no jugular venous distention. SKIN: no suspicious lesions, warm and dry. HEART: no murmurs, regular rate and rhythm. LUNGS: clear to auscultation bilaterally. ABDOMEN: soft, nontender. EXTREMITIES: no edema. PERIPHERAL PULSES: equal. NEUROLOGIC: No gross deficits, AAO X 3 Objective Labs and Meds 05/31/25 05:09 05/31/25 05:09 Imaging Radiologist's impression: Impressions Guidance Fluoroscopy 05/31/25 14:35 IMPRESSION: Fluoroscopy provided for procedure. See surgical report for details. Electronically signed by: Alfred Leonard MD 06/01/2025 07:41 AM [facility] Assessment and Plan (1) Sinus pause: Status: Acute Plan Pleasant 84-year-old lady who went to operating room for fracture and during surgery was noticed to have 6-8 seconds pauses. As per the anesthesiologist there was asystole on the telemetry. Unfortunately there is no strips available. No interventions were done and she recovered on her own. Her telemetry is not showing any significant arrhythmia. We will monitor on telemetry till discharge. After that she will be monitored as outpatient with a cardiac event monitor. Obviously if she gets any symptomatic pauses while she is inpatient we will arrange pacemaker for her. Thank you for allowing me to participate in the care of your patient. Please feel free to contact me if you have any questions. Procedures Date of Service Date of Service: 06/01/25
--- NOTE | 2025-06-01 13:51 | MHC.CM.PN ---
PT is recommending Acute Rehab; Patient prefers to accept a bed offer from [facility]. CM will follow.
--- NOTE | 2025-06-01 14:23 | MHC.CM.PN ---
Addendum entered by No Kumar 06/01/25 15:50: Patient has been accepted at [facility] and she now prefers that over [facility]. With Patient's permission, CM spoke with Son/HCP/Miguel Ángel @ [phone] and informed him of the dc plan. Original Note: Per RN, Patient's Son is asking for an update; GEOLOGY TECHNICIAN/Rula has spoken to Son.
[2025-06-01 15:47] VITALS: BP 161/70; PULSE 76; RESP 16; TEMP 36.5; O2SAT 95
[2025-06-01 19:10] VITALS: BP 154/67; PULSE 81; RESP 16; TEMP 36.4; O2SAT 97
[2025-06-01] MEDS: Latanoprost 0.005 % Ophth Sol 2.5 ML DROPS 1 DROP EYE-BOTH (22:24)
[2025-06-01] MEDS: Throat Lozenge, Medicated LOZENGE 1 LOZENGE MUCOUS MEM (22:52)
[2025-06-01 23:49] VITALS: BP 148/50; PULSE 70; RESP 16; TEMP 36.3; O2SAT 97
[2025-06-02] VITALS (9 sets, daily range): BP systolic 84–166; BP diastolic 41–68; PULSE 63–85; RESP 16–20; TEMP 36.3–37.3; O2SAT 93–96
[2025-06-02] MEDS: 0.9 % Sodium Chloride Flush 3 ML SYRINGE IVFLUSH ×2 (01:00→08:05)
--- NOTE | 2025-06-02 07:50 | PM.PNORT ---
Subjective Subjective Date of Service: 06/02/25 Interval history: POD2 s/p right femur retrograde IM Nail Patient is resting in bed comfortably No overnight events Pain is managed No additional complaints Physical Exam Vital Signs: Vital Signs: Last Vital Signs Temp 97.4 F 06/02/25 03:37 Pulse 71 06/02/25 03:37 Resp 16 06/02/25 03:37 BP 166/68 H 06/02/25 03:37 Pulse Ox 94 06/02/25 03:37 O2 Del Method Room Air 06/02/25 03:37 O2 Flow Rate 2 05/31/25 16:35 BMI result Body Mass Index 26.3 Const: General: cooperative, healthy appearing and no acute distress Resp: Effort & Inspection: normal respiratory effort and able to speak in complete sentences Extrem: Other: right lower extremity dressing is c/d/i. Able to dorsi/plantar flex. Calf is supple and nontender. Sensation intact. Pedal pulse intact. Psych: Appearance: grossly normal Mental Status: mental status grossly normal Attitude: cooperative Procedures Date of Service Date of Service: 06/02/25 Progress Note: A&P Assessment and plan (1) Femur fracture: Status: Acute Plan Continue pain mgmnt Continue Lovenox for dvt ppx Continue PT/OT for right femur retrograde IM Nail - WBAT,m PT recommending acute rehab Dispo planning-Pending PT eval, pain mgmnt, case management Time Spent With Patient Time: Total time managing care of this patient today ____ minutes. Quality Stroke Does the patient have a stroke diagnosis?: No VTE Prior VTE?: No VTE Risk Level:: Medical - moderate - high VTE Device Contraindication: N/A - Device Ordered VTE Drug Contraindication: Treatment Not Indicated
[2025-06-02] MEDS: Mirabegron 50 MG TAB.ER.24H PO (08:05)
--- NOTE | 2025-06-02 09:15 | P.OP_ITS ---
Operative Note Operative Note Date of Service: 05/31/25 Narrative: Date of Service: 05/31/25 Pre-op diagnosis: Right periprosthetic femur fracture Post-op diagnosis: same Procedure: Right femoral retrograde IMN Implants: Adin retrograde [id number] with 2 distal interlocking and one proximal interlocking Surgeon: Robe Reid MD Anesthesia: GETA Was an Master Of Ceremonies used for this Procedure?: Yes Master Of Ceremonies: Tere Scott Estimated blood loss (mL): 100 IV fluids (mL): 500 Pathology: none sent Condition: stable Disposition: PACU Procedure in detail: Patient was brought to the operating room and placed supine on the fracture table. She was prepped and draped in standard sterile fashion and a time out was called to identify proper site, proper procedure and IV antibiotics per weight were administered. I began by flexing the knee up and making a small 1 cm incision between the distal pole of the patella and the tibial tubercle directly midline. Using lateral and AP fluoro I placed the guidewire into the femur through the open box of the femoral prosthesis. I then made a larger transpatellar incision in line with the tendon fibers. A tissue retractor was placed and I over-reamed with a 12.5 opening reamer. A ball tipped guidewire was then placed across the fracture. The fracture was nondisplaced. I was able to pass a 15 reamer up the femoral canal to the level of the lesser without resistance. I then measured and placed a 300x13 mm nail. Using the targeting guide 2 distal screws were placed through the nail. Using perfect menominee technique 1 proximal interlocking screw was placed from A-P using standard AO techn ique. Final radiographs showed excellent positioning of the hardware and fracture alignment. I irrigated copiously and then closed with absorbable sutures and skin kody. Patient was then placed in sterile dressing and extubated. He was brought to the recovery room in stable condition. There were no known complications.
[2025-06-02 10:30] LABS: Glucose, Whole Blood 155 mg/dL (60-115)
--- NOTE | 2025-06-02 10:30 | PC.NURSE ---
Addendum entered by Allyssa De Jesus RN 06/02/25 13:47: 1120, pt stating she feels better. Per MD's order IVF LR started at 100ml/hr. see MAR for further information. 1200 BP 113/41; safety and fall precautions maintained, plan of care ongoing. Original Note: At 1030, pt stating that she is not feeling right; C/O Nausea and 3 episodes of vomiting and abdominal pain; PRN Zofran given with no effect; Pt noted to be pale and sweaty; POC 155, HR 63, BP 84/41, RR 19, T 98.3. Denies any dizziness, chest pain or palpitations. MD Raine Jose called to the bedside; 500ml NS Bolus given per MD's order. EKG and Labs ordered.
--- NOTE | 2025-06-02 10:38 | MHC.CM.PN ---
Per PA, Patient is not yet medically cleared for dc (nausea & low BP); Son/HCP/Miguel Ángel @ [phone] has been updated.
--- NOTE | 2025-06-02 10:42 | ECG_ITS ---
Test Reason : rhythm check Blood Pressure : */* mmHG Vent. Rate : 66 BPM Atrial Rate : 66 BPM P-R Int : 170 ms QRS Dur : 120 ms QT Int : 420 ms P-R-T Axes : 62 -20 85 degrees QTcB Int : 440 ms Normal sinus rhythm Left ventricular hypertrophy with QRS widening and repolarization abnormality ( R in aVL , Polo product ) Abnormal ECG When compared with ECG of 01-Jun-2025 11:49, No significant change was found Referred By: Raine Jose Electronically Signed By: Lamont Marlow
[2025-06-02 11:01] LABS: Hematocrit 34.5 % (37.0-47.0); Hemoglobin 11.9 g/dl (12.0-16.0); Mean Corpuscular HGB Conc 34.5 g/dl (31.0-35.0); Mean Corpuscular Hemoglobin 31.6 pg (27.0-33.0); Mean Corpuscular Volume 91.5 fL (80.0-98.0); NRBC Abs Auto 0.000 X10*3/uL (0.0-0.012); NRBC Pct Auto 0.0 /100WBC (0.0-0.2); Platelet Count 212 X10*3/uL (160-400); Red Blood Count 3.77 X10*6/uL (4.20-5.50); White Blood Count 10.3 X10*3/uL (4.8-10.8)
[2025-06-02 11:13] LABS: Anion Gap 12 (12-20); Blood Urea Nitrogen 37 mg/dL (9-16); Calcium 9.0 mg/dL (8.4-10.2); Carbon Dioxide 21 mmol/L (22-29); Chloride 102 mmol/L (96-108); Creatinine Clr Calc Pharmacy 23.5; Estimated Glomerular Filt Rate 32; Potassium 4.9 mmol/L (3.3-5.1); Sodium 130 mmol/L (135-145)
[2025-06-02] MEDS: Lactated Ringers 1,000 ML 100 ML IVCONT ×2 (11:39→20:16)
--- NOTE | 2025-06-02 12:23 | HO.PM.IMPN ---
Subjective Subjective Date of Service: 06/02/25 Interval History: seen and examined this morning on rounds, was feeling ok, planned d/c to acute rehab around 10:30 pt reported not feeling well, blood pressure low at 84/41. IVF bolus given with good effect plan to check labs. no chest pain, palpitations Review of Systems Review of Systems: Yes all other systems are reviewed and are negative Constitutional Constitutional: Denies chills and Denies fever(s) Cardiovascular Cardiovascular: Denies chest pain, Denies palpitations and Denies dyspnea Respiratory Respiratory: Denies cough and Denies dyspnea Endocrine Endocrine: Denies palpitations Physical Exam Vital Signs: Vital Signs: Last Vital Signs Temp 98.3 F 06/02/25 08:00 Pulse 69 06/02/25 08:00 Resp 18 06/02/25 08:00 BP 166/68 H 06/02/25 08:05 Pulse Ox 96 06/02/25 08:00 O2 Del Method Room Air 06/02/25 08:00 O2 Flow Rate 2 05/31/25 16:35 BMI result Body Mass Index 26.3 Const: General: cooperative, alert and awake Nutritional Appearance: average body habitus Orientation/consciousness: patient oriented x3 Resp: Effort & Inspection: normal respiratory effort, able to speak in complete sentences, no respiratory distress and no use of accessory muscles Auscultation: clear to auscultation bilaterally Cardio: Rate: regular rate GI: Inspection: No distended Palpation (GI): Soft to palpation Neuro: Other: grossly non-focal General: patient oriented x3 Extrem: Other: RLE dressing clean and dry General: No pedal edema Objective Data Active Medications Acetaminophen (Acetaminophen 325 Mg Tablet) 650 mg PO Q6H PRN PRN Reason: Pain, Mild 1-3,fever,headache Amlodipine Besylate (Amlodipine Besylate 5 Mg Tablet) 5 mg PO DAILY [facility] Last Admin: 06/02/25 08:05 Dose: 5 mg Documented By: STEVO Benzocaine (Throat Lozenge, Medicated Lozenge) 1 lozenge MUCOUS MEM Q2H PRN PRN Reason: Sore Throat Last Admin: 06/01/25 22:52 Dose: 1 lozenge Documented By: MARIAELENA Calcium Carbonate (Calcium Carbonate 750 Mg Tab.Chew) 750 mg PO Q4H PRN PRN Reason: Heartburn Carvedilol (Carvedilol 12.5 Mg Tablet) 12.5 mg PO BID [facility]; Protocol Last Admin: 06/02/25 08:05 Dose: 12.5 mg Documented By: STEVO Docusate Sodium (Docusate Sodium 100 Mg Capsule) 100 mg PO DAILY PRN PRN Reason: Constipation Enoxaparin Sodium (Enoxaparin Sodium 30 Mg/0.3 Ml Syringe) 30 mg SUBCUT Q24H [facility] Escitalopram Oxalate (Escitalopram Oxalate 20 Mg Tablet) 20 mg PO DAILY [facility] Last Admin: 06/02/25 08:05 Dose: 20 mg Documented By: STEVO Hydralazine HCl (Hydralazine Hcl 20 Mg/Ml Vial) 5 mg IVPUSH Q6H PRN; Protocol PRN Reason: SBP>190 Hydroxyzine HCl (Hydroxyzine Hcl 10 Mg Tablet) 10 mg PO BID [facility] Last Admin: 06/02/25 08:05 Dose: 10 mg Documented By: STEVO Cefazolin Sodium/Dextrose (Ancef) 2 gm in 50 mls @ 100 mls/hr IV POSTOP@1000 [facility] Last Infusion: 06/02/25 10:14 Dose: Infused Documented By: STEVO Lactated Ringer's (Lr) 1,000 mls @ 100 mls/hr IVCONT .Q10H [facility] Last Admin: 06/02/25 11:39 Dose: 100 mls/hr Documented By: STEVO Ketorolac Tromethamine (Ketorolac Tromethamine 30 Mg/Ml Vial) 30 mg IVPUSH Q6H PRN PRN Reason: Pain, Mild (Pain Scale 1-3) Stop: 06/04/25 17:22 Last Admin: 06/01/25 08:28 Dose: 30 mg Documented By: JENNYOTPACortney Latanoprost (Latanoprost 0.005 % Ophth Bruna 2.5 Ml Drops) 1 drop EYE-BOTH BEDTIME [facility] Last Admin: 06/01/25 22:24 Dose: 1 drop Documented By: MARIAELENA Lisinopril (Lisinopril 20 Mg Tablet) 20 mg PO DAILY [facility] On Hold: 06/02/25 11:26 Last Admin: 06/02/25 08:05 Dose: 20 mg Documented By: STEVO Magnesium Hydroxide (Milk Of Magnesia 30 Ml Oral.Susp) 30 ml PO DAILY PRN PRN Reason: Constipation Melatonin (Melatonin 3 Mg Tablet) 6 mg PO BEDTIME PRN PRN Reason: Insomnia Last Admin: 05/31/25 02:04 Dose: 6 mg Documented By: GREY Mirabegron (Mirabegron 50 Mg Tab.Er.24h) 50 mg PO DAILY [facility] Last Admin: 06/02/25 08:05 Dose: 50 mg Documented By: STEVO Morphine Sulfate (Morphine Sulfate 4 Mg/Ml Cartridge) 2 mg IVPUSH Q4H PRN; Protocol PRN Reason: Pain, Severe (Pain Scale 7-10) Last Admin: 05/30/25 22:45 Dose: 2 mg Documented By: OLIVIA Non-Formulary Medication (Brinzolamide-Brimonidine [Simbrinza]) 1 drop EYE-BOTH TID [facility] Omeprazole (Omeprazole 40 Mg Capsule.Dr) 40 mg PO DAILY@0630 [facility] Last Admin: 06/02/25 05:44 Dose: 40 mg Documented By: MARIAELENA Ondansetron HCl (Ondansetron Hcl 4 Mg/2 Ml Vial) 4 mg IVPUSH Q8H PRN PRN Reason: Nausea and Vomiting Last Admin: 06/02/25 09:52 Dose: 4 mg Documented By: STEVO Polyethylene Glycol (Polyethylene Glycol 3350 17 Gm Powd.Pack) 17 gm PO DAILY PRN PRN Reason: Constipation Pravastatin Sodium (Pravastatin Sodium 40 Mg Tablet) 40 mg PO DAILY [facility] Last Admin: 06/02/25 08:05 Dose: 40 mg Documented By: STEVO Sodium Chloride (0.9 % Sodium Chloride Flush 3 Ml Syringe) 3 ml IVFLUSH QSHIFT [facility] Last Admin: 06/02/25 08:05 Dose: 3 ml Documented By: STEVO Spironolactone (Spironolactone 25 Mg Tablet) 25 mg PO DAILY [facility]; Protocol On Hold: 06/02/25 11:26 Last Admin: 06/02/25 08:05 Dose: 25 mg Documented By: STEVO Trazodone HCl (Trazodone Hcl 50 Mg Tablet) 50 mg PO BEDTIME [facility] Last Admin: 06/01/25 21:42 Dose: 50 mg Documented By: MARIAELENA Labs 06/02/25 10:42 06/02/25 10:42 Labs: Laboratory Results - last 24 hr 06/02/25 06/02/25 10:23 10:42 MCV 91.5 MCH 31.6 MCHC 34.5 RDW 13.1 Plt Count 212 MPV 9.4 Absolute Nucleated RBC 0.000 Nucleated RBC % (auto) 0.0 Anion Gap 12 Estim Creat Clear Calc 23.5 Estimated GFR 32 POC Glucose 155 H Random Glucose 142 H Calcium 9.0 D Assessment and Plan (1) Sinus pause: Status: Acute (2) Femur fracture: Status: Acute Plan This is a 84 year old female with history of HTN admitted after a fall and sustaining a right femur fracture. s/p right femur retrograde IM Nail 05/31 Hypotension previously bp high, now low H/H stable hold lisinopril, aldactone IVF follow BP closely PARUL ?due to volume depletion hold aldactone, lisinopril IVF follow renal function Hyponatremia ?due to pain/volume depletion check urine studies IVF repeat this afternoon if no improvement, nephrology consult Right Femur fracture secondary to Fall nondisplaced oblique fracture s/p right femur retrograde IM Nail 05/31 Orthopedic f/u Continue pain mgmnt Lovenox for dvt ppx begin PT/OT for right femur retrograde IM Nail - WBAT Dispo planning- plan for acute rehab Sinus pause Pt had 6-8 seconds episode of asystole during right femur retrograde IM Nail procedure no further episodes echo with preserved EF discussed cardiology, monitor overnight on telemetry, no further pauses noted on telemetry outpatient monitoring specialist recommended; should call cardiology office when getting ready for d/c from rehab and they will coordinate the monitoring specialist Hypertension with elevated blood pressure readings Pain management now with hypotension hold bp meds and follow bp closely Neurogenic bladder continue Myrbetric GERD PPI HLD statin Mental health continue home medications DVT prophylaxis with lovenox 4 weeks post op Full code dispo: acute rehab when medically stable Quality Stroke Does the patient have a stroke diagnosis?: No VTE Prior VTE?: No VTE Risk Level:: Medical - moderate - high VTE Device Contraindication: N/A - Device Ordered VTE Drug Contraindication: Treatment Not Indicated
[2025-06-02 18:29] LABS: Anion Gap 14 (12-20); Blood Urea Nitrogen 45 mg/dL (9-16); Calcium 8.7 mg/dL (8.4-10.2); Carbon Dioxide 19 mmol/L (22-29); Chloride 104 mmol/L (96-108); Creatinine Clr Calc Pharmacy 19.6; Estimated Glomerular Filt Rate 26; Potassium 5.0 mmol/L (3.3-5.1); Sodium 132 mmol/L (135-145)
[2025-06-02] MEDS: Latanoprost 0.005 % Ophth Sol 2.5 ML DROPS 1 DROP EYE-BOTH (20:16)
[2025-06-03] VITALS (7 sets, daily range): BP systolic 131–144; BP diastolic 60–68; PULSE 77–88; RESP 16–21; TEMP 36.7–37.6; O2SAT 93–95
[2025-06-03] MEDS: Lactated Ringers 1,000 ML 100 ML IVCONT ×2 (05:56→15:05)
[2025-06-03 08:18] LABS: Anion Gap 13 (12-20); Blood Urea Nitrogen 48 mg/dL (9-16); Calcium 8.7 mg/dL (8.4-10.2); Carbon Dioxide 18 mmol/L (22-29); Chloride 103 mmol/L (96-108); Creatinine Clr Calc Pharmacy 21.5; Estimated Glomerular Filt Rate 29; Potassium 4.4 mmol/L (3.3-5.1); Sodium 130 mmol/L (135-145)
--- NOTE | 2025-06-03 08:28 | PM.PNORT ---
Subjective Subjective Date of Service: 06/03/25 Interval history: POD3 s/p right femur retrograde IM Nail Patient is resting in bed comfortably No overnight events Pain is managed No additional complaints Physical Exam Vital Signs: Vital Signs: Last Vital Signs Temp 98.4 F 06/03/25 03:10 Pulse 88 06/03/25 03:10 Resp 16 06/03/25 03:10 BP 144/65 H 06/03/25 03:10 Pulse Ox 93 06/03/25 03:10 O2 Del Method Room Air 06/03/25 03:10 O2 Flow Rate 2 05/31/25 16:35 BMI result Body Mass Index 26.3 Const: General: cooperative, healthy appearing and no acute distress Resp: Effort & Inspection: normal respiratory effort and able to speak in complete sentences Extrem: Other: right lower extremity dressing is c/d/i. Able to dorsi/plantar flex. Calf is supple and nontender. Sensation intact. Pedal pulse intact. Psych: Appearance: grossly normal Mental Status: mental status grossly normal Attitude: cooperative Procedures Date of Service Date of Service: 06/03/25 Progress Note: A&P Assessment and plan (1) Femur fracture: Status: Acute Plan Continue pain mgmnt Continue Lovenox for dvt ppx Continue PT/OT for right femur retrograde IM Nail - WBAT, PT recommending acute rehab Dispo planning-Pending PT eval, pain mgmnt, case management, able to discharge once medically cleared Time Spent With Patient Time: Total time managing care of this patient today ____ minutes. Quality Stroke Does the patient have a stroke diagnosis?: No VTE Prior VTE?: No VTE Risk Level:: Medical - moderate - high VTE Device Contraindication: N/A - Device Ordered VTE Drug Contraindication: Treatment Not Indicated
[2025-06-03] MEDS: Mirabegron 50 MG TAB.ER.24H PO (09:02)
--- NOTE | 2025-06-03 10:27 | MHC.CM.PN ---
Per ROUNDS, Patient is not yet medically cleared for dc (Diarrhea & PARUL).
--- NOTE | 2025-06-03 12:04 | HO.PM.IMPN ---
Subjective Subjective Date of Service: 06/03/25 Interval History: seen and examined this morning follow up POD3 s/p right femur IMN, diarrhea, PARUL, hyponatremia pt with persistent diarrhea overnight, denies abdominal pain reports not feeling well Review of Systems Review of Systems: Yes all other systems are reviewed and are negative Constitutional Constitutional: Denies chills and Denies fever(s) Cardiovascular Cardiovascular: Denies chest pain, Denies palpitations and Denies dyspnea Respiratory Respiratory: Denies cough and Denies dyspnea Gastrointestinal Gastrointestinal: Reports diarrhea Endocrine Endocrine: Denies palpitations Physical Exam Vital Signs: Vital Signs: Last Vital Signs Temp 99.6 F 06/03/25 08:00 Pulse 86 06/03/25 09:02 Resp 21 H 06/03/25 08:00 BP 131/60 06/03/25 09:02 Pulse Ox 95 06/03/25 08:00 O2 Del Method Room Air 06/03/25 08:00 O2 Flow Rate 2 05/31/25 16:35 BMI result Body Mass Index 26.3 Const: General: cooperative, alert and awake Nutritional Appearance: average body habitus Orientation/consciousness: patient oriented x3 Resp: Effort & Inspection: normal respiratory effort, able to speak in complete sentences, no respiratory distress and no use of accessory muscles Auscultation: clear to auscultation bilaterally Cardio: Rate: regular rate GI: Other: left lower quadrant tenderness on palpation Inspection: No distended Palpation (GI): Soft to palpation Neuro: Other: grossly non-focal General: patient oriented x3, moves all extremities and CN's II-XI intact bilaterally Extrem: Other: RLE dressing clean and dry General: No pedal edema Objective Data Active Medications Acetaminophen (Acetaminophen 325 Mg Tablet) 650 mg PO Q6H PRN PRN Reason: Pain, Mild 1-3,fever,headache Amlodipine Besylate (Amlodipine Besylate 5 Mg Tablet) 5 mg PO DAILY [facility] Last Admin: 06/03/25 09:03 Dose: 5 mg Documented By: STEVO Benzocaine (Throat Lozenge, Medicated Lozenge) 1 lozenge MUCOUS MEM Q2H PRN PRN Reason: Sore Throat Last Admin: 06/01/25 22:52 Dose: 1 lozenge Documented By: MARIAELENA Calcium Carbonate (Calcium Carbonate 750 Mg Tab.Chew) 750 mg PO Q4H PRN PRN Reason: Heartburn Carvedilol (Carvedilol 12.5 Mg Tablet) 12.5 mg PO BID [facility]; Protocol Last Admin: 06/03/25 09:02 Dose: 12.5 mg Documented By: STEVO Docusate Sodium (Docusate Sodium 100 Mg Capsule) 100 mg PO DAILY PRN PRN Reason: Constipation Enoxaparin Sodium (Enoxaparin Sodium 30 Mg/0.3 Ml Syringe) 30 mg SUBCUT Q24H [facility] Last Admin: 06/02/25 14:56 Dose: 30 mg Documented By: STEVO Escitalopram Oxalate (Escitalopram Oxalate 20 Mg Tablet) 20 mg PO DAILY [facility] Last Admin: 06/03/25 09:03 Dose: 20 mg Documented By: STEVO Hydralazine HCl (Hydralazine Hcl 20 Mg/Ml Vial) 5 mg IVPUSH Q6H PRN; Protocol PRN Reason: SBP>190 Hydroxyzine HCl (Hydroxyzine Hcl 10 Mg Tablet) 10 mg PO BID [facility] Last Admin: 06/03/25 09:03 Dose: 10 mg Documented By: STEVO Cefazolin Sodium/Dextrose (Ancef) 2 gm in 50 mls @ 100 mls/hr IV POSTOP@1000 [facility] Last Infusion: 06/03/25 09:42 Dose: Infused Documented By: STEVO Lactated Ringer's (Lr) 1,000 mls @ 100 mls/hr IVCONT .Q10H [facility] Last Admin: 06/03/25 05:56 Dose: 100 mls/hr Documented By: TRE Ketorolac Tromethamine (Ketorolac Tromethamine 30 Mg/Ml Vial) 30 mg IVPUSH Q6H PRN PRN Reason: Pain, Mild (Pain Scale 1-3) Stop: 06/04/25 17:22 Last Admin: 06/01/25 08:28 Dose: 30 mg Documented By: PATRICIA Latanoprost (Latanoprost 0.005 % Ophth Bruna 2.5 Ml Drops) 1 drop EYE-BOTH BEDTIME [facility] Last Admin: 06/02/25 20:16 Dose: 1 drop Documented By: TRE Lisinopril (Lisinopril 20 Mg Tablet) 20 mg PO DAILY [facility] On Hold: 06/02/25 11:26 Last Admin: 06/02/25 08:05 Dose: 20 mg Documented By: STEVO Magnesium Hydroxide (Milk Of Magnesia 30 Ml Oral.Susp) 30 ml PO DAILY PRN PRN Reason: Constipation Melatonin (Melatonin 3 Mg Tablet) 6 mg PO BEDTIME PRN PRN Reason: Insomnia Last Admin: 05/31/25 02:04 Dose: 6 mg Documented By: GREY Mirabegron (Mirabegron 50 Mg Tab.Er.24h) 50 mg PO DAILY [facility] Last Admin: 06/03/25 09:02 Dose: 50 mg Documented By: STEVO Morphine Sulfate (Morphine Sulfate 4 Mg/Ml Cartridge) 2 mg IVPUSH Q4H PRN; Protocol PRN Reason: Pain, Severe (Pain Scale 7-10) Last Admin: 05/30/25 22:45 Dose: 2 mg Documented By: OLIVIA Non-Formulary Medication (Brinzolamide-Brimonidine [Simbrinza]) 1 drop EYE-BOTH TID [facility] Omeprazole (Omeprazole 40 Mg Capsule.Dr) 40 mg PO DAILY@0630 [facility] Last Admin: 06/03/25 05:56 Dose: 40 mg Documented By: TRE Ondansetron HCl (Ondansetron Hcl 4 Mg/2 Ml Vial) 4 mg IVPUSH Q8H PRN PRN Reason: Nausea and Vomiting Last Admin: 06/02/25 09:52 Dose: 4 mg Documented By: STEVO Polyethylene Glycol (Polyethylene Glycol 3350 17 Gm Powd.Pack) 17 gm PO DAILY PRN PRN Reason: Constipation Pravastatin Sodium (Pravastatin Sodium 40 Mg Tablet) 40 mg PO DAILY [facility] Last Admin: 06/03/25 09:03 Dose: 40 mg Documented By: STEVO Sodium Chloride (0.9 % Sodium Chloride Flush 3 Ml Syringe) 3 ml IVFLUSH QSHIFT [facility] Last Admin: 06/03/25 09:03 Dose: Not Given Documented By: STEVO Non-Admin Reason: IV Running Spironolactone (Spironolactone 25 Mg Tablet) 25 mg PO DAILY [facility]; Protocol On Hold: 06/02/25 11:26 Last Admin: 06/02/25 08:05 Dose: 25 mg Documented By: HO.ARTING Trazodone HCl (Trazodone Hcl 50 Mg Tablet) 50 mg PO BEDTIME [facility] Last Admin: 06/02/25 20:16 Dose: 50 mg Documented By: TRE Labs 06/02/25 10:42 06/03/25 07:42 Labs: Laboratory Results - last 24 hr 06/02/25 06/02/25 06/03/25 12:42 18:02 07:42 Hold Purple Top SEE NOTE Anion Gap 14 13 Estim Creat Clear Calc 19.6 21.5 Estimated GFR 26 29 Random Glucose 128 H 121 H Calcium 8.7 8.7 Urine Osmolality 267 L Ur Random Sodium 62.0 Assessment and Plan (1) Femur fracture: Status: Acute (2) Chronic hyponatremia: Status: Acute Plan This is a 84 year old female with history of HTN admitted after a fall and sustaining a right femur fracture. s/p right femur retrograde IM Nail 05/31 now with diarrhea, PARUL, hyponatremia Hypotension bp improved with IVF hold lisinopril, aldactone continue IVF follow BP closely diarrhea stool studies ordered but so far uncollected will check CT a/p PARUL ?due to volume depletion from diarrhea hold aldactone, lisinopril IVF follow BMP nephrology consult Hyponatremia ?due to pain/volume depletion check urine studies continue IVF nephrology consult Right Femur fracture secondary to Fall s/p right femur retrograde IM Nail 05/31 Orthopedic f/u Continue pain mgmnt Lovenox for dvt ppx begin PT/OT for right femur retrograde IM Nail - WBAT Dispo - plan for acute rehab Sinus pause Pt had 6-8 seconds episode of asystole during right femur retrograde IM Nail procedure no further episodes echo with preserved EF discussed cardiology, monitor overnight on telemetry, no further pauses noted on telemetry outpatient front desk monitor recommended; should call cardiology office when getting ready for d/c from rehab and they will coordinate the front desk monitor Hypertension with elevated blood pressure readings had high bp likely due to pain, then low bp bp meds on hold - follow bp closely Neurogenic bladder continue Myrbetric GERD PPI HLD statin Mental health continue home medications DVT prophylaxis with lovenox 4 weeks post op (renally dosed currently) Full code dispo: acute rehab when medically stable Quality Stroke Does the patient have a stroke diagnosis?: No VTE Prior VTE?: No VTE Risk Level:: Medical - moderate - high VTE Device Contraindication: N/A - Device Ordered VTE Drug Contraindication: Treatment Not Indicated
[2025-06-03] MEDS: metroNIDAZOLE/NS 500 MG/100 ML PIGGYBACK 100 MG IV ×2 (12:40→21:20)
[2025-06-03 13:12] LABS: CDiff Gene PCR NEGATIVE (Negative)
[2025-06-03 13:41] LABS: E. coli EAEC Not Detected (Not Detect.); E. coli EPEC Not Detected (Not Detect.); E. coli ETEC Not Detected (Not Detect.); E. coli STEC Not Detected (Not Detect.); Shigella sp./EIEC Not Detected (Not Detect.)
--- NOTE | 2025-06-03 15:56 | PM.GICN ---
History of Present Illness Data of Consult Service Date: 06/03/25 Requesting physician: Raine Jose Primary Care Provider: Sailaja Shah MD [facility] Reason for consult: Colitis This is an 84-year-old female with past medical history of osteoarthritis, hypertension, who was admitted to the hospital on 05/31/2025 for distal right femur fracture status post internal fixation 06/01/2025. Course complicated by significant sinus pause lasting 6-8 seconds intra-operatively. Gastroenterology has been consulted today for abdominal pain and colitis on CT abdomen and pelvis. History obtained from the patient, who states that since the surgery, she has had very poor appetite with nausea. Since yesterday has also been noticing increase in her lower abdominal pain with cramping N,V and diarrhea. Had vomiting yest. Had small amount of loose stools today, which she says were dark . No fevers or chills. Labs without leukocytosis. Chem 7 with hyponatremia and PARUL. C diff and GI panel checked by hospitalist which is negative. CT abd/pel 1. Segmental colitis involving the mid transverse colon, splenic flexure, descending colon and proximal sigmoid colon. This could be infectious, inflammatory, or possibly ischemic in etiology given distribution of involvement. 2. There is small volume intraperitoneal ascites. 3. There are heavy vascular calcifications present, including coronary calcifications. Review of Systems Review of Systems: Yes all other systems are reviewed and are negative PMFSH Past Medical History Medical History (Updated 06/03/25 @ 16:52 by Neisha Flores MD) Bilateral cataracts Aortic stenosis Depression Neurogenic bladder Arthritis Chronic pain Hypertension Surgical History Surgical History History of tonsillectomy Previous back surgery Social History Social History Household Members: None Housing: Condominium Do you presently have visiting nurse or other home services: No Alcohol intake: never Patient Tobacco Use Status: Never used Tobacco Advance Directives Date on File: 05/31/25 service: No Current occupational status: retired Meds Allergies Allergy/AdvReac Type Severity Reaction Status Date / Time aspirin Allergy Unknown Hives Verified 05/30/25 13:52 Active Medications: Current Medications Acetaminophen (Acetaminophen 325 Mg Tablet) 650 mg PO Q6H PRN PRN Reason: Pain, Mild 1-3,fever,headache Amlodipine Besylate (Amlodipine Besylate 5 Mg Tablet) 5 mg PO DAILY [facility] Last Admin: 06/03/25 09:03 Dose: 5 mg Benzocaine (Throat Lozenge, Medicated Lozenge) 1 lozenge MUCOUS MEM Q2H PRN PRN Reason: Sore Throat Last Admin: 06/01/25 22:52 Dose: 1 lozenge Calcium Carbonate (Calcium Carbonate 750 Mg Tab.Chew) 750 mg PO Q4H PRN PRN Reason: Heartburn Carvedilol (Carvedilol 12.5 Mg Tablet) 12.5 mg PO BID [facility]; Protocol Last Admin: 06/03/25 09:02 Dose: 12.5 mg Docusate Sodium (Docusate Sodium 100 Mg Capsule) 100 mg PO DAILY PRN PRN Reason: Constipation Enoxaparin Sodium (Enoxaparin Sodium 30 Mg/0.3 Ml Syringe) 30 mg SUBCUT Q24H [facility] Last Admin: 06/03/25 14:03 Dose: 30 mg Escitalopram Oxalate (Escitalopram Oxalate 20 Mg Tablet) 20 mg PO DAILY [facility] Last Admin: 06/03/25 09:03 Dose: 20 mg Hydroxyzine HCl (Hydroxyzine Hcl 10 Mg Tablet) 10 mg PO BID [facility] Last Admin: 06/03/25 09:03 Dose: 10 mg Lactated Ringer's (Lr) 1,000 mls @ 100 mls/hr IVCONT .Q10H [facility] Last Admin: 06/03/25 15:05 Dose: 100 mls/hr Metronidazole (Flagyl) 500 mg in 100 mls @ 100 mls/hr IV Q8H [facility] Last Infusion: 06/03/25 13:40 Dose: Infused Ceftriaxone Sodium 1 gm/ (Sodium Chloride) 50 mls @ 100 mls/hr IV Q24H [facility] Last Infusion: 06/03/25 13:09 Dose: Infused Latanoprost (Latanoprost 0.005 % Ophth Bruna 2.5 Ml Drops) 1 drop EYE-BOTH BEDTIME [facility] Last Admin: 06/02/25 20:16 Dose: 1 drop Lisinopril (Lisinopril 20 Mg Tablet) 20 mg PO DAILY [facility] On Hold: 06/02/25 11:26 Last Admin: 06/02/25 08:05 Dose: 20 mg Magnesium Hydroxide (Milk Of Magnesia 30 Ml Oral.Susp) 30 ml PO DAILY PRN PRN Reason: Constipation Melatonin (Melatonin 3 Mg Tablet) 6 mg PO BEDTIME PRN PRN Reason: Insomnia Last Admin: 05/31/25 02:04 Dose: 6 mg Mirabegron (Mirabegron 50 Mg Tab.Er.24h) 50 mg PO DAILY [facility] Last Admin: 06/03/25 09:02 Dose: 50 mg Morphine Sulfate (Morphine Sulfate 4 Mg/Ml Cartridge) 2 mg IVPUSH Q4H PRN; Protocol PRN Reason: Pain, Severe (Pain Scale 7-10) Last Admin: 05/30/25 22:45 Dose: 2 mg Non-Formulary Medication (Brinzolamide-Brimonidine [Simbrinza]) 1 drop EYE-BOTH TID [facility] Omeprazole (Omeprazole 40 Mg Capsule.Dr) 40 mg PO DAILY@0630 [facility] Last Admin: 06/03/25 05:56 Dose: 40 mg Ondansetron HCl (Ondansetron Hcl 4 Mg/2 Ml Vial) 4 mg IVPUSH Q8H PRN PRN Reason: Nausea and Vomiting Last Admin: 06/02/25 09:52 Dose: 4 mg Polyethylene Glycol (Polyethylene Glycol 3350 17 Gm Powd.Pack) 17 gm PO DAILY PRN PRN Reason: Constipation Pravastatin Sodium (Pravastatin Sodium 40 Mg Tablet) 40 mg PO DAILY [facility] Last Admin: 06/03/25 09:03 Dose: 40 mg Sodium Chloride (0.9 % Sodium Chloride Flush 3 Ml Syringe) [facility] Last Admin: 06/03/25 15:05 Dose: Not Given Spironolactone (Spironolactone 25 Mg Tablet) 25 mg PO DAILY [facility]; Protocol On Hold: 06/02/25 11:26 Last Admin: 06/02/25 08:05 Dose: 25 mg Trazodone HCl (Trazodone Hcl 50 Mg Tablet) 50 mg PO BEDTIME [facility] Last Admin: 06/02/25 20:16 Dose: 50 mg Home Medications ?Medication ?Instructions ?Recorded ?Confirmed ?Last Taken ?Type amlodipine 5 mg-benazepril 20 mg 1 cap PO DAILY 11/16/22 05/30/25 05/30/25 09:00 History capsule citalopram 40 mg tablet 40 mg PO DAILY 06/03/23 12/15/25 12/15/25 09:00 History hydroxyzine HCl 10 mg tablet 10 mg PO BID 11/16/22 05/30/25 05/30/25 09:00 History mirabegron 50 mg tablet,extended 50 mg PO DAILY 11/16/22 05/30/25 05/30/25 09:00 History release 24 hr (Myrbetriq) omeprazole 40 mg capsule,delayed 40 mg PO DAILY 11/16/22 05/30/25 05/30/25 09:00 History release pravastatin 40 mg tablet 40 mg PO DAILY 11/16/22 05/30/25 05/30/25 09:00 History tramadol 50 mg tablet 50 mg PO QID PRN pain 11/16/22 05/30/25 05/30/25 09:00 History trazodone 50 mg tablet 50 mg PO BEDTIME 11/16/22 05/30/25 05/30/25 09:00 History spironolactone 25 mg tablet 25 mg PO DAILY 03/12/24 05/30/25 05/30/25 09:00 History brinzolamide 1 %-brimonidine 0.2 % 1 drp ophthalmic (eye) TID 05/30/25 05/30/25 05/30/25 09:00 History eye drops,suspension (Simbrinza) cholecalciferol (vitamin D3) 25 25 mcg PO DAILY 05/30/25 05/30/25 05/30/25 09:00 History mcg (1,000 unit) tablet cyanocobalamin (vitamin B-12) 50 50 mcg PO DAILY 05/30/25 05/30/25 05/30/25 09:00 History mcg tablet (Vitamin B-12) latanoprost 0.005 % eye drops 1 drp BEDTIME 05/30/25 05/30/25 05/30/25 09:00 History [id number]-[id number] 8 mg-folic 400 1 tab PO DAILY 05/30/25 05/30/25 05/30/25 09:00 History mcg-K 50 mcg-lutein 300 mcg tablet (Centrum Silver Women) omega-3 fatty acids-fish oil 684 1 cap PO DAILY 05/30/25 05/30/25 05/30/25 09:00 History mg-1,200 mg capsule,delayed release vit C 250 mg-vit E 90 mg-zinc 40 1 tab PO BID 05/30/25 05/30/25 05/30/25 09:00 History mg-copper 1 [id number] capsule (PreserVision AREDS-2) Physical Exam Exam: Exam: Elderly female NAD Pale appearing Abd soft, mildly distended, no TTP, no guarding Vital Signs: Vital Signs: Last Vital Signs Temp 98.8 F 06/03/25 12:47 Pulse 77 06/03/25 12:47 Resp 20 06/03/25 12:47 BP 135/60 06/03/25 12:47 Pulse Ox 93 06/03/25 12:47 O2 Del Method Room Air 06/03/25 12:47 O2 Flow Rate 2 05/31/25 16:35 BMI result Body Mass Index 26.3 Results Labs 06/02/25 10:42 06/03/25 07:42 Labs: BMP 06/02/25 06/03/25 18:02 07:42 Sodium 132 L 130 L Potassium 5.0 4.4 Chloride 104 103 Carbon Dioxide 19 L 18 L BUN 45 H 48 H Creatinine 1.82 H 1.66 H Calcium 8.7 8.7 Assessment and Plan (1) Abdominal pain: Status: Acute (2) Colitis: Status: Acute Plan High suspicion for colon ischemia given recent events. CT images personally reviewed and patient with significant vascular calcification specially at the origin of JIGAR. Infectious colitis not ruled out. Given the recent sinus pauses and ?asystole documented during surgery a repeat diagnostic colo/flex sig remains high risk. Recommend conservative management for now with fluid resuscitation, maintenance of normotension, antibiotics. Abdominal exam is benign at this time Plan: - Check lactate and LDH - Ok for Abx for now - Keep on CLD - Serial abd exams - Low threshold for repeat CT imaging if has significant change in abd exam to r/o worsening ischemia/pneumatosis - Hold off endoscopic eval for now as above Thank you for allowing me to participate in her care. Please do not hesitate to reach out for any questions or concerns Procedures Date of Service Date of Service: 06/03/25
--- NOTE | 2025-06-03 16:30 | PM.CNNEP ---
History of Present Illness Reason for Consult Consult date: 06/03/25 Chief Complaint Chief complaint: HIP FRACTURE History of Present Illness Narrative: 84 year old female with history of HTN admitted after a fall and sustaining a right femur fracture. She is s/p right femur retrograde IM Nail 05/31 now with diarrhea, PARUL, hyponatremia. She had been on lisinopril and aldactone. She also had hypotension. She has been getting IV fluids. Nephrology has been consulted to assist in her clinical care during her current hospital stay Review of Systems Review of Systems Yes all other systems are reviewed and are negative PMFSH Past Medical History Medical History (Updated 06/03/25 @ 16:33 by Bruce Collado MD) Bilateral cataracts Aortic stenosis Depression Neurogenic bladder Arthritis Chronic pain Hypertension Surgical History Surgical History History of tonsillectomy Previous back surgery Social History Social History Household Members: None [facility] Do you presently have visiting nurse or other home services: No Alcohol intake: never Patient Tobacco Use Status: Never used Tobacco Advance Directives Date on File: 05/31/25 service: No Current occupational status: retired Meds Allergies Allergy/AdvReac Type Severity Reaction Status Date / Time aspirin Allergy Unknown Hives Verified 05/30/25 13:52 Active Medications: Current Medications Acetaminophen (Acetaminophen 325 Mg Tablet) 650 mg PO Q6H PRN PRN Reason: Pain, Mild 1-3,fever,headache Amlodipine Besylate (Amlodipine Besylate 5 Mg Tablet) 5 mg PO DAILY [facility] Last Admin: 06/03/25 09:03 Dose: 5 mg Benzocaine (Throat Lozenge, Medicated Lozenge) 1 lozenge MUCOUS MEM Q2H PRN PRN Reason: Sore Throat Last Admin: 06/01/25 22:52 Dose: 1 lozenge Calcium Carbonate (Calcium Carbonate 750 Mg Tab.Chew) 750 mg PO Q4H PRN PRN Reason: Heartburn Carvedilol (Carvedilol 12.5 Mg Tablet) 12.5 mg PO BID [facility]; Protocol Last Admin: 06/03/25 09:02 Dose: 12.5 mg Docusate Sodium (Docusate Sodium 100 Mg Capsule) 100 mg PO DAILY PRN PRN Reason: Constipation Enoxaparin Sodium (Enoxaparin Sodium 30 Mg/0.3 Ml Syringe) 30 mg SUBCUT Q24H [facility] Last Admin: 06/03/25 14:03 Dose: 30 mg Escitalopram Oxalate (Escitalopram Oxalate 20 Mg Tablet) 20 mg PO DAILY [facility] Last Admin: 06/03/25 09:03 Dose: 20 mg Hydroxyzine HCl (Hydroxyzine Hcl 10 Mg Tablet) 10 mg PO BID [facility] Last Admin: 06/03/25 09:03 Dose: 10 mg Lactated Ringer's (Lr) 1,000 mls @ 100 mls/hr IVCONT .Q10H [facility] Last Admin: 06/03/25 15:05 Dose: 100 mls/hr Metronidazole (Flagyl) 500 mg in 100 mls @ 100 mls/hr IV Q8H [facility] Last Infusion: 06/03/25 13:40 Dose: Infused Ceftriaxone Sodium 1 gm/ (Sodium Chloride) 50 mls @ 100 mls/hr IV Q24H [facility] Last Infusion: 06/03/25 13:09 Dose: Infused Latanoprost (Latanoprost 0.005 % Ophth Bruna 2.5 Ml Drops) 1 drop EYE-BOTH BEDTIME [facility] Last Admin: 06/02/25 20:16 Dose: 1 drop Lisinopril (Lisinopril 20 Mg Tablet) 20 mg PO DAILY [facility] On Hold: 06/02/25 11:26 Last Admin: 06/02/25 08:05 Dose: 20 mg Magnesium Hydroxide (Milk Of Magnesia 30 Ml Oral.Susp) 30 ml PO DAILY PRN PRN Reason: Constipation Melatonin (Melatonin 3 Mg Tablet) 6 mg PO BEDTIME PRN PRN Reason: Insomnia Last Admin: 05/31/25 02:04 Dose: 6 mg Mirabegron (Mirabegron 50 Mg Tab.Er.24h) 50 mg PO DAILY [facility] Last Admin: 06/03/25 09:02 Dose: 50 mg Morphine Sulfate (Morphine Sulfate 4 Mg/Ml Cartridge) 2 mg IVPUSH Q4H PRN; Protocol PRN Reason: Pain, Severe (Pain Scale 7-10) Last Admin: 05/30/25 22:45 Dose: 2 mg Non-Formulary Medication (Brinzolamide-Brimonidine [Simbrinza]) 1 drop EYE-BOTH TID [facility] Omeprazole (Omeprazole 40 Mg Capsule.Dr) 40 mg PO DAILY@0630 [facility] Last Admin: 06/03/25 05:56 Dose: 40 mg Ondansetron HCl (Ondansetron Hcl 4 Mg/2 Ml Vial) 4 mg IVPUSH Q8H PRN PRN Reason: Nausea and Vomiting Last Admin: 06/02/25 09:52 Dose: 4 mg Polyethylene Glycol (Polyethylene Glycol 3350 17 Gm Powd.Pack) 17 gm PO DAILY PRN PRN Reason: Constipation Pravastatin Sodium (Pravastatin Sodium 40 Mg Tablet) 40 mg PO DAILY [facility] Last Admin: 06/03/25 09:03 Dose: 40 mg Sodium Chloride (0.9 % Sodium Chloride Flush 3 Ml Syringe) 3 ml IVFLUSH QSHIFT [facility] Last Admin: 06/03/25 15:05 Dose: Not Given Spironolactone (Spironolactone 25 Mg Tablet) 25 mg PO DAILY [facility]; Protocol On Hold: 06/02/25 11:26 Last Admin: 06/02/25 08:05 Dose: 25 mg Trazodone HCl (Trazodone Hcl 50 Mg Tablet) 50 mg PO BEDTIME [facility] Last Admin: 06/02/25 20:16 Dose: 50 mg Home Medications ?Medication ?Instructions ?Recorded ?Confirmed ?Last Taken ?Type amlodipine 5 mg-benazepril 20 mg 1 cap PO DAILY 11/16/22 05/30/25 05/30/25 09:00 History capsule citalopram 40 mg tablet 40 mg PO DAILY 11/16/22 05/30/25 05/30/25 09:00 History hydroxyzine HCl 10 mg tablet 10 mg PO BID 11/16/22 05/30/25 05/30/25 09:00 History mirabegron 50 mg tablet,extended 50 mg PO DAILY 11/16/22 05/30/25 05/30/25 09:00 History release 24 hr (Myrbetriq) omeprazole 40 mg capsule,delayed 40 mg PO DAILY 11/16/22 05/30/25 05/30/25 09:00 History release pravastatin 40 mg tablet 40 mg PO DAILY 11/16/22 05/30/25 05/30/25 09:00 History tramadol 50 mg tablet 50 mg PO QID PRN pain 11/16/22 05/30/25 05/30/25 09:00 History trazodone 50 mg tablet 50 mg PO BEDTIME 11/16/22 05/30/25 05/30/25 09:00 History spironolactone 25 mg tablet 25 mg PO DAILY 03/12/24 05/30/25 05/30/25 09:00 History brinzolamide 1 %-brimonidine 0.2 % 1 drp ophthalmic (eye) TID 05/30/25 05/30/25 05/30/25 09:00 History eye drops,suspension (Simbrinza) cholecalciferol (vitamin D3) 25 25 mcg PO DAILY 05/30/25 05/30/25 05/30/25 09:00 History mcg (1,000 unit) tablet cyanocobalamin (vitamin B-12) 50 50 mcg PO DAILY 05/30/25 05/30/25 05/30/25 09:00 History mcg tablet (Vitamin B-12) latanoprost 0.005 % eye drops 1 drp BEDTIME 05/30/25 05/30/25 05/30/25 09:00 History [id number]-[id number]-qjda 8 mg-folic 400 1 tab PO DAILY 05/30/25 05/30/25 05/30/25 09:00 History mcg-K 50 mcg-lutein 300 mcg tablet (Centrum Silver Women) omega-3 fatty acids-fish oil 684 1 cap PO DAILY 05/30/25 05/30/25 05/30/25 09:00 History mg-1,200 mg capsule,delayed release vit C 250 mg-vit E 90 mg-zinc 40 1 tab PO BID 05/30/25 05/30/25 05/30/25 09:00 History mg-copper 1 [id number] capsule (PreserVision AREDS-2) Physical Exam Vital Signs: Last Vital Signs Temp 98.1 F 06/03/25 15:57 Pulse 82 06/03/25 15:57 Resp 16 06/03/25 15:57 BP 134/62 06/03/25 15:57 Pulse Ox 94 06/03/25 15:57 O2 Del Method Room Air 06/03/25 15:57 O2 Flow Rate 2 05/31/25 16:35 BMI result Body Mass Index 26.3 Const General: comfortable and no acute distress Orientation/consciousness: patient oriented x3 HEENT Head: Yes normocephalic Mouth: Normal oral and palatal mucosa present Eyes EOM: EOMs intact bilaterally Neck Neck: Yes supple Resp Auscultation: clear to auscultation bilaterally Cardio Jugular venous distension: no JVD Rate: regular rate GI Palpation (GI): Soft to palpation Auscultation: normal bowel sounds General: Yes no CVA tenderness Back/Spine/Pelvis Back: no CVA tenderness Skin General skin exam: no rashes or lesions noted Neuro General: patient oriented x3 and moves all extremities Extrem General: Yes no pedal edema Results Lab Results 06/02/25 10:42 06/03/25 07:42 Lab results: Chemistry 06/02/25 06/02/25 06/03/25 10:42 18:02 07:42 Sodium 130 L 132 L 130 L Potassium 4.9 5.0 4.4 Carbon Dioxide 21 L 19 L 18 L BUN 37 H 45 H 48 H Creatinine 1.52 H 1.82 H 1.66 H Calcium 9.0 D 8.7 8.7 Hematology 06/02/25 10:42 WBC 10.3 Hgb 11.9 L Plt Count 212 Urine Studies 06/02/25 12:42 Urine Osmolality 267 L Assessment and Plan (1) PARUL (acute kidney injury): Status: Acute Plan PARUL likely due to tubular injury Needs better hemodynamics ACEI/Diuretics on hold Urine output fair; No NSAID's No reason to suspect GN/AIN No indication for renal replacement C/W rest of current supportive management Procedures Date of Service Date of Service: 06/03/25
[2025-06-03] MEDS: Latanoprost 0.005 % Ophth Sol 2.5 ML DROPS 1 DROP EYE-BOTH (21:25)
[2025-06-04] VITALS (7 sets, daily range): BP systolic 122–153; BP diastolic 58–68; PULSE 69–83; RESP 14–19; TEMP 36.4–37.4; O2SAT 93–97
[2025-06-04] MEDS: Lactated Ringers 1,000 ML 100 ML IVCONT (01:23)
[2025-06-04] MEDS: metroNIDAZOLE/NS 500 MG/100 ML PIGGYBACK 100 MG IV ×3 (04:49→21:01)
[2025-06-04 07:22] LABS: Hematocrit 24.4 % (37.0-47.0); Hemoglobin 8.4 g/dl (12.0-16.0); Imm Gran Abs Auto 0.12 X10*3/uL (0.00-0.03); Imm Gran Pct Auto 0.6 % (0.0-0.4); Lymphocytes Absolute Auto 1.5 X10*3/uL (1.2-4.9); MANUAL DIFF FLAG SCAN; Mean Corpuscular HGB Conc 34.4 g/dl (31.0-35.0); Mean Corpuscular Hemoglobin 31.1 pg (27.0-33.0); Mean Corpuscular Volume 90.4 fL (80.0-98.0); NRBC Abs Auto 0.000 X10*3/uL (0.0-0.012); NRBC Pct Auto 0.0 /100WBC (0.0-0.2); Platelet Count 172 X10*3/uL (160-400); Red Blood Count 2.70 X10*6/uL (4.20-5.50); SCAN SMEAR FLAG 1; White Blood Count 19.1 X10*3/uL (4.8-10.8)
[2025-06-04 07:42] LABS: Anion Gap 12 (12-20); Blood Urea Nitrogen 47 mg/dL (9-16); Calcium 8.5 mg/dL (8.4-10.2); Carbon Dioxide 18 mmol/L (22-29); Chloride 107 mmol/L (96-108); Creatinine Clr Calc Pharmacy 24.1; Estimated Glomerular Filt Rate 33; Magnesium 2.0 mg/dL (1.6-2.6); Potassium 3.8 mmol/L (3.3-5.1); Sodium 133 mmol/L (135-145)
[2025-06-04] MEDS: Mirabegron 50 MG TAB.ER.24H PO (08:54)
--- NOTE | 2025-06-04 12:56 | P.PNIM_ITS ---
Subjective Subjective Date of Service: 06/04/25 Interval History: seen and examined this morning follow up s/p right femur IMN, diarrhea, PARUL, hyponatremia pt with persistent diarrhea overnight, denies abdominal pain reports not feeling well Review of Systems Review of Systems: Yes all other systems are reviewed and are negative Constitutional Constitutional: Denies chills and Denies fever(s) Cardiovascular Cardiovascular: Denies chest pain, Denies palpitations and Denies dyspnea Respiratory Respiratory: Denies cough and Denies dyspnea Gastrointestinal Gastrointestinal: Reports diarrhea Endocrine Endocrine: Denies palpitations Physical Exam 2 Exam: Exam: Appearing in no acute distress lung sounds are clear to auscultation heart regular rate rhythm, clear S1, S2 positive bowel sounds, abdomen is soft, nontender neuro patient is alert x3, no focal deficits Vital Signs: Vital Signs: Last Vital Signs Temp 98.2 F 06/04/25 11:14 Pulse 69 06/04/25 11:14 Resp 16 06/04/25 11:14 BP 123/59 L 06/04/25 11:14 Pulse Ox 93 06/04/25 11:14 O2 Del Method Room Air 06/04/25 11:14 O2 Flow Rate 2 05/31/25 16:35 BMI result Body Mass Index 26.3 Objective Data Active Medications Acetaminophen (Acetaminophen 325 Mg Tablet) 650 mg PO Q6H PRN PRN Reason: Pain, Mild 1-3,fever,headache Amlodipine Besylate (Amlodipine Besylate 5 Mg Tablet) 5 mg PO DAILY [facility] Last Admin: 06/04/25 08:55 Dose: 5 mg Documented By: LUCIANA Benzocaine (Throat Lozenge, Medicated Lozenge) 1 lozenge MUCOUS MEM Q2H PRN PRN Reason: Sore Throat Last Admin: 06/01/25 22:52 Dose: 1 lozenge Documented By: MARIAELENA Calcium Carbonate (Calcium Carbonate 750 Mg Tab.Chew) 750 mg PO Q4H PRN PRN Reason: Heartburn Carvedilol (Carvedilol 12.5 Mg Tablet) 12.5 mg PO BID [facility]; Protocol Last Admin: 06/04/25 08:55 Dose: 12.5 mg Documented By: LUCIANA Docusate Sodium (Docusate Sodium 100 Mg Capsule) 100 mg PO DAILY PRN PRN Reason: Constipation Enoxaparin Sodium (Enoxaparin Sodium 30 Mg/0.3 Ml Syringe) 30 mg SUBCUT Q24H [facility] Last Admin: 06/03/25 14:03 Dose: 30 mg Documented By: STEVO Escitalopram Oxalate (Escitalopram Oxalate 20 Mg Tablet) 20 mg PO DAILY [facility] Last Admin: 06/04/25 08:55 Dose: 20 mg Documented By: LUCIANA Hydroxyzine HCl (Hydroxyzine Hcl 10 Mg Tablet) 10 mg PO BID [facility] Last Admin: 06/04/25 08:55 Dose: 10 mg Documented By: LUCIANA Metronidazole (Flagyl) 500 mg in 100 mls @ 100 mls/hr IV Q8H [facility] Last Infusion: 06/04/25 05:59 Dose: Infused Documented By: EDUARDO Ceftriaxone Sodium 1 gm/ (Sodium Chloride) 50 mls @ 100 mls/hr IV Q24H [facility] Last Infusion: 06/03/25 13:09 Dose: Infused Documented By: STEVO Latanoprost (Latanoprost 0.005 % Ophth Bruna 2.5 Ml Drops) 1 drop EYE-BOTH BEDTIME [facility] Last Admin: 06/03/25 21:25 Dose: 1 drop Documented By: CHEYENNE Lisinopril (Lisinopril 20 Mg Tablet) 20 mg PO DAILY [facility] On Hold: 06/02/25 11:26 Last Admin: 06/02/25 08:05 Dose: 20 mg Documented By: STEVO Magnesium Hydroxide (Milk Of Magnesia 30 Ml Oral.Susp) 30 ml PO DAILY PRN PRN Reason: Constipation Melatonin (Melatonin 3 Mg Tablet) 6 mg PO BEDTIME PRN PRN Reason: Insomnia Last Admin: 05/31/25 02:04 Dose: 6 mg Documented By: GREY Mirabegron (Mirabegron 50 Mg Tab.Er.24h) 50 mg PO DAILY [facility] Last Admin: 06/04/25 08:54 Dose: 50 mg Documented By: LUCIANA Morphine Sulfate (Morphine Sulfate 4 Mg/Ml Cartridge) 2 mg IVPUSH Q4H PRN; Protocol PRN Reason: Pain, Severe (Pain Scale 7-10) Last Admin: 05/30/25 22:45 Dose: 2 mg Documented By: OLIVIA Non-Formulary Medication (Brinzolamide-Brimonidine [Simbrinza]) 1 drop EYE-BOTH TID [facility] Omeprazole (Omeprazole 40 Mg Capsule.Dr) 40 mg PO DAILY@0630 [facility] Last Admin: 06/04/25 06:01 Dose: 40 mg Documented By: EDUARDO Ondansetron HCl (Ondansetron Hcl 4 Mg/2 Ml Vial) 4 mg IVPUSH Q8H PRN PRN Reason: Nausea and Vomiting Last Admin: 06/02/25 09:52 Dose: 4 mg Documented By: STEVO Polyethylene Glycol (Polyethylene Glycol 3350 17 Gm Powd.Pack) 17 gm PO DAILY PRN PRN Reason: Constipation Pravastatin Sodium (Pravastatin Sodium 40 Mg Tablet) 40 mg PO DAILY [facility] Last Admin: 06/04/25 08:55 Dose: 40 mg Documented By: LUCIANA Sodium Chloride (0.9 % Sodium Chloride Flush 3 Ml Syringe) 3 ml IVFLUSH QSHIFT [facility] Last Admin: 06/04/25 08:56 Dose: Not Given Documented By: LUCIANA Non-Admin Reason: IV Running Spironolactone (Spironolactone 25 Mg Tablet) 25 mg PO DAILY [facility]; Protocol On Hold: 06/02/25 11:26 Last Admin: 06/02/25 08:05 Dose: 25 mg Documented By: STEVO Trazodone HCl (Trazodone Hcl 50 Mg Tablet) 50 mg PO BEDTIME [facility] Last Admin: 06/03/25 21:20 Dose: 50 mg Documented By: CHEYENNE Labs 06/04/25 06:54 06/04/25 06:54 Labs: Laboratory Results - last 24 hr 06/03/25 06/03/25 06/03/25 07:42 11:57 15:41 MCV MCH MCHC RDW Plt Count MPV Immature Gran % (Auto) Neut % (Auto) Lymph % (Auto) Rusk % (Auto) Eos % (Auto) Baso % (Auto) Lymph # (Auto) [place] # (Auto) Eos # (Auto) Baso # (Auto) Abs Immat Gran (auto) Absolute Neuts (auto) Absolute Nucleated RBC Nucleated RBC % (auto) Smear Tech's Comments Anion Gap Estim Creat Clear Calc Estimated GFR Random Glucose Lactic Acid 1.3 Calcium Magnesium Lactate Dehydrogenase 259 H Stl C. cayetanensis PCR Not Detected Stool Rotavirus A PCR Not Detected Stl Adenov F 40/41 PCR Not Detected Stool Astrovirus (PCR) Not Detected Stool Campylobacter PCR Not Detected Stool Cryptosporidium PCR Not Detected Stl Sh Tox Pr E STEC PCR Not Detected Stool E coli O157 PCR Not applicable Stl Enterotoxigenic E PCR Not Detected Stool EPEC (PCR) Not Detected Stool EAEC (PCR) Not Detected Stl E. histolytica PCR Not Detected Stool Giardia Lamblia PCR Not Detected Stl P. shigelloides PCR Not Detected Stool Salmonella PCR Not Detected Stool Sapovirus (PCR) Not Detected Stl Shigella/EIEC PCR Not Detected St Y.enterocolitica PCR Not Detected Stool Vibrio (PCR) Not Detected Stl Vibrio cholerae PCR Not Detected Stl Norovirus GI/GII PCR Not Detected C. difficile Tox B Gene NEGATIVE 06/04/25 06:54 MCV 90.4 MCH 31.1 MCHC 34.4 RDW 13.2 Plt Count 172 MPV 10.0 Immature Gran % (Auto) 0.6 H Neut % (Auto) 80.9 H Lymph % (Auto) 7.7 L Rusk % (Auto) 8.5 Eos % (Auto) 2.0 Baso % (Auto) 0.3 Lymph # (Auto) 1.5 Rusk # (Auto) 1.6 H Eos # (Auto) 0.4 Baso # (Auto) 0.1 Abs Immat Gran (auto) 0.12 H Absolute Neuts (auto) 15.4 H Absolute Nucleated RBC 0.000 Nucleated RBC % (auto) 0.0 Smear Tech's Comments VERIFIED Anion Gap 12 Estim Creat Clear Calc 24.1 Estimated GFR 33 Random Glucose 98 Lactic Acid Calcium 8.5 Magnesium 2.0 Lactate Dehydrogenase Stl C. cayetanensis PCR Stool Rotavirus A PCR Stl Adenov F 40/41 PCR Stool Astrovirus (PCR) Stool Campylobacter PCR Stool Cryptosporidium PCR Stl Sh Tox Pr E STEC PCR Stool E coli O157 PCR Stl Enterotoxigenic E PCR Stool EPEC (PCR) Stool EAEC (PCR) Stl E. histolytica PCR Stool Giardia Lamblia PCR Stl P. shigelloides PCR Stool Salmonella PCR Stool Sapovirus (PCR) Stl Shigella/EIEC PCR St Y.enterocolitica PCR Stool Vibrio (PCR) Stl Vibrio cholerae PCR Stl Norovirus GI/GII PCR C. difficile Tox B Gene Assessment and Plan (1) Femur fracture: Status: Acute (2) Chronic hyponatremia: Status: Acute Plan 84 year old female with history of HTN admitted after a fall and sustaining a right femur fracture. s/p right femur retrograde IM Nail 05/31 now with diarrhea, PARUL, hyponatremia Hypotension bp improved with IVF hold lisinopril, aldactone continue IVF follow BP closely Colitis with diarrhea Seen on abd ct stool studies negative continue rocephin and flagyl PARUL. Improving ?due to volume depletion from diarrhea hold aldactone, lisinopril IVF follow BMP nephrology consult Hyponatremia, Improving ?due to pain/volume depletion continue IVF nephrology consult Right Femur fracture secondary to Fall s/p right femur retrograde IM Nail 05/31 Orthopedic f/u Continue pain mgmnt Lovenox for dvt ppx begin PT/OT for right femur retrograde IM Nail - WBAT Dispo - plan for acute rehab Sinus pause. No episodes Pt had 6-8 seconds episode of asystole during right femur retrograde IM Nail procedure no further episodes echo with preserved EF discussed cardiology, monitor overnight on telemetry, no further pauses noted on telemetry outpatient farmer vegetable recommended; should call cardiology office when getting ready for d/c from rehab and they will coordinate the farmer vegetable Hypertension with elevated blood pressure readings had high bp likely due to pain, then low bp bp meds on hold - follow bp closely Neurogenic bladder continue Myrbetric GERD PPI HLD statin Mental health continue home medications DVT prophylaxis with lovenox 4 weeks post op (renally dosed currently) Full code dispo: acute rehab when medically stable Quality Stroke Does the patient have a stroke diagnosis?: No VTE Prior VTE?: No VTE Risk Level:: Medical - moderate - high VTE Device Contraindication: N/A - Device Ordered VTE Drug Contraindication: Treatment Not Indicated
[2025-06-04] MEDS: 0.9 % Sodium Chloride Flush 3 ML SYRINGE IVFLUSH (21:01)
[2025-06-04] MEDS: Latanoprost 0.005 % Ophth Sol 2.5 ML DROPS 1 DROP EYE-BOTH (21:09)
[2025-06-05 04:00] VITALS: BP 156/66; PULSE 65; RESP 17; TEMP 36.1; O2SAT 100
[2025-06-05] MEDS: metroNIDAZOLE/NS 500 MG/100 ML PIGGYBACK 100 MG IV ×3 (05:29→20:37)
[2025-06-05 07:53] VITALS: BP 179/71; PULSE 66; RESP 14; TEMP 36.7; O2SAT 100
[2025-06-05] MEDS: Mirabegron 50 MG TAB.ER.24H PO (08:05)
[2025-06-05] MEDS: 0.9 % Sodium Chloride Flush 3 ML SYRINGE IVFLUSH ×2 (08:05→20:44)
--- NOTE | 2025-06-05 08:25 | P.PNIM_ITS ---
Subjective Subjective Date of Service: 06/05/25 Interval History: seen and examined this morning follow up s/p right femur IMN, diarrhea, PARUL, hyponatremia small amount of stool in rectal tube, plan for removal unmotivated to move and get up Review of Systems Review of Systems: Yes all other systems are reviewed and are negative Constitutional Constitutional: Denies chills and Denies fever(s) Cardiovascular Cardiovascular: Denies chest pain, Denies palpitations and Denies dyspnea Respiratory Respiratory: Denies cough and Denies dyspnea Gastrointestinal Gastrointestinal: Reports diarrhea Endocrine Endocrine: Denies palpitations Physical Exam 2 Exam: Exam: Appearing in no acute distress lung sounds are clear to auscultation heart regular rate rhythm, clear S1, S2 positive bowel sounds, abdomen is soft, nontender neuro patient is alert x3, no focal deficits Vital Signs: Vital Signs: Last Vital Signs Temp 98.1 F 06/05/25 07:53 Pulse 66 06/05/25 07:53 Resp 14 06/05/25 07:53 BP 179/71 H 06/05/25 07:53 Pulse Ox 100 06/05/25 07:53 O2 Del Method Nasal Cannula 06/05/25 07:53 O2 Flow Rate 3 06/05/25 07:53 BMI result Body Mass Index 26.3 Objective Data Active Medications Acetaminophen (Acetaminophen 325 Mg Tablet) 650 mg PO Q6H PRN PRN Reason: Pain, Mild 1-3,fever,headache Last Admin: 06/04/25 22:06 Dose: 650 mg Documented By: YUN Amlodipine Besylate (Amlodipine Besylate 5 Mg Tablet) 5 mg PO DAILY [facility] Last Admin: 06/05/25 08:05 Dose: 5 mg Documented By: JOSE Benzocaine (Throat Lozenge, Medicated Lozenge) 1 lozenge MUCOUS MEM Q2H PRN PRN Reason: Sore Throat Last Admin: 06/01/25 22:52 Dose: 1 lozenge Documented By: MARIAELENA Calcium Carbonate (Calcium Carbonate 750 Mg Tab.Chew) 750 mg PO Q4H PRN PRN Reason: Heartburn Carvedilol (Carvedilol 12.5 Mg Tablet) 12.5 mg PO BID [facility]; Protocol Last Admin: 06/05/25 08:05 Dose: 12.5 mg Documented By: JOSE Docusate Sodium (Docusate Sodium 100 Mg Capsule) 100 mg PO DAILY PRN PRN Reason: Constipation Enoxaparin Sodium (Enoxaparin Sodium 30 Mg/0.3 Ml Syringe) 30 mg SUBCUT Q24H [facility] Last Admin: 06/04/25 13:20 Dose: 30 mg Documented By: LUCIANA Escitalopram Oxalate (Escitalopram Oxalate 20 Mg Tablet) 20 mg PO DAILY [facility] Last Admin: 06/05/25 08:05 Dose: 20 mg Documented By: JOSE Hydroxyzine HCl (Hydroxyzine Hcl 10 Mg Tablet) 10 mg PO BID [facility] Last Admin: 06/05/25 08:05 Dose: 10 mg Documented By: JOSE Metronidazole (Flagyl) 500 mg in 100 mls @ 100 mls/hr IV Q8H [facility] Last Infusion: 06/05/25 06:35 Dose: Infused Documented By: YUN Ceftriaxone Sodium 1 gm/ (Sodium Chloride) 50 mls @ 100 mls/hr IV Q24H [facility] Last Infusion: 06/04/25 14:01 Dose: Infused Documented By: LUCIANA Latanoprost (Latanoprost 0.005 % Ophth Bruna 2.5 Ml Drops) 1 drop EYE-BOTH BEDTIME [facility] Last Admin: 06/04/25 21:09 Dose: 1 drop Documented By: YUN Lisinopril (Lisinopril 20 Mg Tablet) 20 mg PO DAILY [facility] On Hold: 06/02/25 11:26 Last Admin: 06/02/25 08:05 Dose: 20 mg Documented By: STEVO Magnesium Hydroxide (Milk Of Magnesia 30 Ml Oral.Susp) 30 ml PO DAILY PRN PRN Reason: Constipation Melatonin (Melatonin 3 Mg Tablet) 6 mg PO BEDTIME PRN PRN Reason: Insomnia Last Admin: 06/05/25 01:21 Dose: 6 mg Documented By: YUN Mirabegron (Mirabegron 50 Mg Tab.Er.24h) 50 mg PO DAILY [facility] Last Admin: 06/05/25 08:05 Dose: 50 mg Documented By: JOSE Non-Formulary Medication (Brinzolamide-Brimonidine [Simbrinza]) 1 drop EYE-BOTH TID [facility] Omeprazole (Omeprazole 40 Mg Capsule.Dr) 40 mg PO DAILY@0630 [facility] Last Admin: 06/05/25 05:29 Dose: 40 mg Documented By: YUN Ondansetron HCl (Ondansetron Hcl 4 Mg/2 Ml Vial) 4 mg IVPUSH Q8H PRN PRN Reason: Nausea and Vomiting Last Admin: 06/02/25 09:52 Dose: 4 mg Documented By: STEVO Polyethylene Glycol (Polyethylene Glycol 3350 17 Gm Powd.Pack) 17 gm PO DAILY PRN PRN Reason: Constipation Pravastatin Sodium (Pravastatin Sodium 40 Mg Tablet) 40 mg PO DAILY [facility] Last Admin: 06/05/25 08:05 Dose: 40 mg Documented By: JOSE Sodium Chloride (0.9 % Sodium Chloride Flush 3 Ml Syringe) 3 ml IVFLUSH QSHIFT [facility] Last Admin: 06/05/25 08:05 Dose: 3 ml Documented By: JOSE Spironolactone (Spironolactone 25 Mg Tablet) 25 mg PO DAILY [facility]; Protocol On Hold: 06/02/25 11:26 Last Admin: 06/02/25 08:05 Dose: 25 mg Documented By: STEVO Trazodone HCl (Trazodone Hcl 50 Mg Tablet) 50 mg PO BEDTIME [facility] Last Admin: 06/04/25 21:01 Dose: 50 mg Documented By: YUN Labs 06/04/25 06:54 06/04/25 06:54 Assessment and Plan (1) Femur fracture: Status: Acute (2) Chronic hyponatremia: Status: Acute Plan 84 year old female with history of HTN admitted after a fall and sustaining a right femur fracture. s/p right femur retrograde IM Nail 05/31 now with diarrhea, PARUL, hyponatremia Hypertension with elevated blood pressure readings had high bp likely due to pain, then low bp now back to baseline continue amlodipine, add small dose of hydralazine X1 for better bp control Hypotension. Resolved bp improved with IVF s/p IVF follow BP closely resume medications as blood pressure allows Colitis with diarrhea. Seen on abd ct stool studies negative continue rocephin and flagyl rectal tube can be removed PARUL. Improving ?due to volume depletion from diarrhea continue to hold aldactone and lisinopril s/p IVF follow BMP nephrology consult>no indication for renal replacement Hyponatremia, Improving ?due to pain/volume depletion s/p\ IVF nephrology consult Right Femur fracture secondary to Fall s/p right femur retrograde IM Nail 05/31 Orthopedic f/u Continue pain mgmnt Lovenox for dvt ppx begin PT/OT for right femur retrograde IM Nail - WBAT Dispo - plan for acute rehab when medically clear Sinus pause. Pt had 6-8 seconds episode of asystole during right femur retrograde IM Nail procedure no further episodes echo with preserved EF discussed cardiology outpatient monitor technician recommended; should call cardiology office when getting ready for d/c from rehab and they will coordinate the monitor technician Neurogenic bladder continue Myrbetric GERD PPI HLD statin Mental health continue home medications DVT prophylaxis with lovenox 4 weeks post op (renally dosed currently) Full code dispo: acute rehab when medically stable Quality Stroke Does the patient have a stroke diagnosis?: No VTE Prior VTE?: No VTE Risk Level:: Medical - moderate - high VTE Device Contraindication: N/A - Device Ordered VTE Drug Contraindication: Treatment Not Indicated
[2025-06-05 09:37] LABS: Anion Gap 11 (12-20); Blood Urea Nitrogen 41 mg/dL (9-16); Calcium 8.8 mg/dL (8.4-10.2); Carbon Dioxide 20 mmol/L (22-29); Chloride 108 mmol/L (96-108); Creatinine Clr Calc Pharmacy 27.7; Estimated Glomerular Filt Rate 39; Potassium 3.6 mmol/L (3.3-5.1); Sodium 135 mmol/L (135-145)
[2025-06-05 09:56] VITALS: BP 125/60
--- NOTE | 2025-06-05 13:51 | MHC.CM.PN ---
PER HOSPITALIST, PT MAY BE READY TO DC TOMORROW [facility] INFORMED
[2025-06-05 15:39] VITALS: BP 155/67; PULSE 73; RESP 18; TEMP 37.1; O2SAT 100
[2025-06-05 19:24] VITALS: BP 153/72; PULSE 76; RESP 18; TEMP 36.7; O2SAT 100
[2025-06-05] MEDS: Latanoprost 0.005 % Ophth Sol 2.5 ML DROPS 1 DROP EYE-BOTH (20:35)
[2025-06-06] MEDS: Throat Lozenge, Medicated LOZENGE 1 LOZENGE MUCOUS MEM (01:53)
[2025-06-06 04:00] VITALS: BP 156/72; PULSE 77; TEMP 36.4; O2SAT 99
[2025-06-06] MEDS: metroNIDAZOLE/NS 500 MG/100 ML PIGGYBACK 100 MG IV (05:10)
[2025-06-06 07:30] VITALS: BP 155/69; PULSE 65; RESP 16; TEMP 36.3; O2SAT 100
[2025-06-06] MEDS: Mirabegron 50 MG TAB.ER.24H PO (08:10)
[2025-06-06] MEDS: 0.9 % Sodium Chloride Flush 3 ML SYRINGE IVFLUSH (08:11)
[2025-06-06 08:22] LABS: Hematocrit 28.3 % (37.0-47.0); Hemoglobin 9.3 g/dl (12.0-16.0); Mean Corpuscular HGB Conc 32.9 g/dl (31.0-35.0); Mean Corpuscular Hemoglobin 30.9 pg (27.0-33.0); Mean Corpuscular Volume 94.0 fL (80.0-98.0); NRBC Abs Auto 0.000 X10*3/uL (0.0-0.012); NRBC Pct Auto 0.0 /100WBC (0.0-0.2); Platelet Count 255 X10*3/uL (160-400); Red Blood Count 3.01 X10*6/uL (4.20-5.50); White Blood Count 11.7 X10*3/uL (4.8-10.8)
[2025-06-06 08:37] LABS: Anion Gap 10 (12-20); Blood Urea Nitrogen 27 mg/dL (9-16); Calcium 8.9 mg/dL (8.4-10.2); Carbon Dioxide 22 mmol/L (22-29); Chloride 110 mmol/L (96-108); Creatinine Clr Calc Pharmacy 32.8; Estimated Glomerular Filt Rate 48; Potassium 4.2 mmol/L (3.3-5.1); Sodium 138 mmol/L (135-145)
--- NOTE | 2025-06-06 09:01 | PC.NURSE ---
patient refused to get OOB to commode this am,stating I will get up later with PT, PT notified
[2025-06-06 10:14] VITALS: O2SAT 97
--- NOTE | 2025-06-06 10:42 | PM.DS ---
DS: Providers Provider Date of admission: 05/30/25 16:56 Date of discharge: 06/06/25 Primary care physician: Sailaja Shah MD Consults: 05/30/25 17:23 Consult to Orthopedics Routine Consulting Provider: [facility] [place] [facility] Reason for consultation: femur fracture 05/31/25 15:50 Consult to Cardiology Routine Consulting Provider: [facility] [place] [facility] Reason for consultation: 6-8 sec pauses during ortho procedure according to anesthesia 06/03/25 12:09 Consult to Nephrology Routine Consulting Provider: [facility] [place] [facility] Reason for consultation: parul, low na Has provider been notified: No 06/03/25 12:18 Consult to Gastroenterology Routine Consulting Provider: [facility] [place] [facility] Reason for consultation: colitis Has provider been notified: No DS: Diagnosis Discharge Diagnosis (1) Femur fracture: Status: Acute (2) Chronic hyponatremia: Status: Acute DS: Summary Hospital Course Hospital Course: Chief Complaint: Fall 84-year-old female with medical history of osteoarthritis, hypertension, neurogenic bladder presented to the ED after a mechanical slip and fall on her garage stairs. She was about to open the door and she fell to the side. She denied LOC or head trauma. She was able to use her medical alert button and called EMS. Patient denied chest pain, shortness of breath, nausea, vomiting, diarrhea, recent illness, sick contacts. She reports that she lives alone and has family but none live in town. She is very independent and still drives. At this time she reports pain only with movement. Hip and pelvis x-ray shows nondisplaced fracture of the distal right femur. Blood pressure is noted to be elevated and probably pain is contributing to this. Plan will be to admit patient for further management and treatment of acute femur fracture. Discharge Summary? The patient was admitted to the general medical floor following a mechanical fall on her garage stairs and was found to have a nondisplaced oblique fracture of the distal right femur. Orthopedics evaluated her, and she underwent right femur retrograde intramedullary nail fixation on 05/31, with postoperative plans for weight bearing as tolerated and PT/OT involvement. During surgery, she experienced a brief 6?8 second sinus pause without recurrence during admission. Evaulated by cardiology with recommendation for telemetry monitoring, echo confirmed preserved ejection fraction. [facility] will need to arrange outpatient cardiac monitoring at the time of discharge from rehab, needs to contact the cardiology office. Her blood pressures fluctuated during hospitalization initial hypertension likely related to pain, followed by transient hypotension that improved with IV fluids. Antihypertensives were held initially and later resumed as tolerated, with amlodipine continued and a single dose of hydralazine given for improved control. She developed diarrhea, and CT imaging demonstrated colitis; stool studies were negative, and she was treated with ceftriaxone and metronidazole with good response. Her PARUL and hyponatremia were attributed to volume depletion and possible pain related. Nephrology was consulted, IV fluids were administered, aldactone and lisinopril were held, and both renal function and sodium levels improved without the need for renal replacement therapy. Neurogenic bladder management continued with Myrbetriq. GERD was treated with a PPI, and her statin and mental health medications were continued. She received renally dosed Lovenox for postoperative DVT prophylaxis, with a planned four week course. PT/OT evaluated her and recommended discharge to acute rehabilitation for continued recovery and mobility training. She is hemodynamically stable and medically appropriate for discharge to a short term rehabilitation facility for ongoing supportive care. Continue few more days of antibiotics for colitis. Time Attestation Discharge Coordination Time (in mins): 48 Quality: Safe Use of Opioids Does Pt have an Active Cancer Diagnosis on the Problem List?: No Quality: Stroke Does the patient have a stroke diagnosis?: No Physical Exam Exam: Exam: Appearing in no acute distress head is normocephalic atraumatic eyes pupils are PERRLA sclera is anicteric mouth throat mucous membranes are intact and moist neck is supple no lymphadenopathy, no JVD noted lung sounds are clear to auscultation heart regular rate rhythm, clear S1, S2 positive bowel sounds, abdomen is soft, nontender neuro patient is alert x3, no focal deficits Vital Signs: Vital Signs: Last Vital Signs Temp 97.4 F 06/06/25 07:30 Pulse 65 06/06/25 07:30 Resp 16 06/06/25 07:30 BP 155/69 H 06/06/25 07:30 Pulse Ox 97 06/06/25 10:14 O2 Del Method Nasal Cannula 06/06/25 07:30 O2 Flow Rate 3 06/06/25 07:30 BMI result Body Mass Index 26.3 DS: Data Data Completed and Pending Labs on day of discharge: Laboratory Results - last 24 hr 06/06/25 06/06/25 08:09 08:10 WBC 11.7 H RBC 3.01 L Hgb 9.3 L Hct 28.3 L MCV 94.0 MCH 30.9 MCHC 32.9 RDW 13.2 Plt Count 255 D MPV 9.6 Absolute Nucleated RBC 0.000 Nucleated RBC % (auto) 0.0 Sodium 138 Potassium 4.2 Chloride 110 H Carbon Dioxide 22 Anion Gap 10 L BUN 27 H Creatinine 1.09 Estim Creat Clear Calc 32.8 Estimated GFR 48 Random Glucose 104 Calcium 8.9 Discharge Plan Discharge Anticipated Discharge Date/Time: 06/06/25 11:25 Patient Disposition: Xfer Inpatient Rehab Fac Discharge Diagnosis: Hypertension Hypotension Colitis Diarrhea PARUL Hyponatremia Right femur fracture status post IM nailing Sinus pause Referrals: Sailaja Shah MD [Primary Care Provider, Internal Medicine] - 1 Week Lala Fulton PA-C [Physician Flotation Tank Operator, Orthopedics] - 06/14/25 1:15 pm Referral Note: 06/14/25 at 1:15pm Lamont Marlow MD [Physician, Cardiology] - 1 Week Referral Note: Needs follow up outpatient for sinus pause, possible Holter monitor Discharge Medications: New cefuroxime axetil 500 mg tablet 500 mg PO BID Qty: 8 0RF metronidazole 500 mg tablet 500 mg PO Q8H Qty: 12 0RF Continued citalopram 40 mg tablet 40 mg PO DAILY trazodone 50 mg tablet 50 mg PO BEDTIME pravastatin 40 mg tablet 40 mg PO DAILY omeprazole 40 mg capsule,delayed release(DR/EC) 40 mg PO DAILY tramadol 50 mg tablet 50 mg PO QID PRN (Reason: pain) amlodipine-benazepril 5-20 mg capsule 1 cap PO DAILY hydroxyzine HCl 10 mg tablet 10 mg PO BID mirabegron [Myrbetriq] 50 mg tablet extended release 24 hr 50 mg PO DAILY carvedilol 6.25 mg tablet 12.5 mg PO BID Qty: 60 0RF docusate sodium 100 mg Capsule 100 mg PO DAILY PRN (Reason: Constipation) Qty: 30 0RF latanoprost 0.005 % drops 1 drp BEDTIME Vitamin B-12 50 mcg Tablet 50 mcg PO DAILY cholecalciferol (vitamin D3) 25 mcg (1,000 unit) Tablet 25 mcg PO DAILY omega-3 fatty acids-fish oil 684-1,200 mg Capsule,Delayed Release(Dr/Ec) 1 cap PO DAILY Centrum Silver Women 8 mg iron-400 mcg-50 mcg Tablet 1 tab PO DAILY Simbrinza 1-0.2 % drops,suspension 1 drp ophthalmic (eye) TID PreserVision AREDS-2 250-90-40-1 mg Capsule 1 tab PO BID spironolactone 25 mg tablet 25 mg PO DAILY Discharge Orders: Discharge Order (Routine); Ordered 06/06/25 Ordered By: Rula Can Diet: Advance to usual diet Activity on Discharge: As tolerated Stand Alone Forms: Patient Portal Discharge page Print Language: Romanian Care Plan Goals: Schedule an appointment with Cardiology office for possible Holter monitor placement secondary to sinus pause during surgical procedure Complete course of antibiotics Health Concerns: Hypertension Hypotension Colitis Diarrhea PARUL Hyponatremia Right femur fracture status post IM nailing Sinus pause Plan of Treatment: Follow up with primary care provider as needed Take all medications as prescribed Assessment: See discharge summary
== END 2025-06-06 13:20 | DRG 481 ==
LOC: HO.ED 15:59 → HO.EDOVER 17:02 → HO.S3 23:55 → HO.IMC 05-31 16:41 → HO.S3 06-04 16:25
PROVIDERS: Internal Medicine; Orthopaedic Surgery; Physician Assistant Medical; Admitting Provider Student in an Organized Health Care Education/Training Program; Emergency Provider Student in an Organized Health Care Education/Training Program; PCP Internal Medicine; Visit Provider Nurse Practitioner Acute Care
PROC: 0QHB36Z Insertion of Intramedullary Internal Fixation Device into Right Lower Femur, Percutaneous Approach (ICD-10-PCS; principal; 2025-05-31 13:50)
DX: S72.491A Other fracture of lower end of right femur, initial encounter for closed fracture (principal); E87.1 Hypo-osmolality and hyponatremia; M97.11XA Periprosthetic fracture around internal prosthetic right knee joint, initial encounter; N17.9 Acute kidney failure, unspecified; K55.9 Vascular disorder of intestine, unspecified; W19.XXXA Unspecified fall, initial encounter; K21.9 Gastro-esophageal reflux disease without esophagitis; N31.9 Neuromuscular dysfunction of bladder, unspecified; E78.5 Hyperlipidemia, unspecified; I49.5 Sick sinus syndrome; I95.9 Hypotension, unspecified; Z79.899 Other long term (current) drug therapy
CPT/HCPCS: 36415; 71045; 73502; 73552; 73560; 73564; 74176; 80048; 80053; 82947; 83605; 83615; 83735; 83935; 84300; 85025; 85027; 85610; 86850; 86900; 86901; 87493; 87507; 93005; 93306; 97162; 97166; 97530; 97535; 99284; C1713; J0131; J0690; J0696; J1100; J1650; J1836; J1885; J2003; J2270; J2405; J2704; J2795; J3010; J7120

== ENCOUNTER → 2025-05-30 14:25 | Outpatient (BNV) | payer MEDICARE, OTHER, SELFPAY | PROVIDERS: Emergency Provider Student in an Organized Health Care Education/Training Program; PCP Internal Medicine; Visit Provider Radiology Diagnostic Radiology | DX: Z01.818 Encounter for other preprocedural examination (principal) | CPT/HCPCS: 71045; 73502; 73552; 73564 ==

== ENCOUNTER 2025-05-30 16:56 | Outpatient (BNV) | payer MEDICARE, OTHER, SELFPAY | END 2025-06-02 11:12 | PROVIDERS: Admitting Provider Student in an Organized Health Care Education/Training Program; Emergency Provider Student in an Organized Health Care Education/Training Program; PCP Internal Medicine; Visit Provider Radiology Diagnostic Ultrasound | DX: Z48.89 Encounter for other specified surgical aftercare (principal) | CPT/HCPCS: 73560 ==

== ENCOUNTER 2025-05-30 16:56 | Outpatient (BNV) | payer MEDICARE, OTHER, SELFPAY | END 2025-06-03 10:17 | PROVIDERS: Admitting Provider Student in an Organized Health Care Education/Training Program; Emergency Provider Student in an Organized Health Care Education/Training Program; PCP Internal Medicine; Visit Provider Radiology Diagnostic Radiology | DX: K52.89 Other specified noninfective gastroenteritis and colitis (principal); R18.8 Other ascites; I25.84 Coronary atherosclerosis due to calcified coronary lesion | CPT/HCPCS: 74176 ==

== ENCOUNTER 2025-05-30 16:56 | Outpatient (BNV) | payer MEDICARE, OTHER, SELFPAY | END 2025-06-01 11:49 | PROVIDERS: Admitting Provider Student in an Organized Health Care Education/Training Program; Emergency Provider Student in an Organized Health Care Education/Training Program; PCP Internal Medicine; Visit Provider Internal Medicine Cardiovascular Disease | DX: I51.7 Cardiomegaly (principal); I35.0 Nonrheumatic aortic (valve) stenosis | CPT/HCPCS: 93010; 93306 ==

== ENCOUNTER 2025-05-30 16:56 | Outpatient (BNV) | payer MEDICARE, OTHER, SELFPAY | END 2025-06-02 10:42 | PROVIDERS: Admitting Provider Student in an Organized Health Care Education/Training Program; Emergency Provider Student in an Organized Health Care Education/Training Program; PCP Internal Medicine; Visit Provider Internal Medicine Cardiovascular Disease | DX: I51.7 Cardiomegaly (principal) | CPT/HCPCS: 93010 ==

== ENCOUNTER → 2025-05-30 16:56 | Outpatient (BNV) | payer MEDICARE, OTHER, SELFPAY | PROVIDERS: Admitting Provider Student in an Organized Health Care Education/Training Program; Emergency Provider Student in an Organized Health Care Education/Training Program; PCP Internal Medicine; Visit Provider Internal Medicine | DX: R10.9 Unspecified abdominal pain (principal); K52.9 Noninfective gastroenteritis and colitis, unspecified | CPT/HCPCS: 99222 ==

== ENCOUNTER → 2025-05-30 16:56 | Outpatient (BNV) | payer MEDICARE, OTHER, SELFPAY | PROVIDERS: Admitting Provider Student in an Organized Health Care Education/Training Program; Emergency Provider Student in an Organized Health Care Education/Training Program; PCP Internal Medicine; Visit Provider Physician Assistant | DX: S72.90XA Unspecified fracture of unspecified femur, initial encounter for closed fracture (principal) | CPT/HCPCS: 27506; 99024; 99223 ==

== ENCOUNTER → 2025-05-30 16:56 | Outpatient (BNV) | payer MEDICARE, OTHER, SELFPAY | PROVIDERS: Admitting Provider Student in an Organized Health Care Education/Training Program; Emergency Provider Student in an Organized Health Care Education/Training Program; PCP Internal Medicine; Visit Provider Internal Medicine Nephrology | DX: N17.9 Acute kidney failure, unspecified (principal) | CPT/HCPCS: 99222 ==

== ENCOUNTER → 2025-05-30 16:56 | Outpatient (BNV) | payer MEDICARE, OTHER, SELFPAY | PROVIDERS: Admitting Provider Student in an Organized Health Care Education/Training Program; Emergency Provider Student in an Organized Health Care Education/Training Program; PCP Internal Medicine; Visit Provider Nurse Practitioner Acute Care | DX: S72.90XA Unspecified fracture of unspecified femur, initial encounter for closed fracture (principal) | CPT/HCPCS: 99232; 99499 ==

== ENCOUNTER → 2025-05-30 16:56 | Outpatient (BNV) | payer MEDICARE, OTHER, SELFPAY | PROVIDERS: Admitting Provider Student in an Organized Health Care Education/Training Program; Emergency Provider Student in an Organized Health Care Education/Training Program; PCP Internal Medicine; Visit Provider Internal Medicine Cardiovascular Disease | DX: I45.5 Other specified heart block (principal) | CPT/HCPCS: 99223 ==